=== PATIENT | male | born 1940 | race Caucasian/White ===

== ENCOUNTER 2020-12-13 08:02 | Outpatient (CLI) | payer MEDICARE, SELFPAY ==
--- NOTE | 2020-12-13 18:24 | P.HP_ITS ---
H&P: HPI History of Present Illness Date/Time: 12/13/20 18:24 80-year-old male presents postoperatively with right- sided epistaxis. Status post endoscopic sinus surgery. Chief Complaint: Postoperative epistaxis Review of Systems Constitutional: Constitutional: Denies fatigue, Denies fever(s) and Denies lethargy Eyes: Eyes: Denies blurry vision and Denies change in vision ENT: Reports as per HPI Cardiovascular: Cardiovascular: Denies chest pain Respiratory: Respiratory: Denies cough Endocrine: Endocrine: Denies fatigue Hematologic/Lymphatic: Hematologic/Lymphatic: Denies easy bleeding, Denies easy bruising and Denies lymphadenopathy Allergic/Immunologic: Allergic/Immunologic: Denies seasonal rhinorrhea PMFSH Social History Social History Gender identity (if verbalized by the patient): Male Spiritual care concerns: No Meds Home Medications and Allergies Home Medications Medication Instructions Recorded Confirmed Type sodium,potassium,mag sulfates 17.5 See Rx Instructions PO .COMPLEX 11/14/20 Rx gram-3.13 gram-1.6 gram oral soln #354 ml Adult One Daily Multivitamin 1 tablet PO DAILY 12/13/20 12/13/20 History allopurinol PO DAILY 12/13/20 History lisinopril-hydrochlorothiazide 20 - 25 mg PO DAILY 12/13/20 12/13/20 History nebivolol [Bystolic] 10 mg PO DAILY 12/13/20 12/13/20 History simvastatin 40 mg PO DAILY 12/13/20 12/13/20 History tamsulosin 0.4 mg PO DAILY 12/13/20 12/13/20 History Allergies Allergy/AdvReac Type Severity Reaction Status Date / Time No Known Allergies Allergy Unverified 12/13/20 12:30 Exam Const: General: cooperative, healthy appearing, comfortable, well developed and alert HENMT: Head: normal to inspection, normocephalic and atraumatic Ears: hearing grossly normal bilaterally, external ears normal, TM's normal bilaterally and EAC's normal General nose exam: Normal external nose present, Normal nares present and Other nasal findings present (Right-sided epistaxis mild left epistaxis as well) Face and sinus: normal facial exam Mouth: Yes Normal oral and palatal mucosa present, Yes lip normal, Yes tongue normal, Yes oropharynx normal and Yes moist mucous membranes Teeth and gingiva: dentition normal and gingiva normal Throat: posterior oropharynx normal, tonsils normal and uvula midline Eyes: General: appearance normal, both eyes and all related structures Periorbital: periorbital findings normal Eyelids: eyelids normal Conjunctivae: conjunctivae normal Sclera: sclerae normal Neck: Neck: normal visual inspection, full ROM and no lymphadenopathy Thyroid: thyroid normal Lymphatic: no lymphadenopathy noted Resp: Effort & Inspection: normal respiratory effort and able to speak in complete sentences Cardio: Jugular venous distension: no JVD Neuro: Cranial nerves: Yes CN's II-XII intact bilaterally Assessment and Plan Assessment and plan (1) Postoperative hemorrhage: Status: Acute Assessment and Plan: Plan is for the OR for control of epistaxis will perform endoscopically. Risks were discussed including bleeding infection damage to vision damaged brain CSF leak for further procedures. The patient voiced understanding and agreed. (2) Epistaxis: Code(s): R04.0 - Epistaxis Status: Acute
--- NOTE | 2020-12-13 18:26 | WPDHPUPDATE1 ---
History and Physical Update Update Date/Time: 12/13/20 18:26 History and Physical has been reviewed, including an updated exam of the patient. There are NO changes in the patient's condition. Risks, benefits, and alternatives have been discussed and questions answered. Patient agrees to proceed with procedure.
== END 2020-12-13 08:03 | disposition home or self-care (01) ==
LOC: ANHCOVIDVC 08:02
PROVIDERS: PCP Internal Medicine
DX: Z23 Encounter for immunization (principal)
CPT/HCPCS: 0001A; 91300

== ENCOUNTER → 2020-12-24 00:27 | Outpatient (CLI) | payer MEDICARE, SELFPAY ==
[2020-12-24 18:31] LABS: SARS-CoV-2 RNA PCR Negative
== END ==
PROVIDERS: PCP Internal Medicine; Visit Provider Internal Medicine Gastroenterology
DX: Z01.812 Encounter for preprocedural laboratory examination (principal); Z20.822 Contact with and (suspected) exposure to COVID-19
CPT/HCPCS: C9803; U0003; U0005

== ENCOUNTER 2020-12-27 04:27 | Day surgery (SDC) | payer MEDICARE, SELFPAY ==
[2020-12-13 12:31] VITALS: BMI 28.8
[2020-12-27 08:38] VITALS: BP 147/67; PULSE 79; RESP 18; TEMP 36.6; O2SAT 99
[2020-12-27] MEDS: LACTATED RINGERS 1,000 ML 150 ML IV CONT (08:45)
--- NOTE | 2020-12-27 09:23 | WPDANESEPPF ---
Anes - Initial Pre Proc Eval Procedure: Operation Date: 12/27/20 10:00 Proposed Procedures p Colonoscopy - Alessandro Castaneda MD Date/Time: 12/27/20 09:23 Surgeon: Alessandro Castaneda MD Pre Op Diagnosis: Positive ColoGuard Patient Data Age: 80 Gender: M Height: 5 ft 10 in Weight: 92.7 kg Last Vital Signs Temp 98 F 12/27/20 08:38 Pulse 79 12/27/20 08:38 Resp 18 12/27/20 08:38 BP 147/67 H 12/27/20 08:38 Pulse Ox 99 12/27/20 08:38 Allergies Allergy/AdvReac Type Severity Reaction Status Date / Time No Known Allergies Allergy Unverified 12/27/20 08:36 Home Medications Medication Instructions Recorded Confirmed Type Adult One Daily Multivitamin 1 tablet PO DAILY 12/13/20 12/27/20 History allopurinol PO DAILY 12/13/20 History lisinopril-hydrochlorothiazide 20 - 25 mg PO DAILY 12/13/20 12/27/20 History nebivolol [Bystolic] 10 mg PO DAILY 12/13/20 12/27/20 History simvastatin 40 mg PO DAILY 12/13/20 12/27/20 History tamsulosin 0.4 mg PO DAILY 12/13/20 12/27/20 History Patient hx anesthesia problems: none Family hx anesthesia problems: none PMFSH Social History Social History Living arrangements: with family Gender identity (if verbalized by the patient): Male Spiritual care concerns: No Anes - Eval Final PreProcedure Day of Procedure 12/27/20 09:23 Patient weight: obese Heart: regular rate and rhythm Lungs: clear to auscultation Airway: Mallampati scale Last oral intake: >/= 8 hours ASA classification: III Emergent: no Anesthetic plan: proceed Anesthesia type and monitoring: general GIVS and standard monitoring Informed Consent: The patient's anesthetic plan and its attendant risks and benefits were discussed with the patient/family/POA. Questions were solicited and answers provided to the satisfaction of the patient/family/POA.
--- NOTE | 2020-12-27 09:57 | PM.HPGS ---
History of Present Illness History of Present Illness Consent: Risks, benefits, and alternatives have been discussed and questions answered. Patient agrees to proceed with procedure. Chief complaint: Positive ColoGuard Narrative: Gera Cruz is a 80 year old male with last colonoscopy about 10 years ago, had cologuard + Review of Systems Constitutional: Constitutional: Denies headache(s) and Denies weakness Eyes: Eyes: Denies blurry vision ENT: Reports Normal hearing present, Denies headache(s) and Denies neck pain Cardiovascular: Cardiovascular: Denies chest pain and Denies dyspnea Respiratory: Respiratory: Denies dyspnea Gastrointestinal: Gastrointestinal: Reports no additional gastrointestinal complaints Genitourinary: Genitourinary: Denies dysuria Musculoskeletal: Musculoskeletal: Denies neck pain Integumentary/Breasts: Skin/Breast: Denies dry skin Neurologic: Reports Normal hearing present, Denies headache(s) and Denies weakness Psychiatric: Psychiatric: Denies anxiety Endocrine: Endocrine: Denies change in body appearance Hematologic/Lymphatic: Hematologic/Lymphatic: Denies easy bleeding Allergic/Immunologic: Allergic/Immunologic: Denies urticaria PMFSH Past Medical History Medical History (Updated 12/27/20 @ 09:58 by Alessandro aCstaneda MD) Positive colorectal cancer screening using Cologuard test Social History Social History Living arrangements: with family Gender identity (if verbalized by the patient): Male Spiritual care concerns: No Meds Home Medications and Allergies Home Medications Medication Instructions Recorded Confirmed Type Adult One Daily Multivitamin 1 tablet PO DAILY 12/13/20 12/27/20 History allopurinol PO DAILY 12/13/20 History lisinopril-hydrochlorothiazide 20 - 25 mg PO DAILY 12/13/20 12/27/20 History nebivolol [Bystolic] 10 mg PO DAILY 12/13/20 12/27/20 History simvastatin 40 mg PO DAILY 12/13/20 12/27/20 History tamsulosin 0.4 mg PO DAILY 12/13/20 12/27/20 History Allergies Allergy/AdvReac Type Severity Reaction Status Date / Time No Known Allergies Allergy Unverified 12/27/20 08:36 Vital Signs Vital Signs - 24 hr 12/27/20 08:38 Temperature 98 F Pulse Rate 79 Respiratory Rate 18 Blood Pressure 147/67 H Pulse Oximetry 99 Exam Const: General: comfortable and no acute distress HENMT: General nose exam: Normal nares present Eyes: General: appearance normal, both eyes and all related structures Neck: Neck: no JVD Resp: Auscultation: clear to auscultation bilaterally Cardio: Rate: regular rate Rhythm: regular rhythm GI: Inspection: non-distended GI Palp: Yes Soft to palpation Skin: General skin exam: normal color Neuro: General: gait normal Speech: normal speech Extrem: General: normal to inspection Psych: Mental Status: mental status grossly normal Assessment and Plan Assessment and plan (1) Positive colorectal cancer screening using Cologuard test: Code(s): R19.5 - Other fecal abnormalities Status: Acute Assessment and Plan: colonoscopy
--- NOTE | 2020-12-27 10:27 | ECG_ITS ---
Measurements Intervals [place] Rate: 67 P: RI: 0 QRS: 62 QRSD: 109 T: 31 QT: 422 QTc: 446 Interpretive Statements ATRIAL FIBRILLATION INTRAVENTRICULAR CONDUCTION DELAY BASELINE ARTIFACT- I, II, III, AVR, AVL, AVF, V1-V6 ABNORMAL ECG Electronically Signed On 12-27-2020 12:08:43 CDT by Albin Reich D.O.
[2020-12-27 10:31] VITALS: BP 145/81; PULSE 64; RESP 15; O2SAT 100
--- NOTE | 2020-12-27 10:40 | SUR.PHASEII ---
Pt new onset Atrial fibrillation. EKG completed and given to Dr. Narayan. Call placed to cardiology.
[2020-12-27 10:41] VITALS: BP 131/75; PULSE 60; RESP 15; O2SAT 100
[2020-12-27 10:51] VITALS: BP 150/65; PULSE 60; RESP 18; O2SAT 100
[2020-12-27 11:01] VITALS: BP 150/105; PULSE 88; RESP 27; O2SAT 100
--- NOTE | 2020-12-27 11:03 | SUR.PHASEII ---
Pt's spouse at bedside.
[2020-12-27 11:11] VITALS: BP 140/82; PULSE 61; RESP 27; O2SAT 100
--- NOTE | 2020-12-27 11:21 | SUR.PHASEII ---
Dr. Nails called back. Will look at EKG.
--- NOTE | 2020-12-27 11:49 | SUR.PHASEII ---
Dr. Nails cardiology at bedside states he will schedule an appointment for the pt and start him on xarelto pt ok to discharge. Dr. Robles updated and agrees with the plan.
--- NOTE | 2020-12-27 12:02 | SUR.PHASEII ---
Pt awaiting prescription for Xarelto to be brought down from tomato paste maker office. Bleeding precautions reviewed with pt for xarelto.
--- NOTE | 2020-12-27 12:10 | PM.CNCAR ---
Assessment and Plan Assessment and plan (1) Essential hypertension: Code(s): I10 - Essential (primary) hypertension Status: Acute Assessment and Plan: seems to be pretty well controlled at home. Continue lisinopril / hydrochlorothiazide and Bystolic (2) Atrial fibrillation: Code(s): I48.91 - Unspecified atrial fibrillation Status: Acute Assessment and Plan: newly recognized. He has a chads Vasc score of 3 given his age and high blood pressure history. Anticoagulation is warranted. I did talk about the risks, benefits and alternatives of anticoagulation versus anti-platelet therapy. I also talked about the risk of stroke. Risk benefit ratio would support anticoagulation. He verbalized understanding and is agreeable to start. Will start him on Xarelto at 20 mg p.o. daily. Will check a basic metabolic panel, magnesium level, TSH and free T4 level to ensure electrolyte stability as well as proper dosing of Xarelto. 2D echocardiogram with Doppler will be ordered and reviewed. This is going to be performed as an outpatient. He will have follow-up in our office within 2-4 weeks. If he has any significant bleeding issues that he should stop Xarelto can contact our office or go to the emergency department. He is instructed start his Xarelto in 2 days since he recently had a polyp removed today. He will eventually need an outpatient stress test. Will likely pursue rate control strategy Given his asymptomatic status. He is also instructed to stop his aspirin once he starts Xarelto. (3) Positive colorectal cancer screening using Cologuard test: Code(s): R19.5 - Other fecal abnormalities Status: Acute Assessment and Plan: polyps noted (4) Hyperlipidemia: Code(s): E78.5 - Hyperlipidemia, unspecified Status: Acute Assessment and Plan: continue statin History of Present Illness History of Present Illness Consult date/time: 12/27/20 12:10 Requesting physician: Eder Narayan MD Consult reason: atrial fibrillation Reason For Visit: Positive ColoGuard Narrative: date of service: 12/27/2020 Reason consultation: Atrial fibrillation History: Patient is an 80-year-old male who a consult to see in the GI lab because of and newly recognized atrial fibrillation. Patient was having a colonoscopy today but while on monitor his rhythm was found to be irregular. He does not have a known history of atrial fibrillation. EKG was performed and confirmed atrial fibrillation. Cardiology consultation was therefore requested. Patient was noted to have a couple polyps and diverticulosis but no active bleeding. Polyps were clipped. He does have a history of hypertension but no known cardiac disease otherwise. He sees Dr. Richard as an outpatient. From a cardiac perspective he feels fine and denies any chest pain, shortness of breath, syncope, presyncope, paroxysmal nocturnal dyspnea, orthopnea, edema or palpitations. Review of Systems Review of Systems: All systems reviewed & are unremarkable except as noted in HPI and below Constitutional: Constitutional: Denies weakness Eyes: Eyes: Denies blurry vision ENT: Reports Normal hearing present Cardiovascular: Cardiovascular: Denies chest pain Respiratory: Respiratory: Denies dyspnea Gastrointestinal: Gastrointestinal: Denies abdominal pain Genitourinary: Genitourinary: Denies dysuria Musculoskeletal: Musculoskeletal: Denies neck pain Integumentary/Breasts: Skin/Breast: Denies dry skin Neurologic: Denies headache(s) Psychiatric: Psychiatric: Denies anxiety Endocrine: Endocrine: Denies fatigue Hematologic/Lymphatic: Hematologic/Lymphatic: Denies easy bleeding Allergic/Immunologic: Allergic/Immunologic: Denies GI upset with certain foods PMFSH Past Medical History Medical History (Updated 12/27/20 @ 12:15 by Mauro Nails MD) Essential hypertension Positive colorectal cancer screening using
--- NOTE | 2020-12-27 12:18 | SUR.PHASEII ---
Addendum entered by Francine Heath RN 12/27/20 12:56: Pt to start Xarelto on Wednesday per record retrieval specialist instructions. Original Note: Pt recieved prescription for xarelto and appointment time from the record retrieval specialist office.
--- NOTE | 2020-12-27 13:46 | SUR.PHASEII ---
Information on Xarelto printed from [employer] on Xarelto mailed to pt address. Pt called and notified.
== END 2020-12-27 12:19 | disposition home or self-care (01) ==
PROVIDERS: PCP Internal Medicine; Visit Provider Internal Medicine Gastroenterology
PROC: 0DJD8ZZ Inspection of Lower Intestinal Tract, Via Natural or Artificial Opening Endoscopic (ICD-10-PCS; CPT 45378; principal; 2020-12-27 10:00)
DX: R19.5 Other fecal abnormalities (principal); D12.2 Benign neoplasm of ascending colon; D12.0 Benign neoplasm of cecum; K57.30 Diverticulosis of large intestine without perforation or abscess without bleeding; K64.8 Other hemorrhoids; I10 Essential (primary) hypertension; I48.91 Unspecified atrial fibrillation; E78.5 Hyperlipidemia, unspecified
CPT/HCPCS: 45385; 88305; 93005; C9803; J2704; J7120; U0003; U0005

== ENCOUNTER 2021-01-03 07:59 | Outpatient (CLI) | payer MEDICARE, SELFPAY | END 2021-01-03 08:00 | disposition home or self-care (01) | LOC: ANHCOVIDVC 07:59 | PROVIDERS: PCP Internal Medicine | DX: Z23 Encounter for immunization (principal) | CPT/HCPCS: 0002A; 91300 ==

== ENCOUNTER 2021-12-08 12:47 | Outpatient (CLI) | payer MEDICARE, SELFPAY ==
--- NOTE | ~2021-12-08 | US_ITS ---
EXAMINATION: US carotid duplex BI DATE: 12/08/2021 14:51 INDICATION: Dizziness. Pain in the back of the head. TECHNIQUE: Grayscale, color Doppler, and pulsed Doppler images of the cervical carotid arteries were obtained. The degree of vessel stenosis is placed in one of the following categories: normal, <50%, 5 0-69%, >=70% but less than near-occlusion, near-occlusion, or total occlusion. Note that percent sten osis relative to normal distal artery lumen diameter is indirectly measured from velocity measurement s as described by Nigel, et al. Radiology 2003; 229:340-346. COMPARISON: None. FINDINGS: RIGHT: The right common carotid artery (CCA) peak systolic velocity (PSV) is 175 cm/s. The right internal ca rotid artery (ICA) PSV is 90 cm/s. The right ICA end-diastolic velocity (EDV) is 18 cm/s. The right I CA/CCA PSV ratio is 0.5. Grayscale and color Doppler images yield an estimate of <50% diameter reduct ion from plaque in the ICA. There is antegrade flow in the right vertebral artery. LEFT: The left CCA PSV is 121 cm/s. The left ICA PSV is 88 cm/s. The left ICA EDV is 16 cm/s. The left ICA/ CCA PSV ratio is 0.7. Grayscale and color Doppler images yield an estimate of <50% diameter reduction from plaque in the ICA. There is antegrade flow in the left vertebral artery. IMPRESSION: 1. <50% stenosis in the right internal carotid artery. 2. <50% stenosis in the left internal carotid artery. Reviewed, dictated and finalized at location A.
== END 2021-12-08 12:48 | disposition home or self-care (01) ==
LOC: ANHIMG 12:51
PROVIDERS: PCP Internal Medicine; Visit Provider Internal Medicine Cardiovascular Disease
DX: R42 Dizziness and giddiness (principal); I65.23 Occlusion and stenosis of bilateral carotid arteries
CPT/HCPCS: 93880

== ENCOUNTER 2024-06-29 16:06 | Outpatient (CLI) | payer MEDICARE, SELFPAY ==
--- NOTE | ~2024-06-29 | US_ITS ---
RIGHT LOWER EXTREMITY VENOUS ULTRASOUND Ordering provider: Mauro Nails MD History: . leg edema . Comparison: None. FINDINGS: --COMMON FEMORAL: Patent and free of thrombus. Normal compressibility, phasic flow and augmentation. --PROXIMAL SUPERFICIAL FEMORAL: Patent and free of thrombus. Normal compressibility, phasic flow and augmentation. --DISTAL SUPERFICIAL FEMORAL: Patent and free of thrombus. Normal compressibility, phasic flow and au gmentation. --POPLITEAL: Patent and free of thrombus. Normal compressibility, phasic flow and augmentation. --POSTERIOR TIBIAL: Patent and free of thrombus. Normal compressibility, phasic flow and augmentation . IMPRESSION: Negative right lower extremity venous US. No deep vein thrombosis. Reviewed, dictated and finalized at location A.
== END 2024-06-29 16:07 | disposition home or self-care (01) ==
LOC: ANHIMG 16:11
PROVIDERS: PCP Internal Medicine; Visit Provider Internal Medicine Cardiovascular Disease
DX: R60.0 Localized edema (principal)
CPT/HCPCS: 93971

== ENCOUNTER 2024-07-10 14:03 | Inpatient (IN) | payer MEDICARE, SELFPAY ==
[2024-07-10] VITALS (8 sets, daily range): BP systolic 113–138; BP diastolic 43–67; PULSE 59–82; RESP 16; TEMP 36.4–36.9; O2SAT 97–100
--- NOTE | ~2024-07-10 | XR_ITS ---
XR chest 2V Ordering provider: German Young MD History: 84 years Male with . syncope . Comparison: None. FINDINGS: MEDIASTINUM: The cardiac silhouette is slightly enlarged. LUNGS: No infiltrates, effusions or pneumothorax. OTHER: No free air under the diaphragm. Degenerative spine. IMPRESSION: No acute cardiopulmonary pathology. Reviewed, dictated and finalized at location A.
--- NOTE | ~2024-07-10 | MR_ITS ---
EXAMINATION: MR brain/brain stem wo con DATE: 07/12/2024 08:14 INDICATION: Suspicion for stroke and syncope. TECHNIQUE: Magnetic resonance imaging (MRI) of the brain and brainstem was performed without intraven ous contrast. Sequences included sagittal and axial T1-weighted SE, axial diffusion-weighted FS SE, , axial T2-weighted FLAIR, and axial T2-weighted FSE. Apparent diffusion coefficient (ADC) maps were c reated. COMPARISON: None. FINDINGS: Posterior right scalp hematoma. Moderate-sized region of encephalomalacia at the right frontal lobe e xtending into the anterior insula consistent with sequela of chronic infarct. There are no areas of r estricted diffusion to suggest acute infarction. No intracranial hemorrhage or abnormal intracranial mass lesion. There are scattered areas of nonspecific increased T2-weighted signal intensity in the c erebral white matter, predominantly involving the deep and periventricular white matter. There are no intraparenchymal signal abnormalities seen on the other pulse sequences. The ventricles are symmetri c and normal in size. There are no abnormal extra-axial fluid collections. Flow voids are seen in the cerebral arteries on the T2-weighted sequences consistent with their expected patency. Changes of bi lateral intraocular lens replacement. Visualized orbits and soft tissues are unremarkable. Mild mucos al thickening the bilateral ethmoid sinuses. 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 IMPRESSION: 1. Aging brain with chronic infarct involving the right frontal lobe and insula. No acute intracrania l process. 2. Right posterior scalp hematoma. Reviewed, dictated and finalized at location A. IMPRESSION: 1. Aging brain with chronic infarct involving the right frontal lobe and insula . No acute intracranial process. 2. Right posterior scalp hematoma.
--- NOTE | ~2024-07-10 | CT_ITS ---
EXAMINATION: CT lumbar spine wo con DATE: 07/10/2024 22:39 INDICATION: Back pain. Fall. TECHNIQUE: Computed tomography (CT) of the lumbar spine was performed without intravenous contrast. A utomated exposure control and iterative reconstruction technique were employed. The dose-length produ ct was 1271.13 mGy-cm. COMPARISON: Lumbar spine radiographs 07/10/2024 FINDINGS: There is a 4 mm stone in left kidney. There is a 4 mm stone in right kidney. The prostate i s severely enlarged. Alignment is normal. Vertebral body heights are normal. There is mildly decrease d disc height at L1-L2 and L2-L3. There are bridging endplate osteophytes at T11-T12 and from L1 to L 4 and L5-S1, consistent with diffuse idiopathic skeletal hyperostosis. There is fracture of the endpl ate osteophytes at T12-L1. The following disc levels are specifically discussed: T12-L1: The disc does not extend beyond the endplate margin. There is severe bilateral facet joint os teoarthritis. There is no neural foraminal stenosis. There is no central canal stenosis. L1-L2: The disc is bulging. There is severe bilateral facet joint osteoarthritis. There is mild right neural foraminal stenosis. There is mild central canal stenosis. L2-L3: The disc is bulging. There is severe bilateral facet joint osteoarthritis. There is mild bilat eral neural foraminal stenosis. There is mild central canal stenosis. L3-L4: The disc is bulging. There is severe bilateral facet joint osteoarthritis. There is mild bilat eral neural foraminal stenosis. There is mild central canal stenosis. L4-L5: The disc is bulging. There is severe bilateral facet joint osteoarthritis. There is moderate r ight and severe left neural foraminal stenosis. There is mild central canal stenosis. L5-S1: The disc does not extend beyond the endplate margin. There is severe bilateral facet joint ost eoarthritis. There is mild bilateral neural foraminal stenosis. There is no central canal stenosis. IMPRESSION: 1. DISH with nondisplaced fracture through the endplate osteophytes at T12-L1. 2. Moderate lumbar spondylosis. Reviewed, dictated and finalized at location A.
--- NOTE | ~2024-07-10 | MR_ITS ---
MRI of the lumbar spine Clinical History: Osteophyte fracture T12-L1, DISH Technique: Axial T2-weighted images, and sagittal T1-weighted, T2-weighted, and and T2 fat-sat images were acquired. Findings: No acute fracture or dislocation seen in the lumbar spine. Vertebral bodies maintain normal height and alignment. No suspicious bone marrow signal abnormality seen. At L1-L2, there is no significant disc bulge or herniation. There is moderate facet hypertrophy. No c entral canal stenosis or neural foraminal narrowing. At L2-L3, there is no significant disc bulge or herniation. There is moderate facet hypertrophy. No s refugio canal stenosis or neural foraminal narrowing. L3-L4, there is no significant disc bulge or herniation. There is moderate to advanced facet hypertro phy. No spinal canal stenosis. There is minimal left neural foraminal narrowing. Right neural foramen preserved. At L4-L5, there is diffuse disc bulge and severe facet arthropathy, resulting in severe spinal canal stenosis/thecal sac compression. There is severe left neural foraminal narrowing, and moderate right neural foraminal narrowing. L5-S1, there is minimal disc bulge with advanced facet arthropathy. No central canal stenosis or defi nite neural foraminal narrowing. Paravertebral soft tissues are unremarkable. Impression: Severe degenerative spondylosis at L4-L5, as detailed above. Mild degenerative changes in the remainder of the lumbar spine. No fracture or subluxation seen. Reviewed, dictated and finalized at [facility]. Impression: Severe degenerative spondylosis at L4-L5, as detailed above. Mild degenerative changes in the remainder of the lumbar spine. No fracture or subluxation seen.
--- NOTE | ~2024-07-10 | XR_ITS ---
EXAMINATION: XR lumbar spine 2-3V DATE: 07/10/2024 17:29 INDICATION: Low back pain. Fall. TECHNIQUE: 3 views of lumbar spine were obtained. COMPARISON: None. FINDINGS: Alignment is normal. Vertebral body heights are normal. There is mildly decreased disc heig ht at L2-L3. There are bridging endplate osteophytes at multiple levels in the spine, consistent with diffuse idiopathic skeletal hyperostosis (DISH). There is multilevel facet joint hypertrophy, severe in lower lumbar spine. IMPRESSION: 1. Mild lumbar spondylosis. 2. DISH. Reviewed, dictated and finalized at location A.
--- NOTE | ~2024-07-10 | CT_ITS ---
EXAMINATION: CTA brain carotid DATE: 07/11/2024 21:02 INDICATION: Syncope. TECHNIQUE: Computed tomographic angiography (CTA) of the head was performed without and with 100 mL O [id number] intravenous contrast. CTA of the neck was performed with intravenous contrast. Automated exposure control and iterative reconstruction technique were employed. The dose-length product was 1 648.56 mGy-cm. Maximum intensity projection and volume rendered 3D-reconstructions were created by nany cleary technologist on a separate workstation. COMPARISON: Head CT 07/10/2024 FINDINGS: HEAD CTA: There is an old infarct involving the right frontal lobe and right insula. There are scatte red areas of low attenuation in the cerebral white matter, which is within normal limits for the benedict ent's age. There is no intracranial hemorrhage, acute infarction, or abnormal intracranial mass lesio n. The ventricles are normal in size. There are likely changes of ocular lens replacement surgeries. There is mild mucosal thickening in the ethmoid sinuses. The mastoid air cells are normal. There is r ight posterior scalp soft tissue swelling. Right vertebral artery is dominant. There is no significan t stenosis of basilar artery or the posterior cerebral arteries. There is no significant stenosis of the intracranial internal carotid arteries or anterior or middle cerebral arteries. Anterior communic ating artery is normal. The posterior communicating arteries are normal. There is no aneurysm. NECK CTA: There are no pathologically enlarged lymph nodes. There is no significant stenosis of the v ertebral arteries. There is plaque in the proximal internal carotid. There is 0% stenosis of the prox imal right internal carotid artery relative to normal distal artery lumen diameter (NASCET criteria). There is 0% stenosis of the proximal left internal carotid artery relative to normal distal artery l umen diameter. There is severe cervical spondylosis. IMPRESSION: 1. 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 2. No aneurysm or significant intracranial arterial stenosis. 3. 0% stenosis of the proximal internal carotid arteries relative to normal distal artery lumen diame ters (NASCET criteria). Reviewed, dictated and finalized at location A. IMPRESSION: 1. 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 2. No aneurysm or significant intracranial arterial stenosis. 3. 0% stenosis of the proximal internal carotid arteries relative to normal dis jasmine artery lumen diameters (NASCET criteria).
--- NOTE | ~2024-07-10 | CT_ITS ---
EXAMINATION: CT brain wo con DATE: 07/10/2024 14:53 INDICATION: Head injury. TECHNIQUE: Computed tomography (CT) of the head was performed without intravenous contrast. The mA wa s adjusted according to patient size. Iterative reconstruction technique was employed. The dose-lengt h product was 832.33 mGy-cm. COMPARISON: None FINDINGS: There is an old infarct involving right frontal lobe and right insula. There are scattered areas of low attenuation in the cerebral white matter, which is within normal limits for the patient' s age. There is no intracranial hemorrhage, acute infarction, or abnormal intracranial mass lesion. T he ventricles are normal in size. There is a right posterior scalp hematoma. There are likely changes of ocular lens replacement surgeries. There is mild mucosal thickening in the ethmoid sinuses. The m astoid air cells are normal. IMPRESSION: 1. 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 Reviewed, dictated and finalized at location A.
--- NOTE | 2024-07-10 14:24 | ECG_ITS ---
Test Date: 2024-07-10 14:31:05 Measurements Intervals [place] Rate: 52 P: 0 VT: 0 QRS: 61 QRSD: 112 T: 38 QT: 435 QTc: 407 Interpretive Statements SINUS BRADYCARDIA FIRST DEGREE AV BLOCK MODERATE INTRAVENTRICULAR CONDUCTION DELAY [110+ ms QRS DURATION] VENTRICULAR PREMATURE COMPLEX ABNORMAL RHYTHM ECG No previous ECG available for comparison Electronically Signed On 07-10-2024 14:39:36 CDT by Cas Kidd M.D.
[2024-07-10 14:51] LABS: Basophils Absolute Auto 0.1 K/mm3 (0.0-0.1); Basophils Percent Auto 0.7 % (0.2-1.2); Eosinophils Absolute Auto 0.1 K/mm3 (0-0.3); Hematocrit 37.3 % (42.0-52.0); Immature Granulocyte Absolute 0.03 K/mm3 (0.00-0.031); Immature Granulocyte Percent A 0.4 % (0-0.5); Lymphocytes Absolute Auto 2.08 K/mm3 (0.9-3.2); Lymphocytes Percent Auto 25.8 % (18.3-44.2); Mean Corpuscular HGB Conc 32.2 g/dl (32-36); Mean Corpuscular Hemoglobin 31.3 pg (26-34); Mean Corpuscular Volume 97.1 fl (80-100); Mean Platelet Volume 11.2 fl (7.4-10.4); Monocytes Absolute Auto 0.4 K/mm3 (0.1-0.6); Monocytes Percent Auto 5.3 % (2.6-8.5); Neutrophils Absolute Auto 5.4 K/mm3 (1.3-6.7); Neutrophils Percent Auto 66.8 % (45.5-73.1); Platelet Count Result 148 k/mm3 (150-375); Red Blood Count 3.84 M/mm3 (4.6-6.20); White Blood Count 8.1 K/mm3 (4.5-10.0)
[2024-07-10 15:02] LABS: Alanine Aminotransferase 15 U/L (6-50); Albumin Level 3.9 g/dL (3.5-5.1); Alkaline Phosphatase 64 U/L (38-126); Anion Gap 7 mmol/L (4-12); Aspartate Amino Transferase 27 U/L (17-59); Bilirubin,Total 0.8 mg/dL (0.2-1.3); Blood Urea Nitrogen 38 mg/dL (9-20); Calcium 9.6 mg/dL (8.4-10.2); Carbon Dioxide 29 mmol/L (22-30); Chloride 102 mmol/L (98-107); Estimated CRCL calculation 34 ml/min; Estimated Glomerular Filt Rate 44; Glucose 155 mg/dL (65-110); Potassium 3.6 mmol/L (3.4-5.0); Sodium 138 mmol/L (137-145)
--- NOTE | 2024-07-10 17:22 | PC.NURSE ---
Lab called to add on ordered Troponin.
[2024-07-10 17:47] LABS: Troponin I < 0.012 ng/mL (0.000-0.034)
--- NOTE | 2024-07-10 18:03 | ED.SYNCOPE ---
HPI - Syncope General Chief Complaint: Syncope Stated Complaint: syncopy Time Seen by Provider: 07/10/24 14:26 History of Present Illness HPI narrative: patient is an 84-year-old male who presents ER with syncope. 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 Does have a hematoma. He takes Xarelto for atrial fibrillation. Patient found to be bradycardic by EMS and on arrival to ER. He does take Bystolic. Patient is oriented to self and place but not year or month. He does report some mild low back pain but no numbness or weakness the extremities. Patient did have loss of urine and emesis as result of this episode. Related Data Home Medications Medication Instructions Recorded Confirmed Adult One Daily Multivitamin 1 tablet PO DAILY 12/13/20 12/27/20 allopurinol PO DAILY 12/13/20 lisinopril-hydrochlorothiazide 20 - 25 mg PO DAILY 12/13/20 12/27/20 nebivolol 10 mg tablet (Bystolic) 10 mg PO DAILY 12/13/20 12/27/20 simvastatin 40 mg tablet 40 mg PO DAILY 12/13/20 12/27/20 tamsulosin 0.4 mg capsule 0.4 mg PO DAILY 12/13/20 12/27/20 Allergies Allergy/AdvReac Type Severity Reaction Status Date / Time No Known Allergies Allergy Unverified 12/27/20 08:36 Review of Systems Review of Systems: All systems reviewed & are unremarkable except as noted in HPI and below Constitutional: Constitutional: Reports no additional constitutional complaints Cardiovascular: Cardiovascular: Reports no additional cardiovascular complaints Respiratory: Respiratory: Reports no additional respiratory complaints Gastrointestinal: Gastrointestinal: Reports no additional gastrointestinal complaints Neurologic: Reports syncope, Reports headache(s), Denies focal weakness and Denies numbness [facility] Past Medical History Medical History (Updated 07/10/24 @ 18:34 by Jack Newton MD) Essential hypertension Positive colorectal cancer screening using Cologuard test Family History Family History (Updated 12/27/20 @ 12:13 by Mauro Nails MD) Mother Cerebrovascular accident Social History Social History (Updated 12/27/20 @ 12:13 by Mauro Nails MD) Smoking status: Never smoker Alcohol intake: never Substance use: never Living arrangements: with family Gender identity (if verbalized by the patient): Male Spiritual care concerns: No Exam Narrative: GENERAL: Well-appearing , emesis particulate in robin, well-nourished, and in no acute distress. HEAD: Normocephalic, atraumatic. EYES: PERRL and EOMI. ENT: Mucous membranes moist. CHEST: Clear to auscultation. No respiratory distress. HEART: bradycardic with occasional drop be correlating with PVC. Normal peripheral pulses. ABDOMEN: Soft, nontender, nondistended. Back: No midline tenderness of the T-spine. Mild tenderness near L4 along the midline but no paraspinal tenderness. No step-off/abrasion/bruising. EXTREMITIES: Normal range of motion. No edema. SKIN: Warm, dry, no rash. NEURO: Alert and oriented x3 after little time in the ER. Course Course Emergency Course: Patient return to mental baseline. Mild concussion. 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 Bradycardia has improved. Will admit for observation given the unprovoked nature syncopal event. Will have Cardiology consulted. Vital Signs Vital signs: Vital Signs Temperature 97.5 F L 07/10/24 14:23 Pulse Rate 60 07/10/24 14:23 Respiratory Rate 16 07/10/24 14:23 Blood Pressure 130/54 L 07/10/24 14:23 Pulse Oximetry 100 07/10/24 14:23 Oxygen Delivery Room Air 07/10/24 14:23 Temperature 97.5 F L 07/10/24 14:23 Pulse Rate 59 L 07/10/24 17:32 Respiratory Rate 16 07/10/24 17:32 Blood Pressure 127/56 L 07/10/24 17:32 Pulse Oximetry 100 07/10/24 17:32 Oxygen Delivery Room Air 07/10/24 14:23 MDM - Syncope Lab Data
[2024-07-10 19:06] LABS: Troponin I < 0.012 ng/mL (0.000-0.034)
[2024-07-10] MEDS: HYDROcodone/acetaminophen (*CRX) 5-325 MG TABLET 1 TAB PO (19:12)
[2024-07-10] MEDS: ACETAMINOPHEN 325 MG TABLET 650 MG PO (19:13)
--- NOTE | 2024-07-10 20:20 | ECG_ITS ---
Test Date: 2024-07-10 20:37:15 Measurements Intervals [place] Rate: 72 P: 74 DE: 340 QRS: 62 QRSD: 105 T: 41 QT: 387 QTc: 424 Interpretive Statements SINUS RHYTHM WITH FIRST DEGREE AV BLOCK WITH OCCASIONAL SUPRAVENTRICULAR PREMATURE COMPLEXES Compared to ECG 07/10/2024 14:31:05 Sinus bradycardia no longer present Electronically Signed On 07-11-2024 12:01:31 CDT by Jesica Burch M.D.
--- NOTE | 2024-07-10 20:28 | PM.IMHP ---
H&P: HPI History of Present Illness Date/Time: 07/10/24 20:28 [facility] Past Medical History Medical History (Updated 07/10/24 @ 18:34 by Jack Newton MD) Essential hypertension Positive colorectal cancer screening using Cologuard test Family History Family History Mother Cerebrovascular accident Social History Social History (Updated 12/27/20 @ 12:13 by Mauro Nails MD) Smoking status: Never smoker Alcohol intake: never Substance use: never Do You Feel Safe in your Home?: Yes Lack of Transportation: No Lack of Food: Never True Current Housing: I Have Housing Concerned About Future Housing: No Difficulty Paying Gas/Electric Bills: No Difficulty Paying for Meds: No Currently Unemployed: No Education: Bachelor's Degree Difficulty w/ Childcare or Family Care: No Living arrangements: with family Gender identity (if verbalized by the patient): Male Spiritual care concerns: No Meds Home Medications and Allergies Home Medications Medication Instructions Recorded Confirmed Type Adult One Daily Multivitamin 1 tablet PO DAILY 12/13/20 07/10/24 History nebivolol 10 mg tablet (Bystolic) 10 mg PO DAILY 12/13/20 07/10/24 History simvastatin 40 mg tablet 40 mg PO DAILY 12/13/20 07/10/24 History tamsulosin 0.4 mg capsule 0.4 mg PO DAILY 12/13/20 07/10/24 History allopurinol 300 mg tablet 300 mg PO DAILY 07/10/24 07/10/24 History lisinopril 20 1 tablet PO DAILY 07/10/24 07/10/24 History mg-hydrochlorothiazide 25 mg tablet rivaroxaban 20 mg tablet (Xarelto) 20 mg PO DAILY 07/10/24 07/10/24 History Allergies Allergy/AdvReac Type Severity Reaction Status Date / Time No Known Allergies Allergy Unverified 12/27/20 08:36 Vital Signs Vital Signs - 24 hr 07/10/24 14:23 07/10/24 15:45 07/10/24 17:13 Temperature 97.5 F L Pulse Rate 60 61 60 Respiratory Rate 16 16 Blood Pressure 130/54 L 121/61 113/52 L Pulse Oximetry 100 97 Oxygen Delivery Room Air 07/10/24 17:13 07/10/24 17:32 10/14/24 19:52 Temperature 98.4 F Pulse Rate 77 59 L 82 Respiratory Rate 16 16 Blood Pressure 122/60 127/56 L 114/49 L Pulse Oximetry 100 100 Oxygen Delivery H&P: Results Labs Labs: Short CBC 07/10/24 Range/Units 14:43 WBC 8.1 (4.5-10.0) K/mm3 Hgb 12.0 L (14.0-18.0) g/dL Hct 37.3 L (42.0-52.0) % Plt Count 148 L (150-375) k/mm3 BMP 07/10/24 14:43 Sodium 138 Potassium 3.6 Chloride 102 Carbon Dioxide 29 BUN 38 H Creatinine 1.50 H Glucose 155 H Calcium 9.6 Cardiac Enzymes 07/10/24 07/10/24 Range/Units 14:43 18:39 Troponin I < 0.012 < 0.012 (0.000-0.034) ng/mL Liver Function 07/10/24 Range/Units 14:43 Total Bilirubin 0.8 (0.2-1.3) mg/dL AST 27 (17-59) U/L ALT 15 (6-50) U/L Alkaline Phosphatase 64 (38-126) U/L Albumin 3.9 (3.5-5.1) g/dL
[2024-07-10 21:48] LABS: Troponin I 0.014 ng/mL (0.000-0.034)
[2024-07-10] MEDS: POTASSIUM CHLORIDE 20 MEQ ER TABLET 40 MEQ PO (21:58)
--- NOTE | 2024-07-10 22:00 | PM.IMHP ---
H&P: HPI History of Present Illness Date/Time: 07/10/24 21:00 Chief Complaint: ?I fell? Narrative: 84-year-old male with past medical history paroxysmal atrial fibrillation, essential hypertension, hyperlipidemia, gout and BPH who presented to the ER via EMS from [facility] [employer] on the patient was noted to suddenly fall backwards and strike his head. It is suspected the patient actually had a syncopal episode resulting in his fall. Patient was noted have a parietal hematoma and is on Xarelto. He denies any headache or vision changes. In the field the patient was noted to be bradycardic when patient arrived to the ER he had some mild bradycardia by EKG with a rate of 52 demonstrated what looks like first-degree block with frequent supraventricular premature ventricular complexes. The patient is on Bystolic. His QTC was normal. After arriving to the medical floor the patient heart rate has been normal sinus with rates between the 70s and 80s. The patient denies any prodrome all symptoms. He does have chronic dyspnea on exertion that is unchanged from baseline. He has chronic (for the last 8-10 months) lymphedema of the right lower extremity in an area of prior fracture that has improved since he started wearing support socks. He denies any chest pain, cough, congestion, vertigo, or vision changes. 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 Patient is alert oriented to person, time and situation. He knows that he is in a hospital but despite multiple attempts cannot tell me which hospital he is at despite naming his physician (Dr. Nails) that actually practice in the hospital. Source of information is from patient who is a relatively good historian and from ER physician report and review of past medical records/external medication records. He denied any recent changes in medications but it appears that the patient was started on Lasix 20 mg daily in late May. His Bystolic dose has not changed. He has chronic BPH. He reports that his urinary frequency although chronic has worsened in recent months and he is getting up 4-5 times a night to pee. Over the last several months he has also developed dribbling postvoid. He feels like at times he does not completely empty his bladder. He has not followed up with his urologist in the last year so. He denies any changes in his chronic urinary symptoms. Patient also reports that he has some relatively mild back pain on a day-to-day basis over the last couple of months. But since his fall he is having severe back pain with lifting his legs or even slight movements in the bed. The pain is also more localized in the mid lumbar spine and is 10/10 in intensity despite [place] and morphine. He reports his sensation is intact. He has not had any bowel or bladder incontinence. He reports he does not take any prescription medications for his back pain in his pain usually improves with activity at home. Review of Systems Review of Systems: 12 systems were reviewed with pertinent positives and negatives per HPI. Except as documented in the HPI, all other systems were reviewed and are negative. 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 Patient denies any known history of CVA or symptoms. Essential hypertension Paroxysmal atrial fibrillation Presbycusis of both ears With bilateral hearing aids Surgical History Surgical History (Updated 07/10/24 @ 22:27 by Fany Diaz DO) History of colonoscopy with polypectomy (2020) Hx of cholecystectomy Status post cataract extraction of both eyes with insertion of intraocular lens Status post open reduction with internal fixation of fracture Right tibia Family History Family History (R
[2024-07-11] VITALS (13 sets, daily range): BP systolic 103–130; BP diastolic 50–78; PULSE 54–74; RESP 16; TEMP 36.4–37.1; O2SAT 91–98; BMI 26.2
[2024-07-11 06:15] LABS: Basophils Percent Auto 0.4 % (0.2-1.2); Eosinophils Percent Auto 0.2 % (0-4.4); Hematocrit 35.2 % (42.0-52.0); Hemoglobin 11.4 g/dL (14.0-18.0); Immature Granulocyte Absolute 0.03 K/mm3 (0.00-0.031); Immature Granulocyte Percent A 0.3 % (0-0.5); Lymphocytes Absolute Auto 1.98 K/mm3 (0.9-3.2); Lymphocytes Percent Auto 19.7 % (18.3-44.2); Mean Corpuscular HGB Conc 32.4 g/dl (32-36); Mean Corpuscular Hemoglobin 31.9 pg (26-34); Mean Corpuscular Volume 98.6 fl (80-100); Mean Platelet Volume 11.3 fl (7.4-10.4); Monocytes Absolute Auto 0.6 K/mm3 (0.1-0.6); Monocytes Percent Auto 6.2 % (2.6-8.5); Neutrophils Absolute Auto 7.4 K/mm3 (1.3-6.7); Neutrophils Percent Auto 73.2 % (45.5-73.1); Platelet Count Result 150 k/mm3 (150-375); Red Blood Count 3.57 M/mm3 (4.6-6.20); White Blood Count 10.1 K/mm3 (4.5-10.0)
[2024-07-11 06:18] LABS: Alanine Aminotransferase 15 U/L (6-50); Albumin Level 3.7 g/dL (3.5-5.1); Alkaline Phosphatase 51 U/L (38-126); Anion Gap 7 mmol/L (4-12); Aspartate Amino Transferase 26 U/L (17-59); Blood Urea Nitrogen 44 mg/dL (9-20); Calcium 9.6 mg/dL (8.4-10.2); Carbon Dioxide 31 mmol/L (22-30); Chloride 102 mmol/L (98-107); Estimated CRCL calculation 24 ml/min; Estimated Glomerular Filt Rate 30; Glucose 109 mg/dL (65-110); Potassium 4.8 mmol/L (3.4-5.0); Sodium 140 mmol/L (137-145)
[2024-07-11] MEDS: TAMSULOSIN HCL 0.4 MG CAPSULE PO (08:37)
[2024-07-11] MEDS: allopurinoL 300 MG TABLET PO (08:38)
[2024-07-11] MEDS: RIVAROXABAN 20 MG TABLET PO (08:38)
[2024-07-11] MEDS: SIMVASTATIN 20 MG TABLET 40 MG PO (08:38)
[2024-07-11] MEDS: HYDROcodone/acetaminophen (*CRX) 5-325 MG TABLET 1 TAB PO (08:42)
--- NOTE | 2024-07-11 10:14 | PM.CNCAR ---
Assessment and Plan Assessment and plan (1) Bradycardia: Code(s): R00.1 - Bradycardia, unspecified Status: Acute Assessment and Plan: He has sinus bradycardia with first degree AV block as well as intermittent second degree AV block Type 1. No significant bradycardia or pauses. Hold Bystolic. (2) Syncope: Qualifiers: Syncope type: unspecified Qualified Code(s): R55 - Syncope and collapse Code(s): R55 - Syncope and collapse Status: Acute Assessment and Plan: Etiology is unclear at this point. Possibly related to arrhythmia/bradycardia, but no significant bradycardia, pauses, or high degree AVB that would explain syncope. As above, hold bystolic and continue to monitor on telemtry. Outpatient bus driver/monitor for ongoing assessment upon discharge. 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) use of anticoagulants Status: Acute Assessment and Plan: Continue Xarelto for pAF (4) Hyperlipidemia: Code(s): E78.5 - Hyperlipidemia, unspecified Status: Acute Assessment and Plan: On statin (5) Lumbar back pain: Code(s): M54.50 - Low back pain, unspecified Status: Acute Assessment and Plan: Pain management per primary team History of Present Illness History of Present Illness Consult date/time: 07/11/24 10:14 Requesting physician: Jack Newton MD Consult reason: Other (syncope, bradycardia) Reason For Visit: Syncope Narrative: Gera Cruz is an 84 year old male with atrial fibrillation, hypertension, and hyperlipidemia who enters the hospital following a syncopal episode. The patient was walking around [employer] yesterday when his reported she looked back and saw him fall backwards and lose consciousness. The patient does not recall this event but reports he felt well prior to this event and denies feeling any chest pain, palpitations, shortness of breath, dizziness. He denies any past syncopal events. He was noted to be bradycardic in the emergency department which prompted cardiology consultation. At the time of my evaluation he is lying comfortably in bed and has a complaint of back pain which is chronic but worsened by his fall yesterday. No other active complaints at this time. 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 Patient denies any known history of CVA or symptoms. Essential hypertension Paroxysmal atrial fibrillation Presbycusis of both ears With bilateral hearing aids Surgical History Surgical History History of colonoscopy with polypectomy (2020) Hx of cholecystectomy Status post cataract extraction of both eyes with insertion of intraocular lens Status post open reduction with internal fixation of fracture Right tibia Family History Family History Mother Cerebrovascular accident Social History Social History Social History: The patient lives at home with his of 62 years. They raised 3 daughters. The patient still drives. 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 He is a lifelong nonsmoker and does not drink alcohol. Code status: DNR/DNI (the patient states that if he were in a pre arrest situation with a cardiac arrhythmia he would be okay with external pacing or medications to keep his heart rate up however if his heart actually stopped he would not want extraordinary measures with CPR or ventilator support.) Surrogate decision m
--- NOTE | 2024-07-11 10:28 | P.PNIM_ITS ---
Progress Note: A&P Assessment and Plan (1) Syncope: Qualifiers: Syncope type: unspecified Qualified Code(s): R55 - Syncope and collapse Code(s): R55 - Syncope and collapse Status: Acute Assessment and Plan: 07/11/24: * sustained a ground level fall while at [employer], thought to be a syncopal episode * orthostatic blood pressures ordered Q shift * cardiology consulted * Bystolic held per cardiology recommendation * echo ordered with bubble study * neurology consulted * EEG ordered * MRI of brain and brainstem ordered without contrast * CTA of brain and carotids ordered (2) Bradycardia: Code(s): R00.1 - Bradycardia, unspecified Status: Acute Assessment and Plan: 07/11/24: * EKG showing sinus bradycardia with first-degree AV block a rate of 52, QTC 407 * Bystolic held per cardiology recommendation * cardiology consulted for additional syncope workup (3) Hematoma of right parietal scalp: Qualifiers: Encounter type: initial encounter Qualified Code(s): S00.03XA - Contusion of scalp, initial encounter Code(s): S00.03XA - Contusion of scalp, initial encounter Status: Acute Assessment and Plan: 07/11/24: * likely due to fall * head CT was negative for any acute intracranial process, 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 (4) Lumbar back pain: Code(s): M54.50 - Low back pain, unspecified Status: Acute Assessment and Plan: 07/11/24: * lumbar spine x-ray showed mild lumbar spondylosis and DISH * lumbar spine CT shown dish with nondisplaced fracture through the endplate osteophytes at T12-L1, moderate lumbar spondylosis * neurosurgery consulted * continue pain control (5) Essential hypertension: Code(s): I10 - Essential (primary) hypertension Status: Acute Assessment and Plan: 07/11/24: * blood pressure ranging * continue lisinopril and hydrochlorothiazide (6) Brain concussion: Qualifiers: Encounter type: subsequent encounter Loss of consciousness presence/duration: unknown LOC status Qualified Code(s): S06.0XAD - Concussion with loss of consciousness status unknown, subsequent encounter Code(s): S06.0XAA - Concussion with loss of consciousness status unknown, initial encounter Status: Acute Assessment and Plan: 07/11/24: * likely due to fall with head injury * head CT did not show any acute abnormality (7) BPH associated with nocturia: Code(s): N40.1 - Benign prostatic hyperplasia with lower urinary tract symptoms; R35.1 - Nocturia Status: Acute Assessment and Plan: 07/11/24: * continue tamsulosin (8) Atrial fibrillation: Code(s): I48.91 - Unspecified atrial fibrillation Status: Acute Assessment and Plan: 07/11/24: * continue Xarelto Subjective Date/time seen: 07/11/24 10:28 Interval history: Interval history: This is an 84 year old male who presented to the hospital for evaluation after syncopal episode. Work up in the hospital included a Head CT which showed old in farct involving the right frontal lobe and right insula. Chest x-ray that was negative. Lumbar spine x-ray which showed mild lumbar spondylosis diffuse idiopathic skeletal hyperostosis. lumbar spine CT shown dish with nondisplaced fracture through the endplate of T12 through L1, moderate lumbar spondylosis. Initial labs showed a normal white blood cell count of 8.1, hemoglobin 12.0, platelet count 148, creati
--- NOTE | 2024-07-11 10:28 | PM.IMPN ---
Progress Note: A&P Assessment and Plan (1) Syncope: Qualifiers: Syncope type: unspecified Qualified Code(s): R55 - Syncope and collapse Code(s): R55 - Syncope and collapse Status: Acute Assessment and Plan: 07/11/24: sustained a ground level fall while at [employer], thought to be a syncopal episode orthostatic blood pressures ordered Q shift cardiology consulted Bystolic held per cardiology recommendation echo ordered with bubble study neurology consulted EEG ordered MRI of brain and brainstem ordered without contrast CTA of brain and carotids ordered (2) Bradycardia: Code(s): R00.1 - Bradycardia, unspecified Status: Acute Assessment and Plan: 07/11/24: EKG showing sinus bradycardia with first-degree AV block a rate of 52, QTC 407 Bystolic held per cardiology recommendation cardiology consulted for additional syncope workup (3) Hematoma of right parietal scalp: Qualifiers: Encounter type: initial encounter Qualified Code(s): S00.03XA - Contusion of scalp, initial encounter Code(s): S00.03XA - Contusion of scalp, initial encounter Status: Acute Assessment and Plan: 07/11/24: likely due to fall head CT was negative for any acute intracranial process, 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 (4) Lumbar back pain: Code(s): M54.50 - Low back pain, unspecified Status: Acute Assessment and Plan: 07/11/24: lumbar spine x-ray showed mild lumbar spondylosis and DISH lumbar spine CT shown dish with nondisplaced fracture through the endplate osteophytes at T12-L1, moderate lumbar spondylosis neurosurgery consulted continue pain control (5) Essential hypertension: Code(s): I10 - Essential (primary) hypertension Status: Acute Assessment and Plan: 07/11/24: blood pressure ranging continue lisinopril and hydrochlorothiazide (6) Brain concussion: Qualifiers: Encounter type: subsequent encounter Loss of consciousness presence/duration: unknown LOC status Qualified Code(s): S06.0XAD - Concussion with loss of consciousness status unknown, subsequent encounter Code(s): S06.0XAA - Concussion with loss of consciousness status unknown, initial encounter Status: Acute Assessment and Plan: 07/11/24: likely due to fall with head injury head CT did not show any acute abnormality (7) BPH associated with nocturia: Code(s): N40.1 - Benign prostatic hyperplasia with lower urinary tract symptoms; R35.1 - Nocturia Status: Acute Assessment and Plan: 07/11/24: continue tamsulosin (8) Atrial fibrillation: Code(s): I48.91 - Unspecified atrial fibrillation Status: Acute Assessment and Plan: 07/11/24: continue Xarelto Subjective Date/time seen: 07/11/24 10:28 Interval history: Interval history: This is an 84 year old male who presented to the hospital for evaluation after syncopal episode. 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 Chest x-ray that was negative. Lumbar spine x-ray which showed mild lumbar spondylosis diffuse idiopathic skeletal hyperostosis. lumbar spine CT shown dish with nondisplaced fracture through the endplate of T12 through L1, moderate lumbar spondylosis. Initial labs showed a normal white blood cell count of 8.1, hemoglobin 12.0, platelet count 148, creatinine 1.5, EGFR 44, troponin negative x3, TSH 1.910. Initial EKG shown sinus bradycardia with first-degree AV block with a rate of 52, QTC 407. Patient was given pain medication while in the ED. cardiology was also consulted for the syncope. Orthostatic blood pressures did not show a drop in blood pressure or heart rate going from a supine to sitting and sitting to standing position. His Bystolic was held as the possible culprit
--- NOTE | 2024-07-11 11:55 | PC.NURSE ---
Dr. Reyes from Neurosurgery called after consult, and reports his is not working in [place] today, he spoke with Dr. Tim who will see patient
[2024-07-11] MEDS: HYDROcodone/acetaminophen (*CRX) 10-325 MG TABLET 1 TAB PO ×2 (18:07→22:19)
[2024-07-11] MEDS: SODIUM CHLORIDE 0.9% IV 1,000 ML 100 ML IV CONT (22:19)
[2024-07-12] VITALS (11 sets, daily range): BP systolic 95–124; BP diastolic 51–62; PULSE 51–90; RESP 16–20; TEMP 36.6–36.8; O2SAT 96–100
--- NOTE | 2024-07-12 | ECHO_ITS ---
Patient Info Name: Gera Cruz Age: 84 years : 1940 Gender: Male Ht: 70 in Wt: 182 lbs BSA: 2.03 m2 HR: 51 bpm BP: 121 / 59 mmHg Technical Quality: Fair Exam Date: 07/12/2024 1:50 PM Exam Location: Echo Lab Patient Status: Inpatient Admit Date: 07/11/2024 Staff Ordering Physician: Nya King APRN Special Education Teaching Assistant: Saad Sanders RDCS Attending Provider: Gabriel Rosas MD Referring Physician: Fernando POPE; Exam Type: CA echo doppler w bubble study Study Info Indications R55 - Syncope and collapse Complete two-dimensional, color flow and Doppler transthoracic echocardiogram is performed with agitated saline. Contrast/Agitated Saline Contrast/Ag. Saline: Agitated Saline Amount: 14.00 ml Existing IV Access: Yes IV Access Condition: patent with no signs of infiltration Summary 1. Left ventricular chamber dimension is normal. 2. Left ventricular systolic function is normal, estimated at 60-65%. 3. There is mildly increased left ventricular wall thickness. 4. Right ventricular systolic function is normal. 5. Left atrial chamber dimension is severely enlarged. 6. Right atrial chamber dimension is severely enlarged. 7. Intact interatrial septum visualized by color flow and agitated saline imaging. Negative bubble study. 8. There is mild aortic valve regurgitation. 9. There is mild to moderate mitral valve regurgitation. 10. There is mild tricuspid valve regurgitation. Left Ventricle Left ventricular chamber dimension is normal. Left ventricular systolic function is normal, estimated at 60-65%. There is mildly increased left ventricular wall thickness. The left ventricular diastolic function is abnormal. Right Ventricle Right ventricular chamber dimension is normal. Right ventricular systolic function is normal. Left Atria Left atrial chamber dimension is severely enlarged. Right Atria Right atrial chamber dimension is severely enlarged. Atrial Septum Intact interatrial septum visualized by color flow and agitated saline imaging. Negative bubble study. Aortic Valve The aortic valve is probable trileaflet. There is no aortic valve stenosis. There is mild aortic valve regurgitation. There is moderate aortic valve calcification. Pulmonic Valve The pulmonic valve is not well visualized. There is no pulmonic regurgitation. Mitral Valve There is mild to moderate mitral valve regurgitation. The mitral valve annulus is mildly calcified. Tricuspid Valve There is mild tricuspid valve regurgitation. Pericardium/Pleural There is no pericardial effusion. Inferior Vena Cava Inferior vena cava is not well visualized. Aorta The aortic root size at the sinus of Valsalva is normal. Left Ventricular Outflow Tract Name Value Normal LVOT 2D LVOT Diameter 2.0 cm LVOT Doppler LVOT Peak Gradient 4 mmHg LVOT Mean Gradient 2 mmHg LVOT VTI 20 cm LVOT VTI/AV VTI Ratio 0.7 LVOT Stroke Volume 60 ml LVOT CO 4.5 l/min LVOT CI
[2024-07-12] MEDS: HYDROcodone/acetaminophen (*CRX) 10-325 MG TABLET 1 TAB PO ×2 (05:03→17:24)
[2024-07-12 05:13] LABS: Basophils Absolute Auto 0.1 K/mm3 (0.0-0.1); Basophils Percent Auto 0.5 % (0.2-1.2); Eosinophils Absolute Auto 0.1 K/mm3 (0-0.3); Eosinophils Percent Auto 0.7 % (0-4.4); Hematocrit 38.4 % (42.0-52.0); Hemoglobin 11.9 g/dL (14.0-18.0); Immature Granulocyte Absolute 0.04 K/mm3 (0.00-0.031); Immature Granulocyte Percent A 0.4 % (0-0.5); Lymphocytes Absolute Auto 1.93 K/mm3 (0.9-3.2); Lymphocytes Percent Auto 17.6 % (18.3-44.2); Mean Corpuscular Hemoglobin 30.7 pg (26-34); Mean Platelet Volume 10.8 fl (7.4-10.4); Monocytes Absolute Auto 0.6 K/mm3 (0.1-0.6); Monocytes Percent Auto 5.6 % (2.6-8.5); Neutrophils Absolute Auto 8.3 K/mm3 (1.3-6.7); Neutrophils Percent Auto 75.2 % (45.5-73.1); Platelet Count Result 163 k/mm3 (150-375); Red Blood Count 3.88 M/mm3 (4.6-6.20); Red Cell Distribution Width 13.2 % (11.5-14.5)
[2024-07-12 05:31] LABS: Alanine Aminotransferase 15 U/L (6-50); Albumin Level 4.1 g/dL (3.5-5.1); Alkaline Phosphatase 60 U/L (38-126); Anion Gap 8 mmol/L (4-12); Aspartate Amino Transferase 30 U/L (17-59); Bilirubin,Total 0.7 mg/dL (0.2-1.3); Blood Urea Nitrogen 46 mg/dL (9-20); Calcium 9.9 mg/dL (8.4-10.2); Carbon Dioxide 30 mmol/L (22-30); Chloride 100 mmol/L (98-107); Estimated CRCL calculation 27 ml/min; Estimated Glomerular Filt Rate 34; Glucose 134 mg/dL (65-110); Potassium 3.9 mmol/L (3.4-5.0); Sodium 138 mmol/L (137-145)
--- NOTE | 2024-07-12 07:18 | P.PNIM_ITS ---
Progress Note: A&P Assessment and Plan (1) Syncope: Qualifiers: Syncope type: unspecified Qualified Code(s): R55 - Syncope and collapse Code(s): R55 - Syncope and collapse Status: Acute Assessment and Plan: 07/11/24: * sustained a ground level fall while at [employer], thought to be a syncopal episode * orthostatic blood pressures ordered Q shift * cardiology consulted * Bystolic held per cardiology recommendation * echo ordered with bubble study * neurology consulted * EEG ordered * MRI of brain and brainstem ordered without contrast * CTA of brain and carotids ordered 07/12/24: * CTA of the brain and carotids only shown 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 * MRI was negative for any acute findings * EEG today * Echo ordered (2) Bradycardia: Code(s): R00.1 - Bradycardia, unspecified Status: Acute Assessment and Plan: 07/11/24: * EKG showing sinus bradycardia with first-degree AV block a rate of 52, QTC 407 * Bystolic held per cardiology recommendation * cardiology consulted for additional syncope workup 07/12/24: * No change to current treatment (3) Hematoma of right parietal scalp: Qualifiers: Encounter type: initial encounter Qualified Code(s): S00.03XA - Contusion of scalp, initial encounter Code(s): S00.03XA - Contusion of scalp, initial encounter Status: Acute Assessment and Plan: 07/11/24: * likely due to fall * head CT was negative for any acute intracranial process, 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 07/12/24: * continue neuro checks (4) Lumbar back pain: Code(s): M54.50 - Low back pain, unspecified Status: Acute Assessment and Plan: 07/11/24: * lumbar spine x-ray showed mild lumbar spondylosis and DISH * lumbar spine CT shown dish with nondisplaced fracture through the endplate osteophytes at T12-L1, moderate lumbar spondylosis * neurosurgery consulted * continue pain control 07/12/24: * No change to current treatment plan (5) Essential hypertension: Code(s): I10 - Essential (primary) hypertension Status: Acute Assessment and Plan: 07/11/24: * continue lisinopril and hydrochlorothiazide 07/12/24: * Blood pressure ranging 121/59-123/59 * No change to current treatment (6) Brain concussion: Qualifiers: Encounter type: subsequent encounter Loss of consciousness presence/duration: unknown LOC status Qualified Code(s): S06.0XAD - Concussion with loss of consciousness status unknown, subsequent encounter Code(s): S06.0XAA - Concussion with loss of consciousness status unknown, initial encounter Status: Acute Assessment and Plan: 07/11/24: * likely due to fall with head injury * head CT did not show any acute abnormality 07/12/24: * Continue neuro checks (7) BPH associated with nocturia: Code(s): N40.1 - Benign prostatic hyperplasia with lower urinary tract symptoms; R35.1 - Nocturia Status: Acute Assessment and Plan: 07/11/24: * continue tamsulosin 07/12/24: * No change to current treatment plan (8) Atrial fibrillation: Code(s): I48.91 - Unspecified atrial fibrillation Status: Acute Assessment and Plan: 07/11/24: * continue Xarelto 07/12/24:
--- NOTE | 2024-07-12 07:18 | PM.IMPN ---
Progress Note: A&P Assessment and Plan (1) Syncope: Qualifiers: Syncope type: unspecified Qualified Code(s): R55 - Syncope and collapse Code(s): R55 - Syncope and collapse Status: Acute Assessment and Plan: 07/11/24: sustained a ground level fall while at [employer], thought to be a syncopal episode orthostatic blood pressures ordered Q shift cardiology consulted Bystolic held per cardiology recommendation echo ordered with bubble study neurology consulted EEG ordered MRI of brain and brainstem ordered without contrast CTA of brain and carotids ordered 07/12/24: CTA of the brain and carotids only shown 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 MRI was negative for any acute findings EEG today Echo ordered (2) Bradycardia: Code(s): R00.1 - Bradycardia, unspecified Status: Acute Assessment and Plan: 07/11/24: EKG showing sinus bradycardia with first-degree AV block a rate of 52, QTC 407 Bystolic held per cardiology recommendation cardiology consulted for additional syncope workup 07/12/24: No change to current treatment (3) Hematoma of right parietal scalp: Qualifiers: Encounter type: initial encounter Qualified Code(s): S00.03XA - Contusion of scalp, initial encounter Code(s): S00.03XA - Contusion of scalp, initial encounter Status: Acute Assessment and Plan: 07/11/24: likely due to fall head CT was negative for any acute intracranial process, 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 07/12/24: continue neuro checks (4) Lumbar back pain: Code(s): M54.50 - Low back pain, unspecified Status: Acute Assessment and Plan: 07/11/24: lumbar spine x-ray showed mild lumbar spondylosis and DISH lumbar spine CT shown dish with nondisplaced fracture through the endplate osteophytes at T12-L1, moderate lumbar spondylosis neurosurgery consulted continue pain control 07/12/24: No change to current treatment plan (5) Essential hypertension: Code(s): I10 - Essential (primary) hypertension Status: Acute Assessment and Plan: 07/11/24: continue lisinopril and hydrochlorothiazide 07/12/24: Blood pressure ranging 121/59-123/59 No change to current treatment (6) Brain concussion: Qualifiers: Encounter type: subsequent encounter Loss of consciousness presence/duration: unknown LOC status Qualified Code(s): S06.0XAD - Concussion with loss of consciousness status unknown, subsequent encounter Code(s): S06.0XAA - Concussion with loss of consciousness status unknown, initial encounter Status: Acute Assessment and Plan: 07/11/24: likely due to fall with head injury head CT did not show any acute abnormality 07/12/24: Continue neuro checks (7) BPH associated with nocturia: Code(s): N40.1 - Benign prostatic hyperplasia with lower urinary tract symptoms; R35.1 - Nocturia Status: Acute Assessment and Plan: 07/11/24: continue tamsulosin 07/12/24: No change to current treatment plan (8) Atrial fibrillation: Code(s): I48.91 - Unspecified atrial fibrillation Status: Acute Assessment and Plan: 07/11/24: continue Xarelto 07/12/24: No change to current treatment plan Time Spent With Patient Time with patient: Greater than 35 minutes Subjective Date/time seen: 07/12/24 07:18 Interval history: Interval history: This is an 84 year old male who presented to the hospital for evaluation after syncopal episode. 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 Chest x-ray that was negative. Lumbar spine x-ray which showed mild lumbar spondylosis diffus
[2024-07-12] MEDS: SIMVASTATIN 20 MG TABLET 40 MG PO (08:26)
[2024-07-12] MEDS: RIVAROXABAN 20 MG TABLET PO (08:26)
[2024-07-12] MEDS: allopurinoL 300 MG TABLET PO (08:26)
[2024-07-12] MEDS: TAMSULOSIN HCL 0.4 MG CAPSULE PO (08:26)
--- NOTE | 2024-07-12 11:25 | PM.PNCARD ---
Progress Note: A&P Assessment and Plan (1) Syncope: Qualifiers: Syncope type: unspecified Qualified Code(s): R55 - Syncope and collapse Code(s): R55 - Syncope and collapse Status: Acute Assessment and Plan: Etiology is unclear at this point. Possibly related to arrhythmia/bradycardia, but no significant bradycardia, pauses, or high degree AVB that would explain syncope. Hold Bystolic and continue to monitor on telemtry. Outpatient classroom monitor for ongoing assessment upon discharge. Echocardiogram ordered and pending. Neurology consultation pending as well. (2) Bradycardia: Code(s): R00.1 - Bradycardia, unspecified Status: Acute Assessment and Plan: He has sinus bradycardia with first degree AV block as well as intermittent second degree AV block Type 1. No significant bradycardia or pauses. Hold Bystolic. (3) Atrial fibrillation: Code(s): I48.91 - Unspecified atrial fibrillation Status: Acute Assessment and Plan: Continue Xarelto. Holding Bystolic due to above. 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 (5) Hyperlipidemia: Code(s): E78.5 - Hyperlipidemia, unspecified Status: Acute Assessment and Plan: Continue Simvastatin. Plan Recommendations and plan discussed with Hospitalist. Subjective Date/time seen: 07/12/24 11:25 Interval history: Reason for visit: Syncope HPI: Gera Cruz is an 84 year old male with atrial fibrillation, hypertension, and hyperlipidemia who enters the hospital following a syncopal episode. The patient was walking around [employer] yesterday when his reported she looked back and saw him fall backwards and lose consciousness. The patient does not recall this event but reports he felt well prior to this event and denies feeling any chest pain, palpitations, shortness of breath, dizziness. He denies any past syncopal events. He was noted to be bradycardic in the emergency department which prompted cardiology consultation. At the time of my evaluation he is lying comfortably in bed and has a complaint of back pain which is chronic but worsened by his fall yesterday. No other active complaints at this time. Date of service 07/12: Feeling well, he denies any complaints at the time of my evaluation. Review of Systems Review of Systems: All systems reviewed & are unremarkable except as noted in HPI and below (HPI) Exam Const: General: comfortable and no acute distress Eyes: General: appearance normal, both eyes and all related structures Sclera: sclerae normal Resp: Effort & Inspection: normal respiratory effort Cardio: Rate: regular rate Rhythm: regular rhythm Skin: General skin exam: normal color Neuro: Speech: normal speech Psych: Mental Status: mental status grossly normal Affect: normal affect Objective Data Vital Signs Vital Signs: Vital Signs - 24 hr 07/11/24 12:00 07/11/24 14:00 07/11/24 16:00 Temperature 37.1 C Pulse Rate 69 68 55 L Respiratory Rate 16 Blood Pressure 107/52 L Pulse Oximetry 98 Oxygen Delivery 07/11/24 19:59 07/11/24 20:14 07/11/24 20:00 Temperature 36.8 C Pulse Rate 67 Respiratory Rate 16 Blood Pressure 122/78 122/78 Pulse Oximetry 98 Oxygen Delivery Room Air 07/11/24 20:15 07/11/24 20:15 07/11/24 20:00 Temperature Pulse Rate 70 Respiratory Rate Blood Pressure 123/59 L 121/59 L Pulse Oximetry Oxygen Delivery 07/12/24 00:00 07/12/24 04:00 07/12/24 09:36 Temperature Pulse Rate 64 51 L Respiratory Rate Blood Pressure Pulse Oximetry 96 Oxygen Delivery Room Air 07/12/24 08:25 Temperature Pulse Rate Respiratory Rate Blood Pressure Pulse Oximetry Oxygen Delivery Room Air Intake/Output Intake/Output: Intake & Output 07/09/24
[2024-07-12] MEDS: SODIUM CHLORIDE 0.9% IV 1,000 ML 100 ML IV CONT ×2 (11:53→22:30)
--- NOTE | 2024-07-12 18:14 | WPDNEUROSGCN ---
Assessment and Plan Assessment and plan (1) Diffuse idiopathic skeletal hyperostosis: Code(s): M48.10 - Ankylosing hyperostosis [[place]], site unspecified Status: Acute Plan Mr. Cruz is an 84-year-old male with history of AFib on Xarelto who had a syncopal episode 2 days ago who was found to have a bridging osteophyte fracture at T12-L1 in the setting of dish. He does have some diffuse pain from the back of his head into his lower back but does not have any concerning symptoms in his lower extremities. While my overall suspicion is low that this fracture is problematic, I do think it would be a good idea to get an MRI lumbar spine without contrast to ensure that the fracture does not extend into the disc space or ligamentous structures that would make this unstable. The patient is amenable to this. I will place the order for the MRI. Consult date: 07/12/24 HPI: Gera Cruz is a 84 year old male With history of atrial fibrillation on Xarelto presented to the emergency room 2 days ago after having a syncopal episode at [facility]. He states that he was going to find his and suddenly fell backwards and passed out. He does not recall feeling unwell prior to this incident. Since the fall, he has had pain in the back of the head leading down the back into the lower back. He denies any radicular pain or paresthesias into the legs. He denies any bowel or bladder changes. Neurosurgery was consulted because of a bridging osteophyte fracture at T12-L1. 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 Patient denies any known history of CVA or symptoms. Essential hypertension Paroxysmal atrial fibrillation Presbycusis of both ears With bilateral hearing aids Surgical History Surgical History History of colonoscopy with polypectomy (2020) Hx of cholecystectomy Status post cataract extraction of both eyes with insertion of intraocular lens Status post open reduction with internal fixation of fracture Right tibia Family History Family History Mother Cerebrovascular accident Social History Social History Social History: The patient lives at home with his of 62 years. They raised 3 daughters. The patient still drives. 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 He is a lifelong nonsmoker and does not drink alcohol. Code status: DNR/DNI (the patient states that if he were in a pre arrest situation with a cardiac arrhythmia he would be okay with external pacing or medications to keep his heart rate up however if his heart actually stopped he would not want extraordinary measures with CPR or ventilator support.) Surrogate decision maker: Mary Blank () Smoking status: Never smoker Alcohol intake: never Substance use: never Do You Feel Safe in your Home?: Yes Lack of Transportation: No Lack of Food: Never True Current Housing: I Have Housing Concerned About Future Housing: No Difficulty Paying Gas/Electric Bills: No Difficulty Paying for Meds: No Currently Unemployed: No Education: Bachelor's Degree Difficulty w/ Childcare or Family Care: No Living arrangements: with family Gender identity (if verbalized by the patient): Male Spiritual care concerns: No Meds Home Medications and Allergies Home Medications Medication Instructions Recorded Confirmed Type Adult One Daily Multivitamin 1 tablet PO DAILY 12/13/20 07/10/24 History nebivolol 10 mg
[2024-07-13] VITALS (11 sets, daily range): BP systolic 104–136; BP diastolic 41–70; PULSE 61–84; RESP 16–18; TEMP 36.1–36.8; O2SAT 98–100
[2024-07-13 05:35] LABS: Basophils Absolute Auto 0.1 K/mm3 (0.0-0.1); Basophils Percent Auto 0.6 % (0.2-1.2); Eosinophils Absolute Auto 0.1 K/mm3 (0-0.3); Eosinophils Percent Auto 1.4 % (0-4.4); Hematocrit 33.7 % (42.0-52.0); Hemoglobin 10.7 g/dL (14.0-18.0); Immature Granulocyte Absolute 0.04 K/mm3 (0.00-0.031); Immature Granulocyte Percent A 0.5 % (0-0.5); Immature Platelet Fraction Pct 5.8 % (0.9-11.2); Lymphocytes Absolute Auto 1.93 K/mm3 (0.9-3.2); Lymphocytes Percent Auto 23.1 % (18.3-44.2); Mean Corpuscular HGB Conc 31.8 g/dl (32-36); Mean Corpuscular Hemoglobin 31.5 pg (26-34); Mean Corpuscular Volume 99.1 fl (80-100); Mean Platelet Volume 11.2 fl (7.4-10.4); Monocytes Absolute Auto 0.6 K/mm3 (0.1-0.6); Monocytes Percent Auto 7.4 % (2.6-8.5); Neutrophils Absolute Auto 5.6 K/mm3 (1.3-6.7); Platelet Count Result 128 k/mm3 (150-375); White Blood Count 8.4 K/mm3 (4.5-10.0)
[2024-07-13 05:41] LABS: Alanine Aminotransferase 13 U/L (6-50); Albumin Level 3.2 g/dL (3.5-5.1); Alkaline Phosphatase 58 U/L (38-126); Anion Gap 4 mmol/L (4-12); Aspartate Amino Transferase 26 U/L (17-59); Bilirubin,Total 0.7 mg/dL (0.2-1.3); Blood Urea Nitrogen 41 mg/dL (9-20); Carbon Dioxide 29 mmol/L (22-30); Chloride 105 mmol/L (98-107); Estimated CRCL calculation 27 ml/min; Estimated Glomerular Filt Rate 34; Glucose 102 mg/dL (65-110); Potassium 3.8 mmol/L (3.4-5.0); Sodium 138 mmol/L (137-145)
--- NOTE | 2024-07-13 07:43 | P.PNIM_ITS ---
Progress Note: A&P Assessment and Plan (1) Syncope: Qualifiers: Syncope type: unspecified Qualified Code(s): R55 - Syncope and collapse Code(s): R55 - Syncope and collapse Status: Acute Assessment and Plan: 07/11/24: * sustained a ground level fall while at [employer], thought to be a syncopal episode * orthostatic blood pressures ordered Q shift * cardiology consulted * Bystolic held per cardiology recommendation * echo ordered with bubble study * neurology consulted * EEG ordered * MRI of brain and brainstem ordered without contrast * CTA of brain and carotids ordered 07/12/24: * CTA of the brain and carotids only shown 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 * MRI was negative for any acute findings * EEG today * Echo ordered 07/13/24: * Echo revealed normal LV systolic function with an estimated EF of 60-65%, normal RV systolic function, negative bubble study, left and right atrial enlargement * EEG completed and showing abnormal EEG due to mild diffuse background slowing suggestive of generalized encephalopathy, no focal or paroxysmal abnormality was seen. * Neurology consulted and will await recommendations (2) Bradycardia: Code(s): R00.1 - Bradycardia, unspecified Status: Acute Assessment and Plan: 07/11/24: * EKG showing sinus bradycardia with first-degree AV block a rate of 52, QTC 407 * Bystolic held per cardiology recommendation * cardiology consulted for additional syncope workup 07/12/24: * No change to current treatment (3) Hematoma of right parietal scalp: Qualifiers: Encounter type: initial encounter Qualified Code(s): S00.03XA - Contusion of scalp, initial encounter Code(s): S00.03XA - Contusion of scalp, initial encounter Status: Acute Assessment and Plan: 07/11/24: * likely due to fall * head CT was negative for any acute intracranial process, 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 07/12/24: * continue neuro checks 07/13/24: * No change to current treatment plan (4) Lumbar back pain: Code(s): M54.50 - Low back pain, unspecified Status: Acute Assessment and Plan: 07/11/24: * lumbar spine x-ray showed mild lumbar spondylosis and DISH * lumbar spine CT shown dish with nondisplaced fracture through the endplate osteophytes at T12-L1, moderate lumbar spondylosis * neurosurgery consulted * continue pain control 07/12/24: * No change to current treatment plan 07/13/24: * Neurosurgery following * MRI of Lumbar spine showed diffuse disc bulge and severe facet arthropathy, resulting in severe spinal canal stenosis/thecal sac compression, there is severe left neural foraminal narrowing and moderate right neural foraminal narrowing at L4-L5 * Will await Neurosurgery recommendation post MRI * Continue pain control * PT and OT suggesting SNF for further progression of his mobility (5) Essential hypertension: Code(s): I10 - Essential (primary) hypertension Status: Acute Assessment and Plan: 07/11/24: * continue lisinopril and hydrochlorothiazide 07/12/24: * Blood pressure ranging 121/59-123/59 * No change to current treatment (6) Brain concussion: Qualifiers: Encounter type: subsequent encounter Loss of consciousness presence/duration: unknown LOC sta
--- NOTE | 2024-07-13 07:43 | PM.IMPN ---
Progress Note: A&P Assessment and Plan (1) Syncope: Qualifiers: Syncope type: unspecified Qualified Code(s): R55 - Syncope and collapse Code(s): R55 - Syncope and collapse Status: Acute Assessment and Plan: 07/11/24: sustained a ground level fall while at [employer], thought to be a syncopal episode orthostatic blood pressures ordered Q shift cardiology consulted Bystolic held per cardiology recommendation echo ordered with bubble study neurology consulted EEG ordered MRI of brain and brainstem ordered without contrast CTA of brain and carotids ordered 07/12/24: CTA of the brain and carotids only shown 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 MRI was negative for any acute findings EEG today Echo ordered 07/13/24: Echo revealed normal LV systolic function with an estimated EF of 60-65%, normal RV systolic function, negative bubble study, left and right atrial enlargement EEG completed and showing abnormal EEG due to mild diffuse background slowing suggestive of generalized encephalopathy, no focal or paroxysmal abnormality was seen. Neurology consulted and will await recommendations (2) Bradycardia: Code(s): R00.1 - Bradycardia, unspecified Status: Acute Assessment and Plan: 07/11/24: EKG showing sinus bradycardia with first-degree AV block a rate of 52, QTC 407 Bystolic held per cardiology recommendation cardiology consulted for additional syncope workup 07/12/24: No change to current treatment (3) Hematoma of right parietal scalp: Qualifiers: Encounter type: initial encounter Qualified Code(s): S00.03XA - Contusion of scalp, initial encounter Code(s): S00.03XA - Contusion of scalp, initial encounter Status: Acute Assessment and Plan: 07/11/24: likely due to fall head CT was negative for any acute intracranial process, 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 07/12/24: continue neuro checks 07/13/24: No change to current treatment plan (4) Lumbar back pain: Code(s): M54.50 - Low back pain, unspecified Status: Acute Assessment and Plan: 07/11/24: lumbar spine x-ray showed mild lumbar spondylosis and DISH lumbar spine CT shown dish with nondisplaced fracture through the endplate osteophytes at T12-L1, moderate lumbar spondylosis neurosurgery consulted continue pain control 07/12/24: No change to current treatment plan 07/13/24: Neurosurgery following MRI of Lumbar spine showed diffuse disc bulge and severe facet arthropathy, resulting in severe spinal canal stenosis/thecal sac compression, there is severe left neural foraminal narrowing and moderate right neural foraminal narrowing at L4-L5 Will await Neurosurgery recommendation post MRI Continue pain control PT and OT suggesting SNF for further progression of his mobility (5) Essential hypertension: Code(s): I10 - Essential (primary) hypertension Status: Acute Assessment and Plan: 07/11/24: continue lisinopril and hydrochlorothiazide 07/12/24: Blood pressure ranging 121/59-123/59 No change to current treatment (6) Brain concussion: Qualifiers: Encounter type: subsequent encounter Loss of consciousness presence/duration: unknown LOC status Qualified Code(s): S06.0XAD - Concussion with loss of consciousness status unknown, subsequent encounter Code(s): S06.0XAA - Concussion with loss of consciousness status unknown, initial encounter Status: Acute Assessment and Plan: 07/11/24: likely due to fall with head injury head CT did not show any acute abnormality 07/12/24: Continue neuro checks 07/13/24: No change to current treatment plan (7) BPH associated with nocturia:
[2024-07-13] MEDS: allopurinoL 300 MG TABLET PO (09:13)
[2024-07-13] MEDS: SIMVASTATIN 20 MG TABLET 40 MG PO (09:13)
[2024-07-13] MEDS: TAMSULOSIN HCL 0.4 MG CAPSULE PO (09:13)
[2024-07-13] MEDS: RIVAROXABAN 20 MG TABLET PO (09:13)
[2024-07-13] MEDS: HYDROcodone/acetaminophen (*CRX) 10-325 MG TABLET 1 TAB PO (09:17)
--- NOTE | 2024-07-13 12:33 | WPDNEUROLOGY ---
Neurology EEG Report General Information Date of Study: 07/12/24 TEST Electroencephalogram DIAGNOSIS dizziness and loss of consciousness CONDITION OF RECORDING bedside according EEG NUMBER [id number] CLINICAL HISTORY patient was at a store when he suddenly became dizzy and passed out EEG DESCRIPTION During wakefulness the background activity consists of predominant theta activity at 7 hertz with an amplitude of 15-30 microvolts. This appears poorly organized. There is no significant anteroposterior gradient. Hyperventilation or photic stimulation were not performed. Patient did not progress to stage 2 sleep. IMPRESSION This is an abnormal EEG due to mild diffuse background slowing suggestive of generalized encephalopathy. No focal or paroxysmal abnormality was seen.
--- NOTE | 2024-07-13 13:37 | PM.PNCARD ---
Progress Note: A&P Assessment and Plan (1) Syncope: Qualifiers: Syncope type: unspecified Qualified Code(s): R55 - Syncope and collapse Code(s): R55 - Syncope and collapse Status: Acute Assessment and Plan: Etiology is unclear at this point. Possibly related to arrhythmia/bradycardia, but no significant bradycardia, pauses, or high degree AVB that would explain syncope. Hold Bystolic and continue to monitor on telemtry. 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 Echocardiogram reviewed - Normal LVEF, mild AI, mild ME, mild TR, negative bubble study. OK for discharge from a cardiac standpoint. Cardiology will sign off. Please call with questions. (2) Bradycardia: Code(s): R00.1 - Bradycardia, unspecified Status: Acute Assessment and Plan: He has sinus bradycardia with first degree AV block as well as intermittent second degree AV block Type 1. No significant bradycardia or pauses. Hold Bystolic. (3) Atrial fibrillation: Code(s): I48.91 - Unspecified atrial fibrillation Status: Acute Assessment and Plan: Continue Xarelto. Holding Bystolic due to above. (4) Chronic anticoagulation: Code(s): Z79.01 - long-term (current) use of anticoagulants Status: Acute Assessment and Plan: Continue Xarelto. (5) Hyperlipidemia: Code(s): E78.5 - Hyperlipidemia, unspecified Status: Acute Assessment and Plan: Continue Simvastatin. Plan Recommendations and plan discussed with Hospitalist. Subjective Date/time seen: 07/13/24 13:37 Interval history: Reason for visit: Syncope HPI: Gera Cruz is an 84 year old male with atrial fibrillation, hypertension, and hyperlipidemia who enters the hospital following a syncopal episode. The patient was walking around [place] yesterday when his reported she looked back and saw him fall backwards and lose consciousness. The patient does not recall this event but reports he felt well prior to this event and denies feeling any chest pain, palpitations, shortness of breath, dizziness. He denies any past syncopal events. He was noted to be bradycardic in the emergency department which prompted cardiology consultation. At the time of my evaluation he is lying comfortably in bed and has a complaint of back pain which is chronic but worsened by his fall yesterday. No other active complaints at this time. Date of service 07/12: Feeling well, he denies any complaints at the time of my evaluation. Date of service 07/13/2024: Continues to feel well. Wants to go home. Review of Systems Review of Systems: All systems reviewed & are unremarkable except as noted in HPI and below (HPI) Exam Const: General: comfortable, no acute distress, alert and awake Orientation/consciousness: patient oriented x3 HENMT: Head: normal to inspection Eyes: General: appearance normal, both eyes and all related structures Sclera: sclerae normal Pupils: Equal, round and reactive pupils present Neck: Neck: normal visual inspection, supple and no JVD Carotids: normal carotid upstroke Resp: Effort & Inspection: normal respiratory effort Auscultation: clear to auscultation bilaterally Cardio: Rate: regular rate Rhythm: regular rhythm and abnormal rhythm with ectopic beats Heart sounds: S1 normal heart sound present, S2 normal heart sound present and no murmurs GI: Auscultation: normal bowel sounds Skin: General skin exam: normal color Neuro: General: patient oriented x3 Cranial nerves: Yes Equal, round and reactive pupils present Speech: normal speech Extrem: General: normal to inspection Other: no edema Psych: Appearance: grossly normal Mental Status: mental status grossly normal Affect: normal affect Objective Data Vital Signs Vital Signs: Vital Signs - 24 hr 07/12/24 14:00 07/12/24 16:00 07/12/24 19:53 Temperature 36.8 C 36.8 C Pulse Rate 64
[2024-07-13] MEDS: SODIUM CHLORIDE 0.9% IV 1,000 ML 100 ML IV CONT (14:15)
[2024-07-13] MEDS: levETIRAcetam 1000MG/NACL100ML 1,000 MG/100 ML BAG 400 MG IVPB (16:23)
--- NOTE | 2024-07-13 16:51 | WPDNEUROSGPN ---
Progress Note: A&P Assessment and Plan (1) Diffuse idiopathic skeletal hyperostosis: Code(s): M48.10 - Ankylosing hyperostosis [[place]], site unspecified Status: Acute Plan I reviewed his MRI lumbar spine. I do not see any disruption of the disc space or other finding suggestive of instability at the T12-L1 level. I do not recommend any further workup or treatment. He does not need any follow up with me for this issue. Subjective Date/time seen: 07/13/24 16:51 Objective Data Vital Signs Vital Signs: Vital Signs - 24 hr 07/12/24 19:53 07/12/24 19:53 07/12/24 19:45 Temperature 98.2 F Pulse Rate 72 72 75 Respiratory Rate 16 16 Blood Pressure 124/62 95/51 L Pulse Oximetry 99 99 Oxygen Delivery Room Air 07/12/24 19:47 07/12/24 19:47 07/12/24 19:50 Temperature 97.8 F Pulse Rate 82 82 60 Respiratory Rate 20 Blood Pressure 113/54 L 113/54 L 109/54 L Pulse Oximetry 100 Oxygen Delivery 07/12/24 20:00 07/13/24 00:00 07/13/24 04:00 Temperature Pulse Rate 90 66 61 Respiratory Rate Blood Pressure Pulse Oximetry Oxygen Delivery 07/13/24 05:40 07/13/24 08:00 07/13/24 08:00 Temperature 97.7 F 98.3 F Pulse Rate 75 72 70 Respiratory Rate 18 16 Blood Pressure 104/41 L 111/56 L Pulse Oximetry 99 98 Oxygen Delivery 07/13/24 12:00 07/13/24 11:45 07/13/24 13:45 Temperature 97.0 F L Pulse Rate 74 67 Respiratory Rate 16 Blood Pressure 108/54 L Pulse Oximetry 100 Oxygen Delivery Room Air Intake/Output Intake/Output: Intake & Output 07/10/24 07/11/24 07/12/24 07/13/24 23:59 23:59 23:59 23:59 Intake Total 680 2750 1450 Output Total 600 200 5 Balance 80 2550 1445 Meds/Results Medications: Active Medications Generic Name Dose Route Start Last Admin Trade Name Freq PRN Reason Stop Dose Admin Acetaminophen 650 mg 07/10/24 18:14 07/10/24 19:13 Acetaminophen 325 Mg Tablet PO 650 mg Q4H PRN Administration Mild Pain (1-3) or Fever Hydrocodone Bitart/Acetaminophen 1 tab 07/10/24 18:14 07/11/24 08:42 Hydrocodone/Acetaminophen (*Crx) 5-325 Mg Tablet PO 1 tab Q4H PRN Administration Pain Rated 4-6 Hydrocodone Bitart/Acetaminophen 1 tab 07/11/24 17:39 07/13/24 09:17 Hydrocodone/Acetaminophen (*Crx) 10-325 Mg Tablet PO 1 tab Q4H PRN Administration Pain Rated 7-10 Allopurinol 300 mg 07/11/24 09:00 07/13/24 09:13 Allopurinol 300 Mg Tablet PO 300 mg DAILY CARLEEN Administration Sodium Chloride 1,000 mls @ 100 mls/hr 07/11/24 21:15 07/13/24 14:15 Normal Saline Iv IV CONT 100 mls/hr .Q10H CARLEEN Administration Levetiracetam 250 mg/ 750 mg 07/13/24 21:00 Levetiracetam 500 mg PO Q12HR CARLEEN Morphine Sulfate 2 mg 07/10/24 19:55 Morphine Sulfate (*Crx) 2 Mg/Ml Inj IV PUSH Q4H PRN Pain Rated 7-10 Ondansetron HCl 4 mg 07/10/24 19:53 Ondansetron Inj 4 Mg/2 Ml Vial IV PUSH Q6H PRN Nausea And Vomiting Perflutren Lipid Microsphere 0 ml 07/10/24 19:56 Perflutren Lipid Microspheres 1.5 Ml Vial Diluted To 10 Ml Total Volume IV PUSH 07/13/24 19:56 ONCE PRN adequate visualization Protocol Perflutren Lipid Microsphere 0 ml 07/11/24 15:48 Perflutren Lipid Microspheres 1.5 Ml Vial Diluted To 10 Ml Total Volume IV PUSH 07/14/24 15:48 ONCE PRN adequate visualization Protocol Rivaroxaban 20 mg 07/11/24 09:00 07/13/24 09:13 Rivaroxaban 20 Mg Tablet PO 20 mg DAILY CARLEEN Administration Simvastatin 40 mg 07/11/24 09:00 07/13/24 09:13 Simvastatin 20 Mg Tablet PO 40 mg DAILY CARLEEN Administration Tamsulosin HCl 0.4 mg 07/11/24 09:00 07/13/24 09:13 Tamsulosin Hcl 0.4 Mg Capsule PO 0.4 mg DAILY CARLEEN Administration Radiology Results: ITS Impressions Head CT 07/10/24 14:57 IMPRESSION: 1. 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 Chest X-Ray 07/10/24 15:05
--- NOTE | 2024-07-13 17:52 | WPDNEURCNPN ---
Assessment and Plan Assessment and plan (1) Syncope: Qualifiers: Syncope type: unspecified Qualified Code(s): R55 - Syncope and collapse Code(s): R55 - Syncope and collapse Status: Acute (2) Atrial fibrillation: Code(s): I48.91 - Unspecified atrial fibrillation Status: Acute Plan There is a scarring in the right frontal area noted on MRI of the brain however there is no prior history of having any stroke or head trauma or seizures. The single spell such as above could be so many things such as cardiogenic or neurologic event. I noted that due to the lack of any other evidence he has also been started on Keppra 750 mg twice a day and given his age and state of the life I am not against it but is very much up to the patient and his family. Sometimes we wait for the patient to have 2 or more spells before we put them on long-term anticonvulsants. The finding on MRI of the brain could be coincidental. EEG did not show any focal abnormalities although mild diffuse background slowing was seen and since the EEG was done on the same day the patient does not appear to have any clear evidence for dementia that may represent postictal slowing however this remains speculative. I will be glad to discuss this further with the family members if they would like. In the meanwhile he can continue with the treatment plan as before. Consult date: 07/13/24 HPI: Gera Cruz is a 84 year old male with history of atrial fibrillation who presented with a single episode of loss of consciousness while he was shopping in a hardware store [place] with his . He does not think he had any warning and he suddenly fell out and hurt his back since he fell backward. He does not think that he had any tongue biting or incontinence of urine. He developed a scalp hematoma in the parietal area and has still has some soreness. It was noted the patient has been on Xarelto. Since admission he has not had any further spells of unresponsiveness. He has had cardiac evaluation and cardiac monitoring has not shown any cardiac arrhythmia so far per his heart rate has been between 70-80 on the floor. He had undergone a CT scan of brain thereafter CT angio of the head and neck and a MRI of the brain her old infarct was noted in the right frontal area no significant vascular disease via defied on the CT angiogram of the head and neck. He denies any problem with the memory but thinks that he may have some loss of memory appropriate for his age. History of chronic prostate hypertrophy. Since the fall he has pain in the lower back. 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 Patient denies any known history of CVA or symptoms. Essential hypertension Paroxysmal atrial fibrillation Presbycusis of both ears With bilateral hearing aids Surgical History Surgical History History of colonoscopy with polypectomy (2020) Hx of cholecystectomy Status post cataract extraction of both eyes with insertion of intraocular lens Status post open reduction with internal fixation of fracture Right tibia Family History Family History Mother Cerebrovascular accident Social History Social History Social History: The patient lives at home with his of 62 years. They raised 3 daughters. The patient still drives. 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 He is a lifelong nonsmoker and does not drink alcohol. Bc
[2024-07-13] MEDS: levETIRAcetam Tablet 250 MG, levETIRAcetam Tablet 500 MG 750 MG PO (20:30)
[2024-07-14] VITALS (7 sets, daily range): BP systolic 91–129; BP diastolic 61–70; PULSE 67–85; RESP 16; TEMP 36.2–36.6; O2SAT 98–100
[2024-07-14] MEDS: SODIUM CHLORIDE 0.9% IV 1,000 ML 100 ML IV CONT ×2 (00:36→10:38)
[2024-07-14 05:12] LABS: Basophils Absolute Auto 0.1 K/mm3 (0.0-0.1); Basophils Percent Auto 0.7 % (0.2-1.2); Eosinophils Absolute Auto 0.2 K/mm3 (0-0.3); Eosinophils Percent Auto 2.2 % (0-4.4); Hematocrit 34.1 % (42.0-52.0); Hemoglobin 10.7 g/dL (14.0-18.0); Immature Granulocyte Absolute 0.04 K/mm3 (0.00-0.031); Immature Granulocyte Percent A 0.5 % (0-0.5); Immature Platelet Fraction Pct 6.5 % (0.9-11.2); Lymphocytes Absolute Auto 2.03 K/mm3 (0.9-3.2); Lymphocytes Percent Auto 27.8 % (18.3-44.2); Mean Corpuscular HGB Conc 31.4 g/dl (32-36); Mean Corpuscular Hemoglobin 30.7 pg (26-34); Mean Platelet Volume 11.3 fl (7.4-10.4); Monocytes Absolute Auto 0.5 K/mm3 (0.1-0.6); Monocytes Percent Auto 6.7 % (2.6-8.5); Neutrophils Absolute Auto 4.5 K/mm3 (1.3-6.7); Neutrophils Percent Auto 62.1 % (45.5-73.1); Platelet Count Result 131 k/mm3 (150-375); Red Blood Count 3.48 M/mm3 (4.6-6.20); Red Cell Distribution Width 12.8 % (11.5-14.5); White Blood Count 7.3 K/mm3 (4.5-10.0)
[2024-07-14 05:30] LABS: Alanine Aminotransferase 13 U/L (6-50); Albumin Level 3.4 g/dL (3.5-5.1); Alkaline Phosphatase 61 U/L (38-126); Anion Gap 5 mmol/L (4-12); Aspartate Amino Transferase 26 U/L (17-59); Bilirubin,Total 0.9 mg/dL (0.2-1.3); Blood Urea Nitrogen 29 mg/dL (9-20); Calcium 8.9 mg/dL (8.4-10.2); Carbon Dioxide 25 mmol/L (22-30); Chloride 108 mmol/L (98-107); Estimated CRCL calculation 38 ml/min; Estimated Glomerular Filt Rate 52; Glucose 97 mg/dL (65-110); Potassium 3.7 mmol/L (3.4-5.0); Sodium 138 mmol/L (137-145)
[2024-07-14] MEDS: TAMSULOSIN HCL 0.4 MG CAPSULE PO (08:24)
[2024-07-14] MEDS: SIMVASTATIN 20 MG TABLET 40 MG PO (08:24)
[2024-07-14] MEDS: allopurinoL 300 MG TABLET PO (08:24)
[2024-07-14] MEDS: levETIRAcetam Tablet 250 MG, levETIRAcetam Tablet 500 MG 750 MG PO (08:25)
[2024-07-14] MEDS: RIVAROXABAN 20 MG TABLET PO (08:25)
[2024-07-14 10:36] LABS: Add Urine Microscopic? NO; Appearance Urine Clear (Clear); Bilirubin Urine Negative (Negative); Blood Urine Negative (Negative); Color Urine Yellow (Yellow); Glucose Urine UA Negative (Negative); Ketones Urine Negative (Negative); Leukocyte Esterase Ur Negative LEU/UL (Negative); Nitrate Urine Negative (Negative); Protein Urine Negative (Negative); Specific Grav Ur 1.017 (1.001-1.035)
--- NOTE | 2024-07-14 15:51 | PM.DS ---
DS: Admitting Diagnosis Discharge Date 07/14/24 Admitting Diagnosis Syncope Bradycardia Hematoma right parietal scalp Chronic anticoagulation Essential hypertension Lumbar back pain Brain contusion DS: Discharge Diagnosis Discharge Diagnosis (1) Syncope: Qualifiers: Syncope type: unspecified Qualified Code(s): R55 - Syncope and collapse Code(s): R55 - Syncope and collapse Status: Acute (2) Bradycardia: Code(s): R00.1 - Bradycardia, unspecified Status: Acute (3) Hematoma of right parietal scalp: Qualifiers: Encounter type: initial encounter Qualified Code(s): S00.03XA - Contusion of scalp, initial encounter Code(s): S00.03XA - Contusion of scalp, initial encounter Status: Acute (4) Lumbar back pain: Code(s): M54.50 - Low back pain, unspecified Status: Acute (5) Essential hypertension: Code(s): I10 - Essential (primary) hypertension Status: Acute (6) Brain concussion: Qualifiers: Encounter type: subsequent encounter Loss of consciousness presence/duration: unknown LOC status Qualified Code(s): S06.0XAD - Concussion with loss of consciousness status unknown, subsequent encounter Code(s): S06.0XAA - Concussion with loss of consciousness status unknown, initial encounter Status: Acute (7) BPH associated with nocturia: Code(s): N40.1 - Benign prostatic hyperplasia with lower urinary tract symptoms; R35.1 - Nocturia Status: Acute (8) Atrial fibrillation: Code(s): I48.91 - Unspecified atrial fibrillation Status: Acute DS: Summary Hospital Course Reason for hospitalization: Syncope Bradycardia Hematoma right parietal scalp Chronic anticoagulation Essential hypertension Lumbar back pain Brain contusion Hospital Course: This is an 84 year old male who presented to the hospital for evaluation after syncopal episode. 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 Chest x-ray that was negative. Lumbar spine x-ray which showed mild lumbar spondylosis diffuse idiopathic skeletal hyperostosis. lumbar spine CT shown dish with nondisplaced fracture through the endplate of T12 through L1, moderate lumbar spondylosis. Initial labs showed a normal white blood cell count of 8.1, hemoglobin 12.0, platelet count 148, creatinine 1.5, EGFR 44, troponin negative x3, TSH 1.910. Initial EKG shown sinus bradycardia with first-degree AV block with a rate of 52, QTC 407. Patient was given pain medication while in the ED. cardiology was also consulted for the syncope. Orthostatic blood pressures did not show a drop in blood pressure or heart rate going from a supine to sitting and sitting to standing position. His Bystolic was held as the possible culprit to his syncopal episode. CTA of the head and neck was essentially normal. Brain MRI was also negative for any acute findings. EEG read as abnormal. Echo was essentially normal. He was given loading dose of Keppra 1 g IV and started on 750 mg of Keppra b.i.d. however was taken off of the Keppra per Neurology recommendation considering this is his 1st episode of possible seizure anticonvulsants are not recommended. Heart rate improved to 70s to 80s on the monitor withholding the Bystolic. Cardiology recommends that he wear a Holter monitor for 5 days to assess for higher degree block verses bradycardia or arrhythmia. He will need to follow up with Cardiology in 4 weeks. He is stable for discharge at this time. Neuro surgery recommending activity as tolerated and does not need to be followed with on an outpatient basis. Neurology gave patient business card and to follow-up if he has another episode as they will evaluate at that time to put him on anticonvulsants since we could not rule out seizure. Syncope and bradycardia likely due to use of Bystolic. He will continue to hold this medicati
== END 2024-07-14 16:30 | disposition home or self-care (01) | DRG 312 ==
LOC: ANHED 18:34 → ANH2MED 18:45
PROVIDERS: Emergency Medicine; Admitting Provider Internal Medicine; Emergency Provider Emergency Medicine; PCP Internal Medicine; Visit Provider Nurse Practitioner Acute Care
DX: R55 Syncope and collapse (principal); S06.0XAA Concussion with loss of consciousness status unknown, initial encounter; S22.089A Unspecified fracture of T11-T12 vertebra, initial encounter for closed fracture; S32.019A Unspecified fracture of first lumbar vertebra, initial encounter for closed fracture; R00.1 Bradycardia, unspecified; S00.03XA Contusion of scalp, initial encounter; I48.0 Paroxysmal atrial fibrillation; I10 Essential (primary) hypertension; E78.5 Hyperlipidemia, unspecified; M47.816 Spondylosis without myelopathy or radiculopathy, lumbar region; M48.16 Ankylosing hyperostosis [Forestier], lumbar region; M10.9 Gout, unspecified; N40.1 Benign prostatic hyperplasia with lower urinary tract symptoms; R35.1 Nocturia; H91.13 Presbycusis, bilateral; Z86.73 Personal history of transient ischemic attack (TIA), and cerebral infarction without residual deficits; Z79.01 Long term (current) use of anticoagulants
CPT/HCPCS: 36415; 70450; 70496; 70498; 70551; 71046; 72100; 72131; 72148; 80053; 81003; 84443; 84484; 85025; 85055; 93005; 93306; 95816; 96375; 97110; 97161; 97165; 97530; 99285; A9270; G0378; J1953; J7030; Q9967

== ENCOUNTER 2024-10-31 07:50 | Outpatient (CLI) | payer MEDICARE, SELFPAY ==
--- OUTSIDE RECORDS SUMMARY | 2024-10-31 07:59 | XMS_ITS | Clinical Summary ---
Author Organization [facility] [address] [facility] [address] Address [address] [place] [address] Care Team Providers Care Barker Operator Name Role Phone Mahamed Richard MD Primary Care Provider [phone] Allergies No known active allergies Medications lisinopril-hydro CHLOROthiazide (ZESTORETIC) 20-25 mg per tablet 12/17/2020 Active simvastatin (ZOCOR) 40 mg tablet 12/17/2020 Active tamsulosin (FLOMAX) 0.4 mg extended release capsule 12/17/2020 Active allopurinoL (ZYLOPRIM) 300 mg tablet 12/17/2020 Active bhvcshgj-nmg-BT- lycopen-lutein (Centrum Silver) 0.4-300-250 mg-mcg-mcg tablet Centrum Silver 07/20/2017 Active Xarelto 20 mg tabletIndication s:Atrial fibrillation, unspecified type (HCC) Take 1 tablet (20 mg total) by mouth daily 90 tablet 3 06/21/2024 Active furosemide (LASIX) 20 mg tabletIndication s:Leg edema, right TAKE 1 TABLET (20 MG TOTAL) BY MOUTH DAILY NEEDED (SWELLING). 90 tablet 3 07/14/2024 Active HYDROcodone-acet aminophen (NORCO) 5-325 mg per tablet TAKE 1 TABLET BY MOUTH EVERY 4 HOURS NEEDED FOR PAIN RATED 4-6 07/14/2024 Active acetaminophen ER (Tylenol Arthritis Pain) 650 mg 8 hr tablet Take 2 tablets every 8 hours by oral route. 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 Office Visit [facility] [address] [place] [id number] Cindy Ambrose NP Bradycardia (Primary Dx); History of syncope; At risk for sleep apnea; Hospital discharge follow-up from Last 3 Months Medical History Medical History Date Comments Hypertension Heart murmur Hyperlipidemia Family History Relation Name Status Comments Mother (Age 85) Social History Tobacco Use Types Packs/Day Years Used Date Smoking Tobacco: Never Smokeless Tobacco: Never Tobacco Cessation:Counseling Given: Not Answered AUDIT-C Answer Date Recorded Q1: How often do you have a drink containing alc ohol? 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 SUPERVISOR Gender Identity Not on file Sexual Orientation Not on file Obstetrics History Last Filed Vital Signs Vital Sign Reading Time Taken Comments Blood Pressure 110/60 08/31/2024 11:24 AM CONTINGENTS SUPERVISOR Pulse 76 08/31/2024 11:24 AM CONTINGENTS SUPERVISOR Temperature - - Respiratory Rate - - Oxygen Saturation 98% 08/31/2024 11:24 AM CONTINGENTS SUPERVISOR Inhaled Oxygen Concentration - - Weight 84.9 kg (187 lb 1.6 oz) 08/31/2024 11:24 AM CONTINGENTS SUPERVISOR Height 177.8 cm (5' 10 ) 08/31/2024 11:24 AM CONTINGENTS SUPERVISOR Body Mass Index 26.85 08/31/2024 11:24 AM CONTINGENTS SUPERVISOR Plan of Treatment Health Maintenance Due Date Last Done Comments Depression Screening 1940 Fall Risk Assessment 1940 DTaP/Tdap/Td Vaccine (1 - Tdap) 1950 Hepatitis B Screening 1957 Zoster Vaccine (1 of 2) 1989 Well Visit 65+ 2004 Pneumococcal vaccine 65+ (2 of 2 - PPSV23 or PCV20) 08/20/2021 08/20/2020 Influenza Vaccine (#1) 2024 0, 07/25/2019, 07/05/2018, Additional history exists Insurance [employer] MEDICARE Care Teams Barker Operator Relationship Specialty Start Date End Date Mahamed Richard MD PCP - General Internal Medicine 01/08/21
--- OUTSIDE RECORDS SUMMARY | 2024-10-31 07:59 | XMS_ITS | Data Portability ---
Author Organization [facility] [employer], Main Office Address [address] [place] [address] Assessment Encounter Date Assessment Date Assessment LastModified by Organization Details LastModified Time 02/04/2023 02/04/2023 Blood work diagnosis in assessment plan have been discussed we will continue current therapy and see me in 6 months [email or web address] Not available 02/04/2023 13:47:49 07/29/2023 07/29/2023 Will continue current therapy flu shot today diagnosis in the assessment and plan have been discussed all questions have been answered follow-up in 4 months Not available 08/07/2023 13:47:20 Plan of Treatment Reminders Order Date Submit Date Provider Last Modified By Organization Details Last Modified Time Details Appointments None recorded . Lab uric acid, serum or plasma 023 02/05/20 23 SENA Not available 3 13:22:53 PSA, serum or plasma 023 02/05/20 23 cyahl Not available 3 11:49:46 CMP, serum or plasma 023 02/05/20 23 [facility] Not available 3 13:22:31 lipid panel, serum 023 02/05/20 23 [facility] Not available 3 13:22:46 Referral None recorded . Procedures None recorded . Surgeries None recorded . Imaging None recorded . Medication Orders None recorded . Patient TargetsNo targets recorded. Patient InstructionsNo instructions recorded. Reason for Referral None Reported. Results Created Date Observation Date Name Description Value Unit Range Abnormal Flag Note LastModifiedBy Organization Detail LastModifiedTime 12/05/19 22 12/04/2021 PSA SCREE N PSA medicare screen 3.51 NG/mL 0.00-4 .00 Not Available [facility] (Lab) [address] [place], [address], 12/04/2021 13:37:11 12/05/19 22 12/04/2021 CBC/C OMPLE TE BLD COUNT W/DIF F white blood cells 8.0 x10'3 /uL 4.2-10 .8 Not Available [facility] (Lab) [address] [place], [address], 12/04/2021 13:14:29 12/05/19 22 12/04/2021 CBC/C OMPLE TE BLD COUNT W/DIF F red blood cells 4.64 x10'6 /uL 4.10-5 .80 Not Available [facility] (Lab) [address] [place], [address], 12/04/2021 13:14:29 12/05/19 22 12/04/2021 CBC/C OMPLE TE BLD COUNT W/DIF F hemoglobin 14.4 g/dL 13.2-1 7.0 Not Available [facility] (Lab) [address] [place], [address], 12/04/2021 13:14:29 12/05/19 22 12/04/2021 CBC/C OMPLE TE BLD COUNT W/DIF F hematocrit 45.1 % 39.3-5 0.0 Not Available [facility] (Lab) [address] [place], [address], 12/04/2021 13:14:29 12/05/19 22 12/04/2021 CBC/C OMPLE TE BLD COUNT W/DIF F mean red cell volume 97.2 fL 80.0-9 7.0 high Not Available [facility] (Lab) [address] [place], [address], 12/04/2021 13:14:29 12/05/19 22 12/04/2021 CBC/C OMPLE TE BLD COUNT W/DIF F mean red cell hemoglobin 31.0 pg 27.0-3 3.0 Not Available [facility] (Lab) [address] [place], [address], 12/04/2021 13:14:29 12/05/19 22 12/04/2021 CBC/C OMPLE TE BLD COUNT W/DIF F mean RBC HGB concentratio n 31.9 g/dL 31.0-[address] [facility] (Lab) [address] [place], [address], 12/04/2021 13:14:29 12/05/19 22 12/04/2021 CBC/C OMPLE TE BLD COUNT W/DIF F red cell distribution width 13.1 % 11.8-1 5.5 Not Available [facility] (Lab) [address] [place], [address], 12/04/2021 13:14:29 12/05/19 22 12/04/2021 CBC/C OMPLE TE BLD COUNT W/DIF F platelets 188 x10'3 /uL 150-40 0 Not Available [facility] (Lab) [address] [place], [address], 12/04/2021 13:14:29 12/05/19 22 12/04/2021 CBC/C OMPLE TE BLD COUNT W/DIF F mean platelet volume 11.2 fL 9.0-12 .4 Not Available [facility] (Lab) [address] [place], [address], 12/04/2021 13:14:29 12/05/19 22 12/04/2021 CBC/C OMPLE TE BLD COUNT W/DIF F neutrophils 67.6 % 39.0-7 2.0 Not Available [facility] (Lab) [address] [place], [address], 12/04/2021 13:14:29 12/05/19 22 12/04/2021 CBC/C OMPLE TE BLD COUNT W/DIF F lymphocytes 24.3 % 16.0-4 7.0 Not Available [facility] (Lab) [address] [place], [address], 12/04/2021 13:14:29 12/05/19 22 12/04/2021 CBC/C OMPLE TE BLD COUNT W/DIF F monocytes 6.1 % 5.0-12 .0 Not Available [facility] (Lab) [address] [place], [address], 12/04/2021 13:14:29 12/05/19 22 12/04/2021 CBC/C OMPLE TE BLD COUNT W/DIF F eosinophils 1.1 % 1.0-7. 0 Not Available [facility] (Lab) [address] [place], [address], 12/04/2021 13:14:29 12/05/19 22 12/04/2021 CBC/C OMPLE TE BLD COUNT W/DIF F basophils 0.7 % 0.0-2. 0 Not Available [facility] (Lab) [address] [place], [address], 12/04/2021 13:14:29 12/05/19 22 12/04/2021 CBC/C OMPLE TE BLD COUNT W/DIF F immature granulocytes 0.2 % 0.00-0 .50 Not Available [facility] (Lab) [address] [place], [address], 12/04/2021 13:14:29 12/05/19 22 12/04/2021 CBC/C OMPLE TE BLD COUNT W/DIF F neutrophils, absolute count 5.43 x10'3 /uL 1.5-8. 0 Not Available [facility] (Lab) [address] [place], [address], 12/04/2021 13:14:29 12/05/19 22 12/04/2021 CBC/C OMPLE TE BLD COUNT W/DIF F lymphocytes, absolute count 1.95 x10'3 /uL 1.07-3 .43 Not Available [facility] (Lab) [address] [place], [address], 12/04/2021 13:14:29 12/05/19 22 12/04/2021 CBC/C OMPLE TE BLD COUNT W/DIF F monocytes, absolute count 0.49 x10'3 /uL 0.29-0 .99 Not Available [facility] (Lab) [address] [place], [address], 12/04/2021 13:14:29 12/05/19 22 12/04/2021 CBC/C OMPLE TE BLD COUNT W/DIF F eosinophils, absolute count 0.09 x10'3 /uL 0.02-0 .53 Not Available [facility] (Lab) [address] [place], [address], 12/04/2021 13:14:29 12/05/19 22 12/04/2021 CBC/C OMPLE TE BLD COUNT W/DIF F basophils, absolute count 0.06 x10'3 /uL 0.01-0 .08 Not Available [facility] (Lab) [address] [place], [address], 12/04/2021 13:14:29 12/05/19 22 12/04/2021 CBC/C OMPLE TE BLD COUNT W/DIF F immature granulocytes ,absolute 0.02 x10'3 /uL 0.00-0 .05 Not Available [facility] (Lab) [address] [place], [address], 12/04/2021 13:14:29 12/05/19 22 12/04/2021 CBC/C OMPLE TE BLD COUNT W/DIF F nucleated red blood cells 0.0 % -0 Not Available [facility] (Lab) [address] [place], [address], 12/04/2021 13:14:29 12/05/19 22 12/04/2021 CBC/C OMPLE TE BLD COUNT W/DIF F NRBC# 0.00 x10'3 /uL Not Available [facility] (Lab) [address] [place], [address], 12/04/2021 13:14:29 12/05/19 22 12/04/2021 URIC ACID SERUM uric acid 4.5 mg/dL 3.5-8. 5 Not Available [facility] (Lab) [address] [place], [address], 12/04/2021 13:07:04 12/05/19 22 12/04/2021 COMPR EHENS LIZZETTE METAB OLIC PANEL sodium 139 mmol/ L 137-14 5 Not Available [facility] (Lab) [address] [place], [address], 12/04/2021 13:07:01 12/05/19 22 12/04/2021 COMPR EHENS LIZZETTE METAB OLIC PANEL potassium 4.6 mmol/ L 3.5-5. 1 Not Available [facility] (Lab) [address] [place], [address], 12/04/2021 13:07:01 12/05/19 22 12/04/2021 COMPR EHENS LIZZETTE METAB OLIC PANEL chloride 103 mmol/ L 98-107 Not Available [facility] (Lab) [address] [place], [address], 12/04/2021 13:07:01 12/05/19 22 12/04/2021 COMPR EHENS LIZZETTE METAB OLIC PANEL carbon dioxide 30 mmol/ L 22-30 Not Available [facility] (Lab) [address] [place], [address], 12/04/2021 13:07:01 12/05/19 22 12/04/2021 COMPR EHENS LIZZETTE METAB OLIC PANEL agap 10.6 mmol/ L 14-22 low Not Available [facility] (Lab) [address] [place], [address], 12/04/2021 13:07:01 12/05/19 22 12/04/2021 COMPR EHENS LIZZETTE METAB OLIC PANEL glucose 110 mg/dL 70-99 high Not Available [facility] (Lab) [address] [place], [address], 12/04/2021 13:07:01 12/05/19 22 12/04/2021 COMPR EHENS LIZZETTE METAB OLIC PANEL BUN 20 mg/dL 8-19 high Not Available [facility] (Lab) [address] [place], [address], 12/04/2021 13:07:01 12/05/19 22 12/04/2021 COMPR EHENS LIZZETTE METAB OLIC PANEL creatinine 1.14 mg/dL 0.66-1 .25 Not Available [facility] (Lab) [address] [place], [address], 12/04/2021 13:07:01 12/05/19 22 12/04/2021 COMPR EHENS LIZZETTE METAB OLIC PANEL GFR >60 Refer ence Range : Corinna ge GFR Healt hy Adult : >60 mL/mi n/1.7 3 m2 Chron ic Kidne y Disea se: 15-60 mL/mi n/1.7 3 m2 Kidne y Failu re: <15/m L/min /1.73 m2 www.n iddk. nih.g ov The MDRD study equat ion has not been valid ated in child toro <18 years of age; pregn ant women ; the elder ly >85 years of age; or in some racia l or ethni c subgr oups, such as Hispa nics. Outsi de the valid ated padilla eters , estim ated GFR is less accur ate, requi ring clini corrine judgm ent on a case- by-ca se basis . Clini corrine inter preta tion for other races and ages must be made by the clini brandan. The MDRD study equat ion has not been valid ated for the evalu ation of serum creat inine relat ed to nutri twila l statu s or medic ation usage . For perso ns <18 years of age, a pedia tric GFR calcu lator is avail able on the [facility] websi te: https ://ww w.kid nav.o rg/pr ofess ional s/kdo qi/gf r_cal culat or Not Available [facility] (Lab) [address] [place], [address], 12/04/2021 13:07:01 12/05/19 22 12/04/2021 COMPR EHENS LIZZETTE METAB OLIC PANEL alkaline phosphatase 77 U/L 38-126 Not Available [facility] (Lab) [address] [place], [address], 12/04/2021 13:07:01 12/05/19 22 12/04/2021 COMPR EHENS LIZZETTE METAB OLIC PANEL alanine aminotransfe rase 14 U/L 0-50 Not Available [facility] (Lab) [address] [place], [address], 12/04/2021 13:07:01 12/05/19 22 12/04/2021 COMPR EHENS LIZZETTE METAB OLIC PANEL aspartate aminotransfe rase 26 U/L 15-46 Not Available [facility] (Lab) [address] [place], [address], 12/04/2021 13:07:01 12/05/19 22 12/04/2021 COMPR EHENS LIZZETTE METAB OLIC PANEL bilirubin, total 0.60 mg/dL 0.20-1 .30 Not Available [facility] (Lab) [address] [place], [address], 12/04/2021 13:07:01 12/05/19 22 12/04/2021 COMPR EHENS LIZZETTE METAB OLIC PANEL calcium 10.3 mg/dL 8.4-10 .2 high Not Available [facility] (Lab) [address] [place], [address], 12/04/2021 13:07:01 12/05/19 22 12/04/2021 COMPR EHENS LIZZETTE METAB OLIC PANEL total protein 7.2 g/dL 6.3-8. 2 Not Available [facility] (Lab) [address] [place], [address], 12/04/2021 13:07:01 12/05/19 22 12/04/2021 COMPR EHENS LIZZETTE METAB OLIC PANEL albumin 4.2 g/dL 3.0-4. 4 Not Available [facility] (Lab) [address] [place], [address], 12/04/2021 13:07:01 12/05/19 22 12/04/2021 COMPR EHENS LIZZETTE METAB OLIC PANEL globulin 3.0 g/dL 2.6-4. 2 Not Available [facility] (Lab) [address] [place], [address], 12/04/2021 13:07:01 12/05/19 22 12/04/2021 COMPR EHENS LIZZETTE METAB OLIC PANEL A/G ratio 1.4 ratio 1.0-2. 0 Not Available [facility] (Lab) [address] [place], [address], 12/04/2021 13:07:01 12/05/19 22 12/04/2021 LIPID PANEL cholesterol 152 mg/dL 140-19 9 NIH HANK NSUS RECOM MENDA TION FOR ANIYA STERO L: ADULT CHILD LOW RISK: <200 <170 BORDE RLINE : <200- 239 ----- HIGH RISK: >240 >200 Not Available [facility] (Lab) [address] [place], [address], 12/04/2021 13:06:55 12/05/19 22 12/04/2021 LIPID PANEL triglyceride s 105 mg/dL 0-150 NIH HANK NSUS REPOR T RECOM MENDA TION FOR TRIGL YCERI WILLIAM: ADULT CHILD LOW RISK: <150 ----- BODER LINE: 150-1 99 ----- HIGH RISK: >200 ----- Not Available [facility] (Lab) [address] [place], [address], 12/04/2021 13:06:55 12/05/19 22 12/04/2021 LIPID PANEL HDL cholesterol 52 mg/dL 40- Not Available [facility] (Lab) [address] [place], [address], 12/04/2021 13:06:55 12/05/19 22 12/04/2021 LIPID PANEL LDL cholesterol, calculated 79 mg/dL 0-130 NIH HANK NSUS REPOR T RECOM MENDA TIONS FOR LDL: ADULT CHILD LOW RISK <130 <110 (OPTI MAL LDL) <100 ----- CHANTELLE RLINE : 130-1 59 ----- HIGH RISK: >160 >130 A TRIGL YCERI DE RESUL T >400 INVAL IDATE S THE CALCU LATIO N FOR LDL FRACT IONAT ION - THE LDL RESUL T WILL NOT BE REPOR JESSICA. Not Available [facility] (Lab) [address] [place], [address], 12/04/2021 13:06:55 02/05/20 23 02/04/2023 COMPR EHENS LIZZETTE METAB OLIC PANEL sodium 140 mmol/ L 137-[address] [facility] (Lab) [address] [place], [address], 02/04/2023 13:22:31 02/05/20 23 02/04/2023 COMPR EHENS LIZZETTE METAB OLIC PANEL potassium 4.3 mmol/ L 3.5-5. 1 Not Available [facility] (Lab) [address] [place], [address], 02/04/2023 13:22:31 02/05/20 23 02/04/2023 COMPR EHENS LIZZETTE METAB OLIC PANEL chloride 103 mmol/ L 98-107 Not Available [facility] (Lab) [address] [place], [address], 02/04/2023 13:22:31 02/05/20 23 02/04/2023 COMPR EHENS LIZZETTE METAB OLIC PANEL carbon dioxide 28 mmol/ L 22-30 Not Available [facility] (Lab) [address] [place], [address], 02/04/2023 13:22:31 02/05/20 23 02/04/2023 COMPR EHENS LIZZETTE METAB OLIC PANEL anion gap 13.3 mmol/ L 14-22 low Not Available [facility] (Lab) [address] [place], [address], 02/04/2023 13:22:31 02/05/20 23 02/04/2023 COMPR EHENS LIZZETTE METAB OLIC PANEL glucose 100 mg/dL 70-99 high Not Available [facility] (Lab) [address] [place], [address], 02/04/2023 13:22:31 02/05/20 23 02/04/2023 COMPR EHENS LIZZETTE METAB OLIC PANEL BUN 19 mg/dL 8-19 Not Available [facility] (Lab) [address] [place], [address], 02/04/2023 13:22:31 02/05/20 23 02/04/2023 COMPR EHENS LIZZETTE METAB OLIC PANEL creatinine 1.18 mg/dL 0.66-1 .25 Not Available [facility] (Lab) [address] [place], [address], 02/04/2023 13:22:31 02/05/20 23 02/04/2023 COMPR EHENS LIZZETTE METAB OLIC PANEL GFR 59 Refer ence Range : Corinna ge GFR Healt hy Adult : >60 mL/mi n/1.7 3 m2 Chron ic Kidne y Disea se: 15-60 mL/mi n/1.7 3 m2 Kidne y Failu re: <15/m L/min /1.73 m2 www.n iddk. nih.g ov The MDRD study equat ion has not been valid ated in child toro <18 years of age; pregn ant women ; the elder ly >85 years of age; or in some racia l or ethni c subgr oups, such as Hispa nics. Outsi de the valid ated padilla eters , estim ated GFR is less accur ate, requi ring clini corrine judgm ent on a case- by-ca se basis . Clini corrine inter preta tion for other races and ages must be made by the clini brandan. The MDRD study equat ion has not been valid ated for the evalu ation of serum creat inine relat ed to nutri twila l statu s or medic ation usage . For perso ns <18 years of age, a pedia tric GFR calcu lator is avail able on the [facility] websi te: https ://ww w.kid nav.o rg/pr ofess ional s/kdo qi/gf r_cal culat or Not Available [facility] (Lab) [address] [place], [address], 02/04/2023 13:22:31 02/05/20 23 02/04/2023 COMPR EHENS LIZZETTE METAB OLIC PANEL alkaline phosphatase 54 U/L 38-126 Not Available [facility] (Lab) [address] [place], [address], 02/04/2023 13:22:31 02/05/20 23 02/04/2023 COMPR EHENS LIZZETTE METAB OLIC PANEL alanine aminotransfe rase 15 U/L 0-50 Not Available [facility] (Lab) [address] [place], [address], 02/04/2023 13:22:31 02/05/20 23 02/04/2023 COMPR EHENS LIZZETTE METAB OLIC PANEL aspartate aminotransfe rase 26 U/L 15-46 Not Available [facility] (Lab) [address] [place], [address], 02/04/2023 13:22:31 02/05/20 23 02/04/2023 COMPR EHENS LIZZETTE METAB OLIC PANEL bilirubin, total 0.70 mg/dL 0.20-1 .30 Not Available [facility] (Lab) [address] [place], [address], 02/04/2023 13:22:31 02/05/20 23 02/04/2023 COMPR EHENS LIZZETTE METAB OLIC PANEL calcium 9.6 mg/dL 8.4-10 .2 Not Available [facility] (Lab) [address] [place], [address], 02/04/2023 13:22:31 02/05/20 23 02/04/2023 COMPR EHENS LIZZETTE METAB OLIC PANEL total protein 6.5 g/dL 6.3-8. 2 Not Available [facility] (Lab) [address] [place], [address], 02/04/2023 13:22:31 02/05/20 23 02/04/2023 COMPR EHENS LIZZETTE METAB OLIC PANEL albumin 4.0 g/dL 3.0-4. 4 Not Available [facility] (Lab) [address] [place], [address], 02/04/2023 13:22:31 02/05/20 23 02/04/2023 COMPR EHENS LIZZETTE METAB OLIC PANEL globulin 2.5 g/dL 2.6-4. 2 low Not Available [facility] (Lab) [address] [place], [address], 02/04/2023 13:22:31 02/05/20 23 02/04/2023 COMPR EHENS LIZZETTE METAB OLIC PANEL A/G ratio 1.6 ratio 1.0-2. 0 Not Available [facility] (Lab) [address] [place], [address], 02/04/2023 13:22:31 02/05/2002/04/2023 LIPID PANEL cholesterol 162 mg/dL 140-19 9 NIH HANK NSUS RECOM MENDA TION FOR ANIYA STERO L: ADULT CHILD LOW RISK: <200 <170 BORDE RLINE : <200- 239 ----- HIGH RISK: >240 >200 Not Available [facility] (Lab) [address] [place], [address], 02/04/2023 13:22:46 02/05/20 23 02/04/2023 LIPID PANEL triglyceride s 73 mg/dL 0-150 NIH HANK NSUS REPOR T RECOM MENDA TION FOR TRIGL YCERI WILLIAM: ADULT CHILD LOW RISK: <150 ----- BODER LINE: 150-1 99 ----- HIGH RISK: >200 ----- Not Available [facility] (Lab) [address] [place], [address], 02/04/2023 13:22:46 02/05/20 23 02/04/2023 LIPID PANEL HDL cholesterol 56 mg/dL 40- Not Available [facility] (Lab) [address] [place], [address], 02/04/2023 13:22:46 02/05/20 23 02/04/2023 LIPID PANEL LDL cholesterol, calculated 91 mg/dL 0-130 NIH HANK NSUS REPOR T RECOM MENDA TIONS FOR LDL: ADULT CHILD LOW RISK <130 <110 (OPTI MAL LDL) <100 ----- BORDE RLINE : 130-1 59 ----- HIGH RISK: >160 >130 A TRIGL YCERI DE RESUL T >400 INVAL IDATE S THE CALCU LATIO N FOR LDL FRACT IONAT ION - THE LDL RESUL T WILL NOT BE REPOR JESSICA. Not Available [facility] (Lab) [address] [place], [address], 02/04/2023 13:22:46 02/05/20 23 02/04/2023 URIC ACID SERUM uric acid 5.4 mg/dL 3.5-8. 5 Not Available [facility] (Lab) [address] [place], [address], 02/04/2023 13:22:53 02/05/20 23 02/04/2023 PSA SCREE N PSA medicare screen 3.33 NG/mL 0.00-4 .00 Not Available [facility] (Lab) [address] [place], [address], 02/04/2023 22:18:39 12/05/19 22 XR, cervi corrine spine , 2 or 3 view [facility] [address] [place] [address] Patien t Name: JULES BAY Access ion #: [id number] Sex: M : 1939 8 Locati on: MO2 Attend ing Physic clayton: MIN RICHARD Orderi ng Physic clayton: MIN RICHARD Exam Date: 022 10:23 AM Exam Name: XR C SPINE 2-3V Admitt ing Diagno sis(es ): RADIOL OGY REPORT - FINAL EXAM: XR C SPINE 2-3V HISTOR Y: neck pain 81-yea r-old male with neck pain for 1 year, no known injury . COMPAR CELINA: Radiog raphs dated 2020. TECHNI QUE: AP, latera l, and odonto id views of the cervic al spine were perfor med. FINDIN GS: No cervic al fractu re, listhe sis, or prever tebral soft tissue edema are identi fied. There is advanc ed degene rative disc diseas e and modera te to advanc ed facet arthro hannah. IMPRES NIRAJ: 1. Degene rative change s of the cervic al spine withou t eviden ce of fractu re. Page 1 of 2 [facility] Patien t Name: JULES BAY Access ion #: [id number] Sex: M : 1939 7 Exam Date: 10:23 AM Exam Name: XR C SPINE 2-3V Admitt ing Diagno sis(es ): Findin gs are simila r to that seen on radiog raphs dated 2020. 2. If the patien t compla ins of upper extrem ity radicu lar sympto ms, consid er follow -up noncon trast MRI of the cervic al spine for evalua tion of the exitin g nerve roots. . Create d and electr onical ly signed by: Jules cleary MD Signed Date: 1:17 PM (CT) Dictat ed by: Jules cleary MD DD: 1:17 PM (CT) DT: 1:17 PM (CT) Page 2 of 2 [id number] [facility] (Imaging) [address] [place], [address], 11/25/2022 04:59:49 12/09/19 22 12/08/2021 US, sven x, lyly id arter y No observ ation record ed. [id number] [facility] (Imaging) [address] [place] [address] [place] [address], [id number], 11/25/2022 04:59:49 12/12/19 22 MRI, brain , w/wo contr ast [facility] [address] [place] [address] Sarah Beth t Name: JULES BAY Access ion #: [id number] Sex: M : 1939 3 Locati on: RA2 Attend ing Physic clayton: MIN RICHARD Orderi Physic clayton: MIN RICHARD Exam Date: 9:45 AM Exam Name: MRI BRAIN W/WO Admitt ing Diagno sis(es ): RADIOL OGY REPORT - FINAL EXAM: MRI BRAIN W/WO HISTOR Y: dizzin ess 81-yea r-old male with headac he, dizzin ess, loss of balanc e, no known injury . COMPAR CELINA: None availa ble. TECHNI QUE: Multip lanar multis equenc e pre and post IV contra st MR images of the brain were perfor med. 16 ml MultiH ance gadoli nium contra st were used. FINDIN GS: There is global brain atroph y with promin ence of the ventri cular system and sulci. There is mild high T2-FLA IR signal abnorm ality in the perive ntricu lar white matter . There is an old lacuna r infarc t of the right stephen. No intrac ranial mass, midlin e shift, hydroc ephalu s, or abnorm al postco ntrast Page 1 of 2 [facility] Patien t Name: JULES BAY Access ion #: [id number] Sex: M : 1939 3 Exam Date: 022 9:45 AM Exam Name: MRI BRAIN W/WO Admitt ing Diagno sis(es ): enhanc ement. The diffus ion-we ighted images do not demons trate restri cted diffus ion. Flow voids are presen t in the major intrac ranial vessel s. The corpus callos um, sella, pituit vinicio, and cranio cervic al juncti on are unrema rkable . The optic globes are symmet sharita. There are postop erativ e change s of bilate ral catara ct extrac tion surger y. There is mild mucosa l thicke george in the right maxill vinicio and bilate ral ethmoi d sinuse s. The bilate ral mastoi d air cells are clear. There is a left occipi jasmine scalp ovoid 16 mm mass consis tent with sebace ous cyst (image 8, series 301). All of the maxill vinicio teeth are absent . IMPRES NIRAJ: 1. Global brain atroph y and chroni c ischem ic change s withou t eviden ce of acute infarc t or other acute intrac ranial proces s. 2. Mild parana tommy sinus diseas e. 3. Postop erativ e change s of catara ct extrac tion surger y. Create d and electr onical ly signed by: Jules cleary MD Signed Date: 1:40 PM (CT) Dictat ed by: Jules cleary MD DD: 1:40 PM (CT) DT: 1:40 PM (CT) Page 2 of 2 [id number] [facility] (Imaging) [address] [place], [address], 11/25/2022 04:59:49 Result Notes None recorded. Problems Name Problem SNOMED Code Status Onset Date Resolution Date Notes Provider Name and Address Organization Details Recorded Time Chronic back pain 134781090 Active Not Available [facility] 3 17:06:40 Urinary incontinence 423583830 Active 2021 Not Available [facility] 3 17:06:40 Blood glucose outside reference range 725358221 Active Not Available [facility] 3 17:06:40 Sciatica 49567783 Active Not Available [facility] 3 17:06:40 Pure hypercholeste rolemia 119007482 Active Not Available [facility] 3 17:06:40 Low back pain 378098143 Active Not Available [facility] 3 17:06:40 Dyslipidemia 995327266 Active 2018 Not Available [facility] 3 17:06:40 Diverticular disease 448206782 Active Not Available [facility] 3 17:06:40 Vertigo 394548034 Active Not Available [facility] 3 17:06:40 Dizziness 511758842 Active Not Available [facility] 3 17:06:40 Obesity 665925550 Active Not Available [facility] 3 17:06:40 Chronic atrial fibrillation 586158525 Active 2020 Not Available [facility] 3 17:06:40 Essential hypertension 46335159 Active Not Available [facility] 3 17:06:40 Neck pain 21304189 Active 2021 Not Available [facility] 3 17:06:40 Gout 00291139 Active Not Available [facility] 3 17:06:40 Skin lesion 54973383 Active Not Available [facility] 3 17:06:40 Problem Notes None recorded. Procedures Surgical History Date Name Laterality Status Provider Name and Address Organization Details Recorded Time 12/28/19 Colonoscopy completed Not Available [facility] 11/26/19 04:42:35 Cholecystectomy completed Not Available [facility] 11/25/2022 04:42:35 Imaging Results Imaging Date Name Status LastModified by Organiz ation Details LastModified Time 12/04/2021 XR, cervical spine, 2 or 3 view completed [id number] [facility] (Imaging) [address] [place], [address], 11/25/2022 04:59:49 12/11/2021 MRI, brain, w/wo contrast completed [id number] [facility] (Imaging) [address] [place], [address], 11/25/2022 04:59:49 12/08/2021 US, duplex, carotid artery completed [id number] [facility] (Imaging) [address] [place] [address], [phone], 11/25/2022 04:59:49 Procedure Notes None recorded. Medical Equipment None Reported. Allergies No known drug allergies Medications Name Sig Start Date Stop Date Status Note LastModified by Organization Details LastModified Time cyclobenzapr ine 10 mg tablet active Not Available Not Available Not Available hydrocodone 5 mg-acetamino phen 325 mg tablet TAKE ONE TABLET BY MOUTH THREE TIMES DAILY NEEDED 11/16 completed Not Available Not Available Not Available Tylenol Arthritis Pain 650 mg tablet,exten ded release Take 2 tablets every 8 hours by oral route. 2021 active Not Available Not Available Not Avai lable penicillin V potassium 500 mg tablet 07/20 completed Not Available Not Available Not Available sulfamethoxa zole 800 mg-trimethop rim 160 mg tablet 01/05 completed Not Available Not Available Not Available simvastatin 40 mg tablet TAKE 1 TABLET BY MOUTH EVERY DAY active Not Available Not Available No t Available amoxicillin 875 mg tablet TAKE 1 TABLET BY MOUTH TWICE DAILY UNTIL ALL TAKEN 02/04 completed Not Available Not Available Not Available tamsulosin 0.4 mg capsule TAKE 1 CAPSULE BY MOUTH EVERY DAY active Not Available Not Available No t Available Valium 5 mg tablet Take 1 tablet(s ) 30 mins before MRI 04/04 completed Not Available Not Available Not Available meclizine 25 mg tablet Take 1 tablet 3 times a day by oral route. 05/19 completed Not Available Not Available Not Available lisinopril 20 mg-hydrochlo rothiazide 25 mg tablet TAKE 1 TABLET BY MOUTH EVERY DAY active Not Available Not Available No t Available hydrocodone 5 mg-acetamino phen 500 mg tablet 06/01 completed Not Available Not Available Not Available allopurinol 300 mg tablet TAKE 1 TABLET BY MOUTH EVERY DAY active Not Available Not Available No t Available hydrochlorot hiazide 25 mg tablet active Not Available Not Available No t Available mupirocin 2 % topical ointment 03/15 completed Not Available Not Available Not Available Viagra 100 mg tablet Take 1 tablet as needed by oral route. 04/04 completed Not Available Not Available Not Available methylpredni solone 4 mg tablets in a dose pack 06/01 completed Not Available Not Available Not Available cefdinir 300 mg capsule 11/11 completed Not Available Not Available Not Available finasteride 5 mg tablet TK 1 T PO D active Not Available Not Available No t Available ramipril 10 mg capsule 1 DAILY active Not Available Not Available N ot Available amoxicillin 875 mg-potassium clavulanate 125 mg tablet TAKE 1 TABLET BY MOUTH TWICE DAILY active Not Available Not Available No t Available neomycin 3.5 mg/g-polymyx in B 10,000 unit/g-dexam eth 0.1 % eye oint active Not Available Not Available Not Available solifenacin 5 mg tablet TK 1 T PO D 11/16 completed Not Available Not Available Not Available solifenacin 10 mg tablet TK 1 T PO D active Not Available Not Available No t Available Centrum Silver 2016 active Not Available Not Available Not Avai lable nebivolol 10 mg tablet TAKE 1 TABLET BY MOUTH EVERY DAY active Not Available Not Available No t Available Suprep Bowel Prep Kit 17.5 gram-3.13 gram-1.6 gram oral solution 01/14 completed Not Available Not Available Not Available Xarelto 20 mg tablet Take 1 tablet every day by oral route. active Not Available Not Available No t Available Vitals Date Recorded Body mass index (BMI) Body mass index (BMI) Body mass index (BMI) Body height Body height Body height Pain severity - 0-10 verbal numeric rating [Score] - Reported Heart rate Heart rate Heart rate Body temperature Body temperature Body temperature Body weight Body weight Body weight Systolic blood pressure Diastolic blood pressure Systolic blood pressure Diastolic blood pressure Systolic blood pressure Diastolic blood pressure Provider Name and Address Organization Details Last Updated DateTime 3 27.8 kg/m2 27.3 kg/m2 27.9 kg/m2 175.26 cm 175.26 cm 175.26 cm 5 78 /min 64 /min 61 /min 97.6 [degF] 96.2 [degF] 98.3 [degF] 39308.3 7 g 13399.5 9 g 87355.9 6 g 110 mm[Hg] 66 mm[Hg] 120 mm[Hg] 60 mm[Hg] 122 mm[Hg] 76 mm[Hg] Not Available [facility] 3 04:47:14 Date Recorded Body height Body mass index (BMI) Body weight Body temperature Heart rate Systolic blood pressure Diastolic blood pressure Provider Name and Address Organization Details Last Updated DateTime 3 175.26 cm 26.7 kg/m2 99483.2 2 g 97.9 [degF] 72 /min 122 mm[Hg] 76 mm[Hg] ANTOINETTE Nowak [place] [employer] [facility] [employer] 3 10:59:32 Date Recorded Body height Body mass index (BMI) Body weight Body temperature Heart rate Systolic blood pressure Diastolic blood pressure Provider Name and Address Organization Details Last Updated DateTime 3 175.26 cm 27.3 kg/m2 89112.5 9 g 98.2 [degF] 62 /min 124 mm[Hg] 72 mm[Hg] ANTOINETTE Nowak [employer] 3 10:53:33 Social History Question Answer Notes LastModified by Organization Details LastModified Time Tobacco Smoking Status Never Smoker Not Available [facility] 11/25/2022 04:21:43 Do You Have An Advance Directive? Yes MIGRATION.0301 [id number] Information not available 11/25/2022 What Is Your Level Of Alcohol Consumption? None MIGRATION.0301 307053 Information not available 11/25/2022 Are You Blind Or Do You Have Difficulty Seeing? No MIGRATION.0301 376270 Information not available 11/25/2022 What Is Your Level Of Caffeine Consumption? Heavy MIGRATION.0301 864621 Information not available 11/25/2022 How Much Tobacco Do You Chew? None MIGRATION.030 861639 Information not available 11/25/2022 In The 14 Days Before Symptom Onset, Have You Had Close Contact With A Laboratory-confi rmed COVID-19 While That Case Was Ill? No MIGRATION.030 084752 Information not available 11/25/2022 In The 14 Days Before Symptom Onset, Have You Had Close Contact With A Person Who Is Under Investigation For COVID-19 While That Person Was Ill? No MIGRATION.030 770605 Information not available 11/25/2022 Are You Deaf Or Do You Have Serious Difficulty Hearing? Yes Has Hearing Aids MIGRATION.030 615590 Information not available 11/25/2022 What Type Of Diet Are You Following? REGULAR MIGRATION.030 501865 Information not available 11/25/2022 Which Illicit Or Recreational Drugs Have You Used? None MIGRATION.030 050387 Information not available 11/25/2022 Do You Or Have You Ever Used E-cigarettes Or Vape? Never Used Electronic Cigarettes MIGRATION.030 232604 Information not available 11/25/2022 What Is The Highest Grade Or Level Of School You Have Completed Or The Highest Degree You Have Received? [id number] MIGRATION.030 752192 Information not available 11/25/2022 What Is Your Occupation? Retired MIGRATION.030 080249 Information not available 11/25/2022 Have There Been Any Changes To Your Family Or Social Situation? No MIGRATION.0301 361710 Information not available 11/25/2022 What Is The Fluoride Status Of Your Home? Unknown MIGRATION.030 580649 Information not available 11/25/2022 Are There Any Guns Present In Your Home? Yes MIGRATION.0301 166173 Information not available 11/25/2022 Do You Use Insect Repellent Routinely? No MIGRATION.0301 000346 Information not available 11/25/2022 Where Do You Live? [facility] MIGRATION.0301 916172 Information not available 11/25/2022 Do You Have A Medical Power Of Coiled Tubing Supervisor? Yes MIGRATION.0301 084434 Information not available 11/25/2022 What Was The Date Of Your Most Recent Tobacco Screening? 07/29/2023 [email or web address] Information not available 07/29/2023 Do You Have Any Pets? No MIGRATION.0301 742906 Information not available 11/25/2022 What Is Your Relationship Status? MIGRATION.0301 312409 Information not available 11/25/2022 Do You Use Your Seat Belt Or Car Seat Routinely? Yes MIGRATION.0301 209337 Information not available 11/25/2022 Do You Have Smoke And Carbon Monoxide Detectors In Your Home? Yes MIGRATION.0301 017483 Information not available 11/25/2022 Are You Passively Exposed To Smoke? No MIGRATION.0301 780471 Information not available 11/25/2022 Do You Or Have You Ever Used Smokeless Tobacco? Never Used Smokeless Tobacco MIGRATION.0301 822995 Information not available 11/25/2022 Are There Any Smokers In Your House? No MIGRATION.0301 144108 Information not available 11/25/2022 How Much Tobacco Do You Smoke? No MIGRATION.0301 589765 Information not available 11/25/2022 What Types Of Sporting Activities Do You Participate In? None MIGRATION.0301 056481 Information not available 11/25/2022 Do You Feel Stressed (tense, Restless, Nervous, Or Anxious, Or Unable To Sleep At Night)? [id number] MIGRATION.0301 [id number] Information not available 11/25/2022 Do You Use Any Illicit Or Recreational Drugs? No MIGRATION.0301 587390 Information not available 11/25/2022 Do You Use Sunscreen Routinely? No MIGRATION.0301 748939 Information not available 11/25/2022 Has Tobacco Cessation Counseling Been Provided? No Not Needed-ne tammy Smoked MIGRATION.0301 330509 Information not available 11/25/2022 Have You Recently Traveled Abroad? No MIGRATION.0301 807078 Information not available 11/25/2022 Do You Have Any Dietary Restrictions? No MIGRATION.0301 578896 Information not available 11/25/2022 Do You Or Have You Ever Used Any Other Forms Of Tobacco Or Nicotine? No MIGRATION.0301 757398 Information not available 11/25/2022 Sex: Male Functional Status Question Answer Note LastModified by Organizat ion Details LastModified Time Do you have difficulty walking or climbing stairs? No MIGRATION.[id number] 026 Information not available 11/25/2022 Do you have transportation difficulties? No MIGRATION.1743241 026 Information not available 11/25/2022 Are you able to walk? YESWOREST MIGRATION.5208078 026 Information not available 11/25/2022 Do you have difficulty doing errands alone? No MIGRATION.6302596 026 Information not available 11/25/2022 Are you able to care for yourself? Yes MIGRATION.1041605 026 Information not available 11/25/2022 Do you have difficulty dressing or bathing? No MIGRATION.8871319 026 Information not available 11/25/2022 What is your exercise level? None MIGRATION.0078369 026 Information not available 11/25/2022 Mental Status Question Answer Note LastModified by Organizat ion Details LastModified Time Do you have difficulty concentrating, remembering or making decisions? No MIGRATION.[id number] 6 Information not available 11/25/2022 Family History Relationship Description Onset Age of this Age Resolved Age Notes LastModified by Organization Details LastModified Time Father Malignant neoplastic disease MIGRATION.725 [id number] Not available 11/25/2022 04:42:41 Mother Hypertensive disorder MIGRATION.633 [id number] Not available 11/25/2022 04:42:41 Medical History Condition Response NERVE DISEASE N BLINDNESS N RHEUMATIC FEVER N KIDNEY STONES N BLADDER PROBLEMS N MRSA N OTHER # 1 N POLIO N LUNG DISEASE/DISORDER N RADIATION / CHEMOTHERAPY N COPD N Other # 2 N BLOOD DISEASES N SURGERY N EAR OR HEARING PROBLEMS N MUMPS N BOWEL PROBLEMS Y DEPRESSION (INCLUDING POST ) N STROKE/TIA N ULCERS N BENIGN PROSTATIC HYPERPLASIA N MEASLES N MYOCARDIAL INFARCTION N OBESITY N GERD/NAUSEA N ANEURYSM N URINARY/BLADDER/KIDNEY PROBLEMS N CORONARY ARTERY DISEASE (CAD) N ADDICTION CONCERNS N ENDOMETRIOSIS N Impotence N USE OF BLOOD THINNERS N SKIN PROBLEMS N GASTROINTESTINAL DISORDER N PERIPHERAL VASCULAR DISEASE N MUSCLE,JOINT OR BONE PROBLEMS N GASTROINTESTINAL BLEEDING N BLOOD CLOTS N ASTHMA N CATARACTS N ERECTILE DYSFUNCTION N VARICOSITIES N GI PROBLEMS N Low Testosterone N INFERTILITY N AIDS/HIV N CHEMOTHERAPY / RADIATION N LIVER DISEASE N MALE HYPOGONADISM N HYPERTENSION Y Deficiency N ANXIETY DISORDER N BLOOD TRANSFUSION N ANEMIA/BLOOD DISORDER N CHRONIC EAR INFECTIONS N BRONCHITIS N TUBERCULOSIS N GLAUCOMA N FOOT PROBLEM N DIVERTICULITIS N SLEEP APNEA N CHICKENPOX N INFECTIOUS DISEASE N HEART ARRHYTHMIA N PROSTATE N INSOMNIA N HIGH CHOLESTEROL / HYPERLIPIDEMIA Y HYPERTHYROIDISM N EYE PROBLEMS Y NEUROLOGICAL PROBLEMS N EDEMA N CHRONIC PAIN SYNDROME N HYPOTHYROIDISM N CAROTID BLOCKAGE N CONSTIPATION N BACK / NECK PROBLEMS Y HAVE YOU BEEN HOSPITALIZED OR SEEN IN [facility] IN THE PAST YEAR ? N ATHEROSCLEROSIS N BREAST PROBLEMS N DIALYSIS N ECZEMA N OSTEOPOROSIS N ARTHRITIS N APPENDICITIS N DIABETES, TYPE N BAD TEETH N ENT N HEARTBURN / REFLUX N AFIB N AUTISM SPECTRUM DISORDER (ASD) N HEPATITIS / LIVER DISEASE N GOUT Y SLEEP DISORDER N ALZHEIMER'S DISEASE N Brain Problems N HERPES N DEMENTIA N HEADACHES/MIGRAINES N SEIZURES/EPILEPSY N VASCULAR DISEASE N PACEMAKER N Blood Disorder N DIZZINESS N HEART DISEASE/HEART PROBLEMS N KIDNEY DISEASE N MULTIPLE SCLEROSIS N CARDIAC ARRHYTHMIA N CANCER: SPECIFY N ATRIAL FIBRILLATION Y Gall Stones N PULMONARY EMBOLISM N AUTOIMMUNE DISEASE N Immunizations Vaccine Type Date Status Note Provider Nam e and Address Organization Details Recorded Time COVID-19, mRNA, LNP-S, PF, 30 mcg/0.3 mL dose 1 completed Not Available [facility] 03/03/2023 17:06:40 COVID-19, mRNA, LNP-S, PF, 30 mcg/0.3 mL dose 1 completed Not Available [facility] 03/03/2023 17:06:40 COVID-19, mRNA, LNP-S, PF, 30 mcg/0.3 mL dose 1 completed Not Available [facility] 03/03/2023 17:06:40 Influenza, high-dose, quadrivalent, PF 2 completed Not Available [facility] 03/03/2023 17:06:40 Influenza, high-dose, quadrivalent, PF 1 completed Not Available [facility] 03/03/2023 17:06:40 Pneumococcal conjugate PCV 13 0 completed Not Available [facility] 03/03/2023 17:06:40 Influenza, high-dose, quadrivalent, PF 0 completed Not Available [facility] 03/03/2023 17:06:40 Influenza, high-dose, trivalent, PF 9 completed Not Available [facility] 03/03/2023 17:06:40 Influenza, high-dose, trivalent, PF 8 completed Not Available [facility] 03/03/2023 17:06:40 Influenza, high-dose, trivalent, PF 7 completed Not Available [facility] 03/03/2023 17:06:40 Influenza, high-dose, trivalent, PF 6 completed Not Available [facility] 03/03/2023 17:06:40 Influenza, split virus, quadrivalent, PF 5 completed Not Available [facility] 03/03/2023 17:06:41 Influenza, split virus, trivalent, PF 4 completed Not Available [facility] 03/03/2023 17:06:41 Influenza, split virus, trivalent, preservative 3 completed Not Available [facility] 03/03/2023 17:06:41 Influenza, high-dose, quadrivalent, PF 3 completed Mahamed Richard MD [address] [place] [address], [phone], [facility] 08/07/2023 13:47:35 Past Encounters Encounter ID Performer Location Encounter Start Date Encounter Closed Date Diagnosis/Indication Diagnosis SNOMED-CT Code Diagnosis ICD10 Code Diagnosis Note [id number] [facility] [place] [place] Internal Med Carli quintero [address] [place] [address] [place] [address] [address] 01/14/2021 00:00:00 01/14/2021 22:01:41 [id number] [facility] Internal Med Carli quintero [address] [place] [address] [place] [address] [address] 05/20/2021 00:00:00 05/20/2021 20:47:09 [id number] [facility] Internal Med Carli quintero [address] [place] [address] [place] [address] 12/04/2021 00:00:00 12/27/2021 22:33:06 [id number] [facility] Internal [facility] Carli quintero [address] [place] [address] [id number] 04/09/2022 00:00:00 2022 20:22:51 [id number] [facility] Internal Med Carli quintero [address] [place] [address] [id number] 08/06/2022 00:00:00 08/07/2022 14:57:35 [id number] Mahamed Richard MD [facility] Internal [facility] Carli quintero [address] [place] [address] [place] [id number] 02/04/2023 10:48:44 02/04/2023 11:47:15 Dyslipidemia 565335292 E78.5 Essential hypertension 24753403 I10 Gout 85989300 M10.9 Screening for malignant neoplasm of prostate 109071347 Z12.5 Chronic at rial fibrillation 904988791 I48.20 Chronic back pain 090508 002 G89.29 [id number] Mahamed Richard MD [facility] Internal [facility] Carli quintero [address] [place] [address] [id number] 07/29/2023 10:45:53 07/29/2023 11:45:33 Administration of influenza vaccine 08329650 Z23 Chronic at rial fibrillation 640247119 I48.20 Dyslipidemia 447187648 E 78.5 Chronic back pain 466209 002 G89.29 Diverticular disease 397 256799 K57.90 Essential hypertension 04047369 I10 Gout 03787285 M10.9 Health Concerns Section Related Observation LastModified by Organization Detai ls LastModified Time None Recorded Concern Status LastModified by Organization Details LastModified Time None Recorded Advance Directives Directive Y: Payers Encounter Date Sequence Insurance Name Policy Number Policy Cavanaugh Covered Member ID Cavanaugh Member ID Guarantor Name 02/04/2023 1 [facility] (MEDICARE REPLACEMENT/A DVANTAGE - PPO) [id number] [place] [place] [id number] Jules [place] 07/29/2023 1 [facility] (MEDICARE REPLACEMENT/A DVANTAGE - PPO) [id number] Jules Gerberon [id number] Jules [place] Notes Date Note Type Note Provider Name and Address Organization Details Recorded Time 02/04/2023 text/html dyslipidemia [place] try to watch his dietgout no red hot swollen jointshypertension no chest pain or dizzinesschronic back pain stableAFib no headache dizziness or palpitations Mahamed Richard MD [address] [address], [place], [address], [employer] 02/04/2023 13:48:09 07/29/2023 text/html Dyslipidemia try ing to follow diet. AFib no palpitations chronic back pain stable diverticular disease could take more fiber hypertension no headache or dizziness. Gout no flare-ups. Mahamed Richard MD [address], [place], [address], [employer] 08/07/2023 13:47:39
--- OUTSIDE RECORDS SUMMARY | 2024-10-31 07:59 | XMS_ITS | Referral Summary ---
Author Organization [facility] [address] [place] [address] [address] [place] [address] Care Team Providers Care Advertising Account Manager Name Role Phone Mahamed Richard MD Primary Care Provider [phone] Encounters Date Type Department Care Team Description 08/31/2024 11:00 AM OVEN DUMPER Office Visit [facility] [address] [facility] [address] [place] [address] Cindy Ambrose NP Bradycardia (Primary Dx); History of syncope; At risk for sleep apnea; Hospital discharge follow-up from Last 3 Months Allergies No known active allergies Medications lisinopril-hydro CHLOROthiazide (ZESTORETIC) 20-25 mg per tablet 12/17/2020 Active simvastatin (ZOCOR) 40 mg tablet 12/17/2020 Active tamsulosin (FLOMAX) 0.4 mg extended release capsule 12/17/2020 Active allopurinoL (ZYLOPRIM) 300 mg tablet 12/17/2020 Active yrtelkvr-etc-BY- lycopen-lutein (Centrum Silver) 0.4-300-250 mg-mcg-mcg tablet Centrum [...] Diagnosed Date Nonrheumatic mitral valve regurgitation 11/21/19 Dizziness 11/21/2021 Chronic anticoagulation 01/20/2021 Atrial fibrillation (CMS/HCC) 01/20/2021 Dyslipidemia 01/20/2021 Essential hypertension 01/20/2021 Pain of upper extremity 11/08/2012 Social History Tobacco Use Types Packs/Day Years [...] on file Legal Sex Male 4:30 AM OVEN DUMPER Gender Identity Not on file Sexual Orientation Not on file Last Filed Vital Signs Vital Sign Reading Time Taken Comments Blood Pressure 110/60 08/31/2024 11:24 AM OVEN DUMPER Pulse 76 08/31/2024 11:24 AM OVEN DUMPER Temperature - - Respiratory Rate - - Oxygen Saturation 98% 08/31/2024 11:24 AM OVEN DUMPER Inhaled Oxygen Concentration - - Weight 84.9 kg (187 lb 1.6 oz) 08/31/2024 11:24 AM OVEN DUMPER Height 177.8 cm (5' 10 ) 08/31/2024 11:24 AM OVEN DUMPER Body Mass Index 26.85 08/31/2024 11:24 AM OVEN DUMPER Plan of Treatment Not on file Insurance [employer] MEDICARE Care Teams Advertising Account Manager Relationship Specialty Start Date End Date Mahamed Richard MD PCP - General Internal Medicine 01/08/21
--- OUTSIDE RECORDS SUMMARY | 2024-10-31 08:00 | XMS_ITS | Data Portability ---
Author Organization [facility] Address [address] [place] [place] [address] Care Team Providers Care Filling Technician Name Role Phone GANESH RICHARD Primary Care Provider IRMA Mendez Quality Reviewer Assessment Encounter Date Assessment Date Assessment LastModified by Organization Details LastModified Time 01/07/2024 01/07/2024 Continue current therapy blood work to evaluate his problems and efficacy of medication. He was told to stay up-to-date on tetanus RSV see COVID and flu shots he will follow-up with me in 4 months continue current therapy blood pressure good control [email or web address] Not available 01/08/2024 18:19:48 01/13/2024 01/13/2024 Prevnar 20 all else discussed [email or web address] Not available 01/13/2024 13:57:33 05/11/2024 05/11/2024 We will continue with current therapy diagnosis and assessment and plan have been discussed he will follow up with me in 4 months blood work at that time. [email or web address] Not available 05/11/2024 22:54:22 09/07/2024 09/07/2024 he needs a sleep study describes some apneic spells he has had pauses during sleep also AFib. Etiologies could be from the sleep apnea the beta-blockade has been taking care of with the discontinuation of nebivolol he has had thyroid studies I believe that were nondiagnostic. Could have some chronotropic incompetence. follow up 3 months [email or web address] Not available 10/02/2024 20:53:18 Plan of Treatment Reminders Order Date Submit Date Provider Last Modified By Organization Details Last Modified Time Details Appointments ANY 15 2024 10:00A M Ganesh Richard MD Not available Not available Not available Lab CMP, serum or plasma 2023 024 [facility], [address] [facility], [place], [address], 01/08/2024 10:11:43 CBC w/ auto diff 2023 024 [facility], [address] [facility], [place], [address], 01/08/2024 10:11:44 lipid panel, serum 2023 024 [facility], [address] [facility], [place], [address], 01/08/2024 10:11:44 Referral None recorded. Procedures polysomno graphyhyacinth (PROC) 2023 024 [email or web address] [facility], [address] [place], [address], 10/10/2024 15:53:29 Surgeries None recorded. Imaging None recorded. Medication Orders None recorded. Patient TargetsNo targets recorded. Patient Instructions Encounter Date Encounter Id Patient Instructions Last Modified By Organization Details Last Modified Time 01/13/2024 [id number] preventing falls : care instructions [email or web address] Not available 01/13/2024 13:57:45 Medicare Wellnes s Preventive Checklist [email or web address] Not available 01/13/2024 13:57:45 eating healthy foods: care instructions Not available 01/13/2024 13:57:45 09/07/2024 [id number] A healthy lifestyle: care instructions [email or web address] Not available 09/07/2024 12:58:07 Reason for Referral None Reported. Results Created Date Observation Date Name Description Value Unit Range Abnormal Flag Note LastModifiedBy Organization Detail LastModifiedTime 01/07/2001/08/2024 CMP14 glucose 97 mg/dL 70-99 Not Availabl e [facility] ([facility]) [address] [facility], [place], [address], 01/08/2024 10:11:43 01/07/2001/08/2024 CMP14 BUN 22 mg/dL 8-27 Not Available [facility] ([facility]) [address] [facility] [place], [address], 01/08/2024 10:11:43 01/07/20 24 01/08/2024 CMP14 creatinine 1.22 mg/dL 0.76-1 .27 Not Available [facility] ([facility]) [address] [facility], [place], [address], 01/08/2024 10:11:43 01/07/20 24 01/08/2024 CMP14 eGFR 58 mL/mi n/1.7 3 >59 below low normal Not Available [facility] ([facility]) [address] [facility], [place], [address], 01/08/2024 10:11:43 01/07/20 24 01/08/2024 CMP14 BUN/creatini ne ratio 18 10-24 Not Available [facility]) [address] [facility], [place], [address], 01/08/2024 10:11:43 01/07/20 24 01/08/2024 CMP14 sodium 142 mmol/ L 134-14 4 Not Available [facility] ([facility]) [address] [facility], [place], [address], 01/08/2024 10:11:43 01/07/20 24 01/08/2024 CMP14 potassium 4.7 mmol/ L 3.5-5. 2 Not Available [facility] ([facility]) [address] [facility] [place], [address], 01/08/2024 10:11:43 01/07/20 24 01/08/2024 CMP14 chloride 104 mmol/ L 96-106 Not Available [facility] ([facility]) [address] [facility] [place], [address], 01/08/2024 10:11:43 01/07/20 24 01/08/2024 CMP14 carbon dioxide, total 24 mmol/ L - Not Available [facility] ([facility]) [address] [facility] [place], [address], 01/08/2024 10:11:43 01/07/20 24 01/08/2024 CMP14 calcium 9.3 mg/dL 8.6-10 .2 Not Available [facility] ([facility]) [address] [facility] [place], [address], 01/08/2024 10:11:43 01/07/20 24 01/08/2024 CMP14 protein, total 6.4 g/dL 6.0-8. 5 Not Available [facility] ([facility]) [address] [place], [address], 01/08/2024 10:11:43 01/07/20 24 01/08/2024 CMP14 albumin 3.8 g/dL 3.7-4. 7 Not Available [facility] ([facility]) [address] [facility] [place], [address], 01/08/2024 10:11:43 01/07/20 24 01/08/2024 CMP14 globulin, total 2.6 g/dL 1.5-4. 5 Not Available [facility] ([facility]) [address] [facility] [place], [address], 01/08/2024 10:11:43 01/07/20 24 01/08/2024 CMP14 A/G ratio 1.5 1.2-2. 2 Not Available [facility] ([facility]) [address] [facility] [place], [address], 01/08/2024 10:11:43 01/07/20 24 01/08/2024 CMP14 bilirubin, total 0.5 mg/dL 0.0-1. 2 Not Available [facility] ([facility]) [address] [facility] [place], [address], 01/08/2024 10:11:43 01/07/20 24 01/08/2024 CMP14 alkaline phosphatase 92 IU/L 44-121 Not Available [facility] [address] [facility] [place], [address], 01/08/2024 10:11:43 01/07/20 24 01/08/2024 CMP14 AST (SGOT) 22 IU/L 0-40 Not Avail able [facility] ([facility]) [address] [facility] [place], [address], 01/08/2024 10:11:43 01/07/20 24 01/08/2024 CMP14 ALT (SGPT) 19 IU/L 0-44 Not Avail able [facility] ([facility]) [address] [facility] [place], [address], 01/08/2024 10:11:43 01/07/20 24 01/08/2024 LIPID PANEL cholesterol, total 144 mg/dL 100-19 9 Not Available [facility] ([facility]) [address] [facility] [place], [address], 01/08/2024 10:11:44 01/07/20 24 01/08/2024 LIPID PANEL triglyceride s 69 mg/dL 0-149 Not Available [facility]) [address] [facility] [place], [address], 01/08/2024 10:11:44 01/07/20 24 01/08/2024 LIPID PANEL HDL cholesterol 40 mg/dL >39 Not Available [facility]) [address] [facility] [place], [address], 01/08/2024 10:11:44 01/07/20 24 01/08/2024 LIPID PANEL VLDL cholesterol corrine 14 mg/dL 5-40 Not Available [facility]) [address] [facility] [place], [address], 01/08/2024 10:11:44 01/07/20 24 01/08/2024 LIPID PANEL LDL chol calc ([facility]) 90 mg/dL 0-99 Not Available [facility]) [address] [facility], [place], [address], 01/08/2024 10:11:44 01/07/20 24 01/08/2024 CBC WITH DIFFE RENTI AL/PL ATELE T WBC 10.4 x10e3 /uL 3.4-10 .8 Not Available [facility] ([facility]) [address] [facility], [place], [address], 01/08/2024 10:11:44 01/07/20 24 01/08/2024 CBC WITH DIFFE RENTI AL/PL ATELE T RBC 4.21 x10e6 /uL 4.14-5 .80 Not Available [facility] ([facility]) [address] [facility], [place], [address], 01/08/2024 10:11:44 01/07/20 24 01/08/2024 CBC WITH DIFFE RENTI AL/PL ATELE T hemoglobin 12.6 g/dL 13.0-1 7.7 below low normal Not Available [facility] ([facility]) [address] [facility], [place], [address], 01/08/2024 10:11:44 01/07/20 24 01/08/2024 CBC WITH DIFFE RENTI AL/PL ATELE T hematocrit 39.1 % 37.5-5 1.0 Not Available [facility] ([facility]) [address] [place], [address], 01/08/2024 10:11:44 01/07/20 24 01/08/2024 CBC WITH DIFFE RENTI AL/PL ATELE T MCV 93 fL 79-97 Not Available [facility] ([facility]) [address] [place], [address], 01/08/2024 10:11:44 01/07/20 24 01/08/2024 CBC WITH DIFFE RENTI AL/PL ATELE T MCH 29.9 pg 26.6-3 3.0 Not Available [facility] ([facility]) [address] [facility], [place], [address], 01/08/2024 10:11:44 01/07/20 24 01/08/2024 CBC WITH DIFFE RENTI AL/PL ATELE T MCHC 32.2 g/dL 31.5-3 5.7 Not Available [facility] ([facility]) [address] [facility], [place], [address], 01/08/2024 10:11:44 01/07/20 24 01/08/2024 CBC WITH DIFFE RENTI AL/PL ATELE T RDW 12.4 % 11.6-1 5.4 Not Available [facility] ([facility]) [address] [facility], [place], [address], 01/08/2024 10:11:44 01/07/20 24 01/08/2024 CBC WITH DIFFE RENTI AL/PL ATELE T platelets 389 x10e3 /uL 150-45 0 Not Available [facility] ([facility]) [address] [facility], [place], [address], 01/08/2024 10:11:44 01/07/20 24 01/08/2024 CBC WITH DIFFE RENTI AL/PL ATELE T neutrophils 73 % notest ab. Not Available [facility] ([facility]) [address] [place], [address], 01/08/2024 10:11:44 01/07/20 24 01/08/2024 CBC WITH DIFFE RENTI AL/PL ATELE T lymphs 19 % notest ab. Not Available [facility] ([facility]) [address] [place], [address], 01/08/2024 10:11:44 01/07/20 24 01/08/2024 CBC WITH DIFFE RENTI AL/PL ATELE T monocytes 5 % notest ab. Not Available [facility] ([facility]) [address] [facility], [place], [address], 01/08/2024 10:11:44 01/07/20 24 01/08/2024 CBC WITH DIFFE RENTI AL/PL ATELE T eos 1 % notest ab. Not Available [facility] ([facility]) [address] [facility], [place], [address], 01/08/2024 10:11:44 01/07/20 24 01/08/2024 CBC WITH DIFFE RENTI AL/PL ATELE T basos 1 % notest ab. Not Available [facility] ([facility]) [address] [facility], [place], [address], 01/08/2024 10:11:44 01/07/20 24 01/08/2024 CBC WITH DIFFE RENTI AL/PL ATELE T neutrophils (absolute) 7.6 x10e3 /uL 1.4-7. 0 above high normal Not Available [facility] ([facility]) [address] [facility], [place], [address], 01/08/2024 10:11:44 01/07/20 24 01/08/2024 CBC WITH DIFFE RENTI AL/PL ATELE T lymphs (absolute) 2.0 x10e3 /uL 0.7-3. 1 Not Available [facility] ([facility]) [address] [facility], [place], [address], 01/08/2024 10:11:44 01/07/20 24 01/08/2024 CBC WITH DIFFE RENTI AL/PL ATELE T monocytes(ab solute) 0.5 x10e3 /uL 0.1-0. 9 Not Available [facility] ([facility]) [address] [facility], [place], [address], 01/08/2024 10:11:44 01/07/20 24 01/08/2024 CBC WITH DIFFE RENTI AL/PL ATELE T eos (absolute) 0.1 x10e3 /uL 0.0-0. 4 Not Available [facility] ([facility]) [address] [facility], [place], [address], 01/08/2024 10:11:44 01/07/20 24 01/08/2024 CBC WITH DIFFE RENTI AL/PL ATELE T baso (absolute) 0.1 x10e3 /uL 0.0-0. 2 Not Available [facility] ([facility]) [address] [facility], [place], [address], 01/08/2024 10:11:44 01/07/20 24 01/08/2024 CBC WITH DIFFE RENTI AL/PL ATELE T immature granulocytes 1 % notest ab. Not Available [facility] ([facility]) [address] [facility], [place], [address], 01/08/2024 10:11:44 01/07/20 24 01/08/2024 CBC WITH DIFFE RENTI AL/PL ATELE T immature grans (abs) 0.1 x10e3 /uL 0.0-0. 1 Not Available [facility] ([facility]) [address] [facility], [place], [address], 01/08/2024 10:11:44 01/06/20 24 12/27/2022 colon oscop y scree george (PROC ) No observ ation record ed. [facility] Not Available 2023 16:45:38 06/29/20 24 06/29/2024 US, doppl er, venou s No observ ation record ed. [email or web address] [place] [id number] [facility] [address], [place], [address], 07/09/2024 21:58:41 07/10/20 24 07/10/2024 CT, brain , w/o contr ast No observ ation record ed. [email or web address] [facility] [address] [facility] [address], [place], [address], 07/11/2024 12:29:15 07/10/2007/10/2024 XR, chest , 2 view No observ ation record ed. [address], [place], [address], 07/11/2024 12:29:27 07/10/2007/10/2024 XR, lumba r spine , 2 view No observ ation record ed. [address], [place], [address], 07/11/2024 12:29:40 07/10/2007/10/2024 CT, lumba r spine , w/o contr ast No observ ation record ed. [address], [place], [address], 07/13/2024 11:42:23 07/11/2007/11/2024 CT, angio gram, head, w/ contr ast No observ ation record ed. [address], [place], [address], 07/14/2024 15:31:40 07/12/2007/12/2024 MRI, brain , w/o contr ast No observ ation record ed. [address], [place], [address], 07/14/2024 15:28:55 07/12/2007/12/2024 , echo ardio gram No observ ation record ed. [address], [place], [address], 07/14/2024 15:29:15 07/13/2007/13/2024 MRI, lumba r spine , w/o contr ast No observ ation record ed. [address], [place], [address], 07/14/2024 15:29:39 07/13/20 24 07/11/2024 elect beverly ephal ogram No observ ation record ed. [facility] [address], [place], [address], 07/14/2024 15:30:28 07/27/20 24 07/27/2024 marilu r monit or No observ ation record ed. [facility] [address], [place], [address], 08/02/2024 16:18:51 Result Notes None recorded. 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 Active 2023 Ganesh Richard MD Attn: Maribel workman,[address] [facility], [place], [address], [place] [facility] 4 18:18:42 Gout 79022529 Active 2023 Ganesh Richard MD Attn: Maribel workman,[address] [place], [address], [place] [facility] 4 18:18:46 Chronic low back pain 475976841 Active 2023 Ganesh Richard MD Attn: Maribel workman,[address] [facility], [place], [address], [place] [facility] 4 18:18:47 Benign prostatic hyperplasia without outflow obstruction 343800661 Active 2023 Ganesh Richard MD Attn: Maribel workman,[address] [place], [address], [place] [facility] 4 18:18:49 Hyperlipidemia 73505467 Active 2023 Ganesh Richard MD Attn: Maribel workman,[address] [facility], [place], [address], [place] - [facility] 4 18:18:52 Chronic diastolic heart failure 764932027 Active 2024 Ganesh Richard MD Attn: Maribel workman,[address], [place], [address], [place] [facility] 5 20:49:50 Sleep disorder 22565927 Active 2024 Ganesh Richard MD Attn: Maribel workman,[address] [facility], [place], [address], [place] [facility] 5 20:53:31 Problem Notes None recorded. Procedures Surgical History Date Name Laterality Status Provider Name and Address Organization Details Recorded Time Eye Surgery completed She De Leon MA [place] - [facility] 01/07/2024 11:30:13 Imaging Results Imaging Date Name Status LastModified by Organization Details LastModified Time 12/27/2022 colonoscopy screenin ji (PROC) completed [facility] Information not available 01/06/2024 16:45:38 06/29/2024 US, doppler, venous completed [address], [address], 07/09/2024 21:58:41 07/10/2024 CT, brain, w/o contrast completed [address], [address], 07/11/2024 12:29:15 07/10/2024 XR, chest, 2 view completed [address], [address], 07/11/2024 12:29:27 07/10/2024 XR, lumbar spine, 2 view completed [address], [address], 07/11/2024 12:29:40 07/10/2024 CT, lumbar spine, w/ o contrast completed [address], [address], 07/13/2024 11:42:23 07/11/2024 CT, angiogram, head, w/ contrast completed [address], [place], [address], 07/14/2024 15:31:40 07/12/2024 MRI, brain, w/o contrast completed [address], [place], [address], 07/14/2024 15:28:55 07/12/2024 US, echocardiogram completed [address], [place], [address], 07/14/2024 15:29:15 07/13/2024 MRI, lumbar spine, w /o contrast completed [address], [place], [address], 07/14/2024 15:29:39 07/11/2024 electroencephalogram completed [address], [place], [address], 07/14/2024 15:30:28 07/27/2024 holter monitor completed [facility] [address] [facility] [address], [place], [address], 08/02/2024 16:18:51 Procedure Notes None recorded. Medical Equipment None Reported. Allergies No known drug allergies Medications Name Sig Start Date Stop Date Status Note LastModified by Organization Details LastModified Time hydrocodone 5 mg-acetamino phen 325 mg tablet TAKE 1 TABLET BY MOUTH EVERY 4 HOURS NEEDED FOR PAIN RATED 4-6 active Not Available Not Available No t Available sulfamethoxa zole 800 mg-trimethop rim 160 mg tablet TAKE 1 TABLET BY MOUTH TWICE A DAY 09/07 completed Not Available Not Available Not Available simvastatin 40 mg tablet TAKE 1 TABLET BY MOUTH EVERY DAY 2023 active Not Available Not Available Not Avai lable tamsulosin 0.4 mg capsule TAKE 1 CAPSULE BY MOUTH EVERY DAY 2023 active Not Available Not Available Not Avai lable lisinopril 20 mg-hydrochlo rothiazide 25 mg tablet TAKE 1 TABLET BY MOUTH EVERY DAY 2023 active Not Available Not Available Not Avai lable allopurinol 300 mg tablet TAKE 1 TABLET BY MOUTH EVERY DAY 2023 active Not Available Not Available Not Avai lable furosemide 20 mg tablet TAKE 1 TABLET (20 MG TOTAL) BY MOUTH DAILY NEEDED (SWELLIN G). active Not Available Not Available No t Available amoxicillin 875 mg-potassium clavulanate 125 mg tablet TAKE 1 TABLET BY MOUTH TWICE DAILY 01/06 completed Not Available Not Available Not Available nebivolol 10 mg tablet TAKE 1 TABLET BY MOUTH EVERY DAY 2023 active Not Available Not Available Not Avai lable Xarelto 20 mg tablet TAKE 1 TABLET BY MOUTH EVERY DAY active Not Available Not Available No t Available Vitals Date Recorded Respiratory rate Oxygen saturation Oxygen saturation in Arterial blood by Pulse oximetry Heart rate Body height Body mass index (BMI) Body weight Systolic blood pressure Diastolic blood pressure Provider Name and Address Organization Details Last Updated DateTime 4 20 /min 97 % 97 % 57 /min 177.8 cm 26.2 kg/m2 19025.3 3 g 116 mm[Hg] 62 mm[Hg] Iva Rebollar MA [facility] 4 11:38:56 Date Recorded Body height Body mass index (BMI) Body weight Oxygen saturation Oxygen saturation in Arterial blood by Pulse oximetry Heart rate Systolic blood pressure Diastolic blood pressure Provider Name and Address Organization Details Last Updated DateTime 4 177.8 cm 26.1 kg/m2 49299.8 1 g 98 % 98 % 71 /min 118 mm[Hg] 62 mm[Hg] She De Leon MA [facility] 4 11:47:45 Date Recorded Pain severity - 0-10 verbal numeric rating [Score] - Reported Provider Name and Address Organization Details Last Updated DateTime 01/13/2024 Julien Overton [facility] 01/13/2024 11:50:00 Date Recorded Body height Body mass index (BMI) Body weight Heart rate Oxygen saturation Oxygen saturation in Arterial blood by Pulse oximetry Systolic blood pressure Diastolic blood pressure Provider Name and Address Organization Details Last Updated DateTime 4 177.8 cm 26.8 kg/m2 37789.7 7 g 67 /min 99 % 99 % 122 mm[Hg] 64 mm[Hg] Krystle Cash MA [facility] 4 11:33:17 Date Recorded Body height Body mass index (BMI) Body weight Heart rate Oxygen saturation Oxygen saturation in Arterial blood by Pulse oximetry Systolic blood pressure Diastolic blood pressure Provider Name and Address Organization Details Last Updated DateTime 4 177.8 cm 26.5 kg/m2 36303.7 9 g 70 /min 99 % 99 % 110 mm[Hg] 60 mm[Hg] Jackeline Murray MA [facility] 4 11:30:09 Social History Question Answer Notes LastModified by Organizat ion Details LastModified Time Tobacco Smoking Status Never Smoker She De Leon MA [facility] 01/07/2024 11:28:47 Do You Have An Advance Directive? Yes Information not available 01/07/2024 What Is Your Level Of Alcohol Consumption? None Information not available 01/07/2024 Are You Blind Or Do You Have Difficulty Seeing? No GLASSES Information not available 01/07/2024 What Is Your Level Of Caffeine Consumption? Moderate Information not available 01/07/2024 In The 14 Days Before Symptom Onset, Have You Had Close Contact With A Laboratory-confir med COVID-19 While That Case Was Ill? No Information not available 01/07/2024 In The 14 Days Before Symptom Onset, Have You Had Close Contact With A Person Who Is Under Investigation For COVID-19 While That Person Was Ill? No Information not available 01/07/2024 Have You Been To An Area Known To Be High Risk For COVID-19? No Information not available 01/07/2024 Are You Currently Employed? 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 REGULAR Information not available 01/07/2024 What Is The Highest Grade Or Level Of School You Have Completed Or The Highest Degree You Have Received? [id number] Information not available 01/13/2024 Are There Any Guns Present In Your Home? Yes Information not available 01/13/2024 In The Past 7 Days, How Many Days Did You Exercise? 0 Information not available 01/13/2024 In The Past 7 Days, How Much Pain Have You [place]? Some Information not available 01/13/2024 In General, Would You Say You Health Is: Good Information not available 01/13/2024 How Would You Describe The Condition Of Your Mouth And Teeth- Including False Teeth Or Dentures? Fair Some Dentures Information not available 01/13/2024 Each Night, How Many Hours Of Sleep Do You Get? 8 Information no t available 01/13/2024 Has Anyone Ever Told You That You Snore? Yes Information not available 01/13/2024 In The Past 7 Days, How Often Have You [place] Sleepy In The Daytime? Sometimes Information not available 01/13/2024 # Alcohol Drinks Per Week 0 Information not available 01/13/2024 What Was The Date Of Your Most Recent Tobacco Screening? 09/07/2024 [email or web address] Information not available 09/07/2024 What Is Your Relationship Status? Information not available 01/07/2024 Do You Use Your Seat Belt Or Car Seat Routinely? Yes Information not available 01/07/2024 Do You Have Smoke And Carbon Monoxide Detectors In Your Home? Yes Information not available 01/07/2024 Do You Feel Stressed (tense, Restless, Nervous, Or Anxious, Or Unable To Sleep At Night)? [id number] Information not available 01/07/2024 Do You Use Any Illicit Or Recreational Drugs? No Information not available 01/07/2024 Do You Use Sunscreen Routinely? No Information not available 01/07/2024 Has Tobacco Cessation Counseling Been Provided? No Information not available 01/07/2024 Do You Or Have You Ever Used Any Other Forms Of Tobacco Or Nicotine? No Information not available 01/07/2024 Sex: Male Functional Status Question Answer Note LastModified by Organization D etails LastModified Time Are you able to care for yourself? Yes Information n ot available 01/07/2024 What is your exercise level? None Information not available 01/07/2024 Mental Status None recorded. Family History Nothing Reported. Medical History Condition Response Coronary Artery Disease N Other N Atrial Fibrillation N High Blood Pressure Y Depression N COPD N Blood Clots N Anxiety Disorder N Muscle, Joint, or Bone Problems N Acid Reflux (GERD) N Cancer N Stroke N High Cholesterol Y Liver Disease N Headaches N Kidney or Bladder Problems N Thyroid Problems N GI Problems N Skin Problems N Anemia N Heart Attack ([place]) N Diabetes N Seizures/Epilepsy N Asthma N Allergies N Hepatitis N Heart Failure N Osteoporosis N Immunizations Vaccine Type Date Status Note Provider Nam e and Address Organization Details Recorded Time zoster recombinant 3 completed Antonia [place], [place] [facility] 01/12/2024 15:56:39 Influenza, high-dose, quadrivalent, PF 2 completed [place] [facility] 01/12/2024 15:56:39 Influenza, high-dose, quadrivalent, PF 0 completed [place] [facility] 01/12/2024 15:56:39 Influenza, high-dose, quadrivalent, PF 3 completed [place] [facility] 01/12/2024 15:56:39 Influenza, high-dose, quadrivalent, PF 1 completed [place] [facility] 01/12/2024 15:56:39 COVID-19, mRNA, LNP-S, PF, 30 mcg/0.3 mL dose 1 completed [place] [facility] 01/12/2024 15:56:39 COVID-19, mRNA, LNP-S, PF, 30 mcg/0.3 mL dose 1 completed [place] [facility] 01/12/2024 15:56:39 COVID-19, mRNA, LNP-S, PF, 30 mcg/0.3 mL dose 1 completed [place] [facility] 01/12/2024 15:56:39 COVID-19, mRNA, LNP-S, PF, 30 mcg/0.3 mL dose 1 completed [place] [facility] 01/12/2024 15:56:39 COVID-19, mRNA, LNP-S, PF, holly-sucrose, 30 mcg/0.3 mL 3 completed [place] [facility] 01/12/2024 15:56:39 Pneumococcal conjugate PCV 13 0 completed [place] [facility] 01/12/2024 15:56:39 Influenza, high-dose, trivalent, PF 8 completed [place] [facility] 01/12/2024 15:56:39 Influenza, high-dose, trivalent, PF 7 completed [place] [facility] 01/12/2024 15:56:39 Influenza, high-dose, trivalent, PF 6 completed [place] [facility] 01/12/2024 15:56:39 Influenza, high-dose, trivalent, PF 9 completed [place] [facility] 01/12/2024 15:56:39 Influenza, split virus, trivalent, preservative 3 completed [place] [facility] 01/12/2024 15:56:39 Influenza, split virus, trivalent, PF 4 completed [place] [facility] 01/12/2024 15:56:39 Influenza, split virus, quadrivalent, PF 5 completed [place] [facility] 01/12/2024 15:56:39 Pneumococcal conjugate PCV20, polysaccharide [id number] conjugate, adjuvant, PF 4 completed Ganesh Richard MD Attn: Accounting[address] [place], [address], [place] [facility] 01/13/2024 13:57:07 Past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
--- NOTE | 2024-11-03 17:39 | WPDSLEEPSTUD ---
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 Sleep History Gera Cruz is an 84-year-old man with Holter monitoring showing pauses and a history of syncopal events. He has atrial fibrillation which is rate controlled, and he is anticoagulated. He also has has chronic diastolic heart failure. He never wakes at night with heartburn, belching or coughing.??He occasion snores. He never has trouble sleeping when he has a cold. He never wakes up gasping for breath during the night. He he occasionally has breathing problems at night. He never sweats excessively at night. He never notices his heart pounding or beating irregularly during the night. He frequently falls asleep during the day. He frequently falls asleep involuntarily, although never falls asleep while driving. He never experiences loss of muscle tone with strong emotion. He she never has daytime difficulty at work due to excessive sleepiness. He never feels paralyzed on waking or falling asleep. He never experiences vivid dreams upon waking or falling asleep. He never feels afraid of going to sleep. He screams at times during the night. He does not recalls his dreams. He frequently has thoughts racing through his mind. He never feels sad or depressed. He never feels anxiety. He never notices parts of his body jerk. He never kicks during the night. He never feels crawling or aching feelings in his legs. He occasionally feels leg pain at night. He never has morning jaw pain, never grinds his teeth at night. He constant feels bothered by pain in his head and back during the day, never awakened by pain during the night. He constantly wakes up feeling stiff in the morning, and he constantly wakes feeling sore or achy. He constantly awakens with pain in his neck, spine, or joints. He has fatigue, dizziness, headaches, and memory problems. He is usually drowsy for an hour after waking. Normal bedtime is 11:30 p.m., falling asleep within 15 minutes, waking for times at night to go to the bathroom. He typically gets between 8 and 10 hours of sleep per night. His wake up time is between 8:00 a.m. and 9:00 a.m.. He maintains the same schedule on weekends. He takes naps in the day, however he is not refreshed after a short 10-15 minute nap. 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 Patient denies any known history of CVA or symptoms. Chronic anticoagulation Paroxysmal atrial fibrillation Essential hypertension Surgical History Surgical History Status post open reduction with internal fixation of fracture Right tibia Hx of cholecystectomy History of colonoscopy with polypectomy (2020) Status post cataract extraction of both eyes with insertion of intraocular lens Family History Family History Mother Cerebrovascular accident Social History Social History Social History: The patient lives at home with his of 62 years. They raised 3 daughters. The patient still drives. 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 He is a lifelong nonsmoker and does not drink alcohol. Code status: DNR/DNI (the patient states that if he were in a pre arrest situation with a cardiac arrhythmia he would be okay with external pacing or medications to keep his heart rate up however if his heart actually stopped he would not want extraordinary measures with CPR or ventilator support.) Surrogate decision maker: Mary Blank () Smoking status: Never smoker Alcohol intake: never Substance use: never Do You Feel Safe in your Home?: Yes Lack of Transportation: No Lack of Food: Never True Current Housing: I Have Housing Concerned About Future Housing: No Difficulty Paying Gas/Electric Bills: No Difficulty Paying for Meds: No Currently Unemployed: No Education: Bachelor's Degree Difficulty w/ Childcare or Family Care: No Living arrangements: with family Gender identity (if verbalized by the patient): Male Spiritual care concerns: No Medications Home Medications ?Medication ?Instructions ?Recorded ?Confirmed ?Type Adult One Daily Multivitamin 1 tablet PO DAILY 12/13/20 07/10/24 History simvastatin 40 mg tablet 40 mg PO DAILY 12/13/20 07/10/24 History tamsulosin 0.4 mg capsule 0.4 mg PO DAILY 12/13/20 07/10/24 History allopurinol 300 mg tablet 300 mg PO DAILY 07/10/24 07/10/24 History lisinopril 20 1 tablet PO DAILY 07/10/24 07/10/24 History mg-hydrochlorothiazide 25 mg tablet rivaroxaban 20 mg tablet (Xarelto) 20 mg PO DAILY 07/10/24 07/10/24 History hydrocodone 5 mg-acetaminophen 325 1 tablet PO Q4H PRN Pain Rated 4-6 07/14/24 Rx mg tablet #30 tabs Sleep Procedure A split night polysomnogram using the Balanced multi-channel system recorded the standard physiologic parameters including EEG, EOG, submentalis EMG, anterior tibialis EMG, EKG, body position, nasal and oral airflow using nasal pressure sensor and thermistor. Respiratory parameters of chest and abdominal movements were recorded with Respiratory Inductance Plethysmography belts. Oxygen saturation was recorded by pulse oximetry. Video monitoring was also performed. Sleep stages, periodic limb movements, and EEG arousals were scored in 30 second epochs according to the criteria of the AASM Scoring Manual. The Apnea-Hypopnea Index was calculated using CMS guidelines for definition of hypopnea while scoring respiratory events. He came to the He took no sleep aid at the beginning of the study. After the baseline portion the patient met criteria for a titration with an AHI of 49.7 and desaturation to 74%. Masks attempted included the medium ResMed AirFit F20 fullface mask due to his mouth breathing but he had a very high mask leak. Next, an AirFit F30 I fullface mask was attempted but was uncomfortable. It also produced a high leak. He used a [employer] Solo nasal mask with a chin strap. The last mask attemtpted was the Mirage Quattro full face mask. Pressures attempted included 5 cm, 6 cm with EPR 2 cm, 7 cm with 2 EPR, switched to BiPAP 8/4, 9/4, 10/4, 11/5, and the last pressure 12/6 with increasing treatment emergent centrals. His sleep was fragmented during the baseline. This was much worse during the titration with long episodes of wake. This caused low sleep efficiencies at many settings. Due to low amounts of sleep, the titration was challenging, and no optimal pressure was identified. Sleep Architecture During the diagnostic portion of the study, the total recording time was 210.8 minutes. The total sleep time was 134.0 minutes. Sleep latency was 48.8 minutes. REM latency was 87.5 minutes. Sleep Efficiency was 63.6%. The patient had 16 awakenings for an awakening index of 7.2. Wake after sleep onset time was 28.0 minutes. The patient spent 8.5 minutes, 6.3% of total sleep time in Stage N1. The patient spent 115.0 minutes, 85.8% in Stage N2. The patient spent 0.0 minutes, 0.0% in Stage N3. The patient spent 10.5 minutes, 7.8% in Stage REM sleep. At 01:48:58 AM the patient was placed on PAP treatment and was titrated at pressures ranging from CPAP 5 cm, increased to CPAP 6 with 2 cm EPR, CPAP 7 with 2 cm EPR, switching to BiPAP 8/4, 9/4, 10/4, 11/5, and the last pressure 12/6. During the treatment portion of the study, the total recording time was 301.4 minutes. The total sleep time was 122.0 minutes. Sleep latency was 40.5 minutes. REM latency was 193.0 minutes. Sleep Efficiency was 40.5%. Wake after Sleep Onset time was 138.5 minutes. The patient spent 27.0 minutes, 22.1% of total sleep time in Stage N1. The patient spent 80.0 minutes, 65.6% in Stage N2. The patient spent 2.0 minutes, 1.6% in Stage N3. The patient spent 13.0 minutes, 10.7% in Stage REM. Respiratory Analysis During the diagnostic portion of the study, the patient had 16 hypopneas, 91 obstructive apneas, 2 mixed apneas, and 2 central apneas for an overall Apnea Hypopnea Index of 49.7 events per hour. The REM Apnea Hypopnea Index was 17.1. The NREM Apnea Hypopnea Index was 52.5. The patient had a Central Apnea Hypopnea Index of 0.9. There were no Respiratory Effort Related Arousals. The Respiratory Disturbance Index is 56.0 events per hour. There was no evidence of Bao-Dinh respirations on the baseline portion. During the treatment portion of the study, the patient had no hypopneas, 7 obstructive apneas, 49 mixed apneas, and 52 central apneas for an overall Apnea Hypopnea Index of 53.1 events per hour. The REM Apnea Hypopnea Index was 23.1. The NREM Apnea Hypopnea Index was 56.7. The patient had a Central Apnea Hypopnea Index of 25.6. There were no Respiratory Effort Related Arousals.The Respiratory Disturbance Index is 53.1 events per hour. Bao-Dinh Respirations were seen on the titration with the development of central apneas. Arousals During the diagnostic portion of the study, there were a total of 112 arousals for an arousal index of 50.1. There were 52 respiratory arousals for an index of 23.3. There were 42 periodic limb movement arousals for an index of 18.8. There were 5 isolated limb movement arousals for an index of 2.2. There were 13 spontaneous arousals for an index of 5.8. During the treatment portion of the study, there were a total of 94 arousals for an index of 46.2. There were 41 respiratory arousals for an index of 20.2. There were no periodic limb movement arousals. There was 1 isolated limb movement arousal for an index of 0.5. There were 52 spontaneous arousals for an index of 25.6. Periodic Limb Movements During the diagnostic portion of the study, the patient had 19 isolated limb movements with an index of 8.5. The patient had 123 periodic limb movements with an index of 55.1. The patient had a total of 142 limb movements with a total limb movement index of 63.6. During the treatment portion of the study, the patient had 2 isolated limb movements with an index of 1.0. The patient had no periodic limb movements during the titration. The patient had a total of 2 limb movements with a total limb movement index of 1.0. Oximetry Data During the diagnostic portion of the study, the patient had an average oxygen saturation of 97% in wake with a minimum oxygen saturation of 70% and a maximum oxygen saturation of 100%. The patient had an average oxygen saturation of 96.3% in sleep with a minimum oxygen saturation of 74% and a maximum oxygen saturation of 100%. The patient had 91 oxygen desaturations resulting in an Oxygen Desaturation Index of 40.7. The patient spent 10.6] minutes, 5.4% of total sleep time with an oxygen saturation less than 88%. During the treatment portion of the study, the patient had an average oxygen saturation of 98.3% in wake with a minimum oxygen saturation of 66% and a maximum oxygen saturation of 100%. The patient had an average oxygen saturation of 97.5% in sleep with a minimum oxygen saturation of 74% and a maximum oxygen saturation of 100%. The patient had 54 oxygen desaturations resulting in an Oxygen Desaturation Index of 26.6. The patient spent 6.5 minutes, 2.3% of total sleep time with an oxygen saturation less than 88%. Snoring Profile Snoring was mild, eliminated during the titration. Cardiac Profile During the diagnostic portion of the study, the EKG showed atrial fibrillation with frequent PVCs, average pulse rate was 65 bpm, minimum pulse rate was 38 bpm, maximum pulse rate was 87 bpm. No arrhythmias noted. During the treatment portion of the study, the EKG showed atrial fibrillation with frequent PVCs, average pulse rate was 59 bpm, minimum pulse rate was 39 bpm, maximum pulse rate was 155 bpm. No arrhythmias noted. EEG Profile EEG was unremarkable, no evidence of seizures. Assessment and Plan Assessment and Plan (1) Obstructive sleep apnea: Code(s): G47.33 - Obstructive sleep apnea (adult) (pediatric) Status: Acute Assessment and Plan: This split night sleep study on 10/31/2024 shows severe obstructive sleep apnea, the obstructive apnea-hypopnea index is 49.7 with mainly obstructive events, desaturation to 74%, 10.6 minutes or 5.4% of the baseline spent below 88% saturation. The patient had treatment emergent central apneas during this titration possibly due to excessive pressure during the titration. The central apnea index was 0.9 on the baseline, and during the titration, the central apnea index was 25.9, much higher. The tech followed acceptable protocols however this did seem to precipitate central apneas at most pressures. I recommend a full night titration in the sleep lab starting with CPAP, progressing to BiPAP if appropriate, then BiPAP with a backup rate if appropriate. The patient absolutely needs to have a sleep aid available to use, if needed. on this study, he had a long sleep latency, 48 minutes. He had poor sleep efficiency at 63% on the baseline. During the titration, he had long episodes of wakefulness causing difficulties achieving adequate titration. At some pressures, the patient had fewer than 20 minutes of sleep. The patient needs to be instructed to take no nap on the day preceding the titration. (2) Treatment-emergent central sleep apnea: Code(s): G47.39 - Other sleep apnea Status: Acute Assessment and Plan: Patient has central apnea index of 0.9 on baseline, increased to 25.9 during the titration. His risk factors for central events include congestive heart failure, history of a stroke and medication list shows hydrocodone acetaminophen. During his full night titration, he may be able to tolerate positive pressure without developing as many central apneas. Treatment emergent central apneas can be treated with CPAP, BiPAP +/- a back up rate, or ASV. His EF is 65% in June,. This is high enough to make him a candidate for ASV if needed. The cycle length was 75 seconds and the circulation time was 40.7 seconds (3) Bao-Dinh breathing: Code(s): R06.3 - Periodic breathing Status: Acute Assessment and Plan: He had mild Bao-Dinh breathing during the titration with the commencement of treatment-emergent central apneas. Bao-Dinh breathing refers to a pattern seen in central sleep apnea especially patients with heart failure, strokes, alcohol dependence her opioid use characterized by cyclic changes in tidal volume followed by central apneas. (4) Atrial fibrillation: Code(s): I48.91 - Unspecified atrial fibrillation Status: Acute Assessment and Plan: This patient had a cardiac rhythm showing atrial fibrillation and at times atrial flutter with a variable block. Heart rate generally was in the 60s. There were scattered PVCs. The patient has a known diagnosis of atrial fibrillation. Data The data obtained during this sleep study is adequate for interpretation. Certification This sleep study has been reviewed by a board certified sleep medicine physician.
[2024-11-09 17:20] VITALS: BMI 25.5
== END 2024-11-01 07:25 | disposition home or self-care (01) ==
LOC: ANHCSM 07:55
PROVIDERS: PCP Internal Medicine; Visit Provider Internal Medicine
DX: G47.33 Obstructive sleep apnea (adult) (pediatric) (principal); G47.39 Other sleep apnea; I48.91 Unspecified atrial fibrillation
CPT/HCPCS: 95811

== ENCOUNTER 2025-01-03 07:59 | Outpatient (CLI) | payer MEDICARE, SELFPAY ==
--- OUTSIDE RECORDS SUMMARY | 2025-01-03 08:05 | XMS_ITS | Data Portability ---
Author Organization [place] [employer] Main Office Address [address] [place] [address] Assessment Encounter Date Assessment Date Assessment LastModified by Organization Details LastModified Time 02/04/2023 02/04/2023 Blood work diagnosis in assessment plan have been discussed we will continue current therapy and see me in 6 months [email or web address] Not available 02/04/2023 13:47:49 07/29/2023 07/29/2023 Will continue current therapy flu shot today diagnosis in the assessment and plan have been discussed all questions have been answered follow-up in 4 months [email or web address] Not available 08/07/2023 13:47:20 Plan of Treatment [...] screen 3.51 NG/mL 0.00-4 .00 Not Available [facility] (Lab) [address] [facility] [place], [address], 12/04/2021 13:37:11 12/05/19 22 12/04/2021 CBC/C OMPLE TE BLD COUNT W/DIF F white blood cells 8.0 x10'3 /uL 4.2-10 .8 Not Available [facility] (Lab) [address] [place], [address], 12/04/2021 13:14:29 12/05/19 22 12/04/2021 CBC/C OMPLE TE BLD COUNT W/DIF F red blood cells 4.64 x10'6 /uL 4.10-5 .80 Not Available [facility] (Lab) [address] [place], [address], 12/04/2021 13:14:29 12/05/19 22 12/04/2021 CBC/C OMPLE TE BLD COUNT W/DIF F hemoglobin 14.4 g/dL 13.2-1 7.0 Not Available [facility] (Lab) [address] [place], [address], 12/04/2021 13:14:29 12/05/19 22 12/04/2021 CBC/C OMPLE TE BLD COUNT W/DIF F hematocrit 45.1 % 39.3-5 0.0 Not Available [facility] (Lab) [address] [place], [address], 12/04/2021 13:14:29 12/05/19 22 12/04/2021 CBC/C OMPLE TE BLD COUNT W/DIF F mean red cell volume 97.2 fL 80.0-9 7.0 high Not Available [facility] (Lab) [address] [place], [address], 12/04/2021 13:14:29 12/05/19 22 12/04/2021 CBC/C OMPLE TE BLD COUNT W/DIF F mean red cell hemoglobin 31.0 pg 27.0-3 3.0 Not Available [facility] (Lab) [address] [place], [address], 12/04/2021 13:14:29 12/05/19 22 12/04/2021 CBC/C OMPLE TE BLD COUNT W/DIF F mean RBC HGB concentratio n 31.9 g/dL 31.0-3 6.0 Not Available [facility] (Lab) [address] [place], [address], 12/04/2021 13:14:29 12/05/19 22 12/04/2021 CBC/C OMPLE TE BLD COUNT W/DIF F red cell distribution width 13.1 % 11.8-1 5.5 Not Available [facility] (Lab) [address] [place], [address], 12/04/2021 13:14:29 12/05/19 22 12/04/2021 CBC/C OMPLE TE BLD COUNT W/DIF F platelets 188 x10'3 /uL 150-40 0 Not Available [facility] (Lab) [address] [place], [address], 12/04/2021 13:14:29 12/05/19 22 12/04/2021 CBC/C OMPLE TE BLD COUNT W/DIF F mean platelet volume 11.2 fL 9.0-12 .4 Not Available [facility] (Lab) [address] [place], [address], 12/04/2021 13:14:29 12/05/19 22 12/04/2021 CBC/C OMPLE TE BLD COUNT W/DIF F neutrophils 67.6 % 39.0-7 2.0 Not Available [facility] (Lab) [address] [place], [address], 12/04/2021 13:14:29 12/05/19 22 12/04/2021 CBC/C OMPLE TE BLD COUNT W/DIF F lymphocytes 24.3 % 16.0-4 7.0 Not Available [facility] (Lab) [address] [place], [address], 12/04/2021 13:14:29 12/05/19 22 12/04/2021 CBC/C OMPLE TE BLD COUNT W/DIF F monocytes 6.1 % 5.0-12 .0 Not Available [facility] (Lab) [address] [place], [address], 12/04/2021 13:14:29 12/05/19 22 12/04/2021 CBC/C OMPLE TE BLD COUNT W/DIF F eosinophils 1.1 % 1.0-7. 0 Not Available [facility] (Lab) [address] [place], [address], 12/04/2021 13:14:29 12/05/19 22 12/04/2021 CBC/C OMPLE TE BLD COUNT W/DIF F basophils 0.7 % 0.0-2. 0 Not Available [facility] (Lab) [address] [place], [address], 12/04/2021 13:14:29 12/05/19 22 12/04/2021 CBC/C OMPLE TE BLD COUNT W/DIF F immature granulocytes 0.2 % 0.00-0 .50 Not Available [facility] (Lab) [address] [place], [address], 12/04/2021 13:14:29 12/05/19 22 12/04/2021 CBC/C OMPLE TE BLD COUNT W/DIF F neutrophils, absolute count 5.43 x10'3 /uL 1.5-8. 0 Not Available [facility] (Lab) [address] [place], [address], 12/04/2021 13:14:29 12/05/19 22 12/04/2021 CBC/C OMPLE TE BLD COUNT W/DIF F lymphocytes, absolute count 1.95 x10'3 /uL 1.07-3 .43 Not Available [facility] (Lab) [address] [place], [address], 12/04/2021 13:14:29 12/05/19 22 12/04/2021 CBC/C OMPLE TE BLD COUNT W/DIF F monocytes, absolute count 0.49 x10'3 /uL 0.29-0 .99 Not Available [facility] (Lab) [address] [place], [address], 12/04/2021 13:14:29 12/05/19 22 12/04/2021 CBC/C OMPLE TE BLD COUNT W/DIF F eosinophils, absolute count 0.09 x10'3 /uL 0.02-0 .53 Not Available [facility] (Lab) [address] [place], [address], 12/04/2021 13:14:29 12/05/19 22 12/04/2021 CBC/C OMPLE TE BLD COUNT W/DIF F basophils, absolute count 0.06 x10'3 /uL 0.01-0 .08 Not Available [facility] (Lab) [address] [place], [address], 12/04/2021 13:14:29 12/05/19 22 12/04/2021 CBC/C OMPLE TE BLD COUNT W/DIF F immature granulocytes ,absolute 0.02 x10'3 /uL 0.00-0 .05 Not Available [facility] (Lab) [address] [place], [address], 12/04/2021 13:14:29 12/05/19 22 12/04/2021 CBC/C OMPLE TE BLD COUNT W/DIF F nucleated red blood cells 0.0 % -0 Not Available [facility] (Lab) [address] [place], [address], 12/04/2021 13:14:29 12/05/19 22 12/04/2021 CBC/C OMPLE TE BLD COUNT W/DIF F NRBC# 0.00 x10'3 /uL Not Available [facility] (Lab) [address] [place], [address], 12/04/2021 13:14:29 12/05/19 22 12/04/2021 URIC ACID SERUM uric acid 4.5 mg/dL 3.5-8. 5 Not Available [facility] (Lab) [address] [place], [address], 12/04/2021 13:07:04 12/05/19 22 12/04/2021 COMPR EHENS LIZZETTE METAB OLIC PANEL sodium 139 mmol/ L 137-14 5 Not Available [facility] (Lab) [address] [place], [address], 12/04/2021 13:07:01 12/05/19 22 12/04/2021 COMPR EHENS LIZZETTE METAB OLIC PANEL potassium 4.6 mmol/ L 3.5-5. 1 Not Available [facility] (Lab) [address] [place], [address], 12/04/2021 13:07:01 12/05/19 22 12/04/2021 COMPR EHENS LIZZETTE METAB OLIC PANEL chloride 103 mmol/ L 98-107 Not Available [facility] (Lab) [address] [place], [address], 12/04/2021 13:07:01 12/05/19 22 12/04/2021 COMPR EHENS LIZZETTE METAB OLIC PANEL carbon dioxide 30 mmol/ L 22-30 Not Available [facility] (Lab) [address] [place], [address], 12/04/2021 13:07:01 12/05/19 22 12/04/2021 COMPR EHENS LIZZETTE METAB OLIC PANEL agap 10.6 mmol/ L 14-22 low Not Available [facility] (Lab) [address] [place], [address], 12/04/2021 13:07:01 12/05/19 22 12/04/2021 COMPR EHENS LIZZETTE METAB OLIC PANEL glucose 110 mg/dL 70-99 high Not Available [facility] (Lab) [address] [place], [address], 12/04/2021 13:07:01 12/05/19 22 12/04/2021 COMPR EHENS LIZZETTE METAB OLIC PANEL BUN 20 mg/dL 8-19 high Not Available [facility] (Lab) [address] [place], [address], 12/04/2021 13:07:01 12/05/19 22 12/04/2021 COMPR EHENS LIZZETTE METAB OLIC PANEL creatinine 1.14 mg/dL 0.66-1 .25 Not Available [facility] (Lab) [address] [place], [address], 12/04/2021 13:07:01 12/05/19 22 12/04/2021 COMPR EHENS LIZZETTE METAB OLIC PANEL GFR >60 Refer ence Range : [place] ge GFR Healt hy Adult : >60 [...] calcu lator is avail able on the [facility] websi te: https ://ww w.kid nav.o rg/pr ofess ional s/kdo qi/gf r_cal culat or Not Available [facility] (Lab) [address] [place], [address], 12/04/2021 13:07:01 12/05/19 22 12/04/2021 COMPR EHENS LIZZETTE METAB OLIC PANEL alkaline phosphatase 77 U/L 38-126 Not Available [facility] (Lab) [address] [place], [address], 12/04/2021 13:07:01 12/05/19 22 12/04/2021 COMPR EHENS LIZZETTE METAB OLIC PANEL alanine aminotransfe rase 14 U/L 0-50 Not Available [facility] (Lab) [address] [place], [address], 12/04/2021 13:07:01 12/05/19 22 12/04/2021 COMPR EHENS LIZZETTE METAB OLIC PANEL aspartate aminotransfe rase 26 U/L 15-46 Not Available [facility] (Lab) [address] [place], [address], 12/04/2021 13:07:01 12/05/19 22 12/04/2021 COMPR EHENS LIZZETTE METAB OLIC PANEL bilirubin, total 0.60 mg/dL 0.20-1 .30 Not Available [facility] (Lab) [address] [place], [address], 12/04/2021 13:07:01 12/05/19 22 12/04/2021 COMPR EHENS LIZZETTE METAB OLIC PANEL calcium 10.3 mg/dL 8.4-10 .2 high Not Available [facility] (Lab) [address] [place], [address], 12/04/2021 13:07:01 12/05/19 22 12/04/2021 COMPR EHENS LIZZETTE METAB OLIC PANEL total protein 7.2 g/dL 6.3-8. 2 Not Available [facility] (Lab) [address] [place], [address], 12/04/2021 13:07:01 12/05/19 22 12/04/2021 COMPR EHENS LIZZETTE METAB OLIC PANEL albumin 4.2 g/dL 3.0-4. 4 Not Available [facility] (Lab) [address] [place], [address], 12/04/2021 13:07:01 12/05/19 22 12/04/2021 COMPR EHENS LIZZETTE METAB OLIC PANEL globulin 3.0 g/dL 2.6-4. 2 Not Available [facility] (Lab) [address] [place], [address], 12/04/2021 13:07:01 12/05/19 22 12/04/2021 COMPR EHENS LIZZETTE METAB OLIC PANEL A/G ratio 1.4 ratio 1.0-2. 0 Not Available [facility] (Lab) [address] [place], [address], 12/04/2021 13:07:01 12/05/19 22 12/04/2021 LIPID PANEL cholesterol 152 mg/dL 140-19 9 NIH HANK NSUS RECOM MENDA TION FOR ANIYA STERO L: ADULT CHILD LOW RISK: <200 <170 BORDE RLINE : <200- 239 ----- HIGH RISK: >240 >200 Not Available [facility] (Lab) [address] [place], [address], 12/04/2021 13:06:55 12/05/19 22 12/04/2021 LIPID PANEL triglyceride s 105 mg/dL 0-150 NIH HANK NSUS REPOR T RECOM MENDA TION FOR TRIGL YCERI WILLIAM: ADULT CHILD LOW RISK: <150 ----- BODER LINE: 150-1 99 ----- HIGH RISK: >200 ----- Not Available [facility] (Lab) [address] [place], [address], 12/04/2021 13:06:55 12/05/19 22 12/04/2021 LIPID PANEL HDL cholesterol 52 mg/dL 40- Not Available [facility] (Lab) [address] [place], [address], 12/04/2021 13:06:55 12/05/19 22 12/04/2021 LIPID PANEL [...] WILL NOT BE REPOR JESSICA. Not Available [facility] (Lab) [address] [place], [address], 12/04/2021 13:06:55 02/05/20 23 02/04/2023 COMPR EHENS LIZZETTE METAB OLIC PANEL sodium 140 mmol/ L 137-14 5 Not Available [facility] (Lab) [address] [place], [address], 02/04/2023 13:22:31 02/05/20 23 02/04/2023 COMPR EHENS LIZZETTE METAB OLIC PANEL potassium 4.3 mmol/ L 3.5-5. 1 Not Available [facility] (Lab) [address] [place], [address], 02/04/2023 13:22:31 02/05/20 23 02/04/2023 COMPR EHENS LIZZETTE METAB OLIC PANEL chloride 103 mmol/ L 98-107 Not Available [facility] (Lab) [address] [place], [address], 02/04/2023 13:22:31 02/05/20 23 02/04/2023 COMPR EHENS LIZZETTE METAB OLIC PANEL carbon dioxide 28 mmol/ L 22-30 Not Available [facility] (Lab) [address] [place], [address], 02/04/2023 13:22:31 02/05/20 23 02/04/2023 COMPR EHENS LIZZETTE METAB OLIC PANEL anion gap 13.3 mmol/ L 14-22 low Not Available [facility] (Lab) [address] [place], [address], 02/04/2023 13:22:31 02/05/20 23 02/04/2023 COMPR EHENS LIZZETTE METAB OLIC PANEL glucose 100 mg/dL 70-99 high Not Available [facility] (Lab) [address] [place], [address], 02/04/2023 13:22:31 02/05/20 23 02/04/2023 COMPR EHENS LIZZETTE METAB OLIC PANEL BUN 19 mg/dL 8-19 Not Available [facility] (Lab) [address] [place], [address], 02/04/2023 13:22:31 02/05/20 23 02/04/2023 COMPR EHENS LIZZETTE METAB OLIC PANEL creatinine 1.18 mg/dL 0.66-1 .25 Not Available [facility] (Lab) [address] [place], [address], 02/04/2023 13:22:31 02/05/20 23 02/04/2023 COMPR EHENS LIZZETTE METAB OLIC PANEL GFR 59 Refer ence Range : [place] ge GFR Healt hy Adult : >60 [...] ages must be made by the clini brnadan. The MDRD study equat ion has not been valid ated for the evalu ation of serum creat inine relat ed to nutri twila l statu s or medic ation usage . For perso ns <18 years of age, a pedia tric GFR calcu lator is avail able on the [facility] websi te: https ://ww w.kid nav.o rg/pr ofess ional s/kdo qi/gf r_cal culat or Not Available [facility] (Lab) [address] [place], [address], 02/04/2023 13:22:31 02/05/20 23 02/04/2023 COMPR EHENS LIZZETTE METAB OLIC PANEL alkaline phosphatase 54 U/L 38-126 Not Available [facility] (Lab) [address] [place], [address], 02/04/2023 13:22:31 02/05/20 23 02/04/2023 COMPR EHENS LIZZETTE METAB OLIC PANEL alanine aminotransfe rase 15 U/L 0-50 Not Available [facility] (Lab) [address] [place], [address], 02/04/2023 13:22:31 02/05/20 23 02/04/2023 COMPR EHENS LIZZETTE METAB OLIC PANEL aspartate aminotransfe rase 26 U/L 15-46 Not Available [facility] (Lab) [address] [place], [address], 02/04/2023 13:22:31 02/05/20 23 02/04/2023 COMPR EHENS LIZZETTE METAB OLIC PANEL bilirubin, total 0.70 mg/dL 0.20-1 .30 Not Available [facility] (Lab) [address] [place], [address], 02/04/2023 13:22:31 02/05/20 23 02/04/2023 COMPR EHENS LIZZETTE METAB OLIC PANEL calcium 9.6 mg/dL 8.4-10 .2 Not Available [facility] (Lab) [address] [place], [address], 02/04/2023 13:22:31 02/05/20 23 02/04/2023 COMPR EHENS LIZZETTE METAB OLIC PANEL total protein 6.5 g/dL 6.3-8. 2 Not Available [facility] (Lab) [address] [place], [address], 02/04/2023 13:22:31 02/05/20 23 02/04/2023 COMPR EHENS LIZZETTE METAB OLIC PANEL albumin 4.0 g/dL 3.0-4. 4 Not Available [facility] (Lab) [address] [place], [address], 02/04/2023 13:22:31 02/05/20 23 02/04/2023 COMPR EHENS LIZZETTE METAB OLIC PANEL globulin 2.5 g/dL 2.6-4. 2 low Not Available [facility] (Lab) [address] [place], [address], 02/04/2023 13:22:31 02/05/20 23 02/04/2023 COMPR EHENS LIZZETTE METAB OLIC PANEL A/G ratio 1.6 ratio 1.0-2. 0 Not Available [facility] (Lab) [address] [place], [address], 02/04/2023 13:22:31 02/05/2002/04/2023 LIPID PANEL cholesterol 162 mg/dL 140-19 9 NIH HANK NSUS RECOM MENDA TION FOR ANIYA STERO L: ADULT CHILD LOW RISK: <200 <170 BORDE RLINE : <200- 239 ----- HIGH RISK: >240 >200 Not Available [facility] (Lab) [address] [place], [address], 02/04/2023 13:22:46 02/05/20 23 02/04/2023 LIPID PANEL triglyceride s 73 mg/dL 0-150 NIH HANK NSUS REPOR T RECOM MENDA TION FOR TRIGL YCERI WILLIAM: ADULT CHILD LOW RISK: <150 ----- BODER LINE: 150-1 99 ----- HIGH RISK: >200 ----- Not Available [facility] (Lab) [address] [place], [address], 02/04/2023 13:22:46 02/05/20 23 02/04/2023 LIPID PANEL HDL cholesterol 56 mg/dL 40- Not Available [facility] (Lab) [address] [place], [address], 02/04/2023 13:22:46 02/05/20 23 02/04/2023 LIPID PANEL [...] WILL NOT BE REPOR JESSICA. Not Available [facility] (Lab) [address] [place], [address], 02/04/2023 13:22:46 02/05/20 23 02/04/2023 URIC ACID SERUM uric acid 5.4 mg/dL 3.5-8. 5 Not Available [facility] (Lab) [address] [place], [address], 02/04/2023 13:22:53 02/05/20 23 02/04/2023 PSA SCREE N PSA medicare screen 3.33 NG/mL 0.00-4 .00 Not Available [facility] (Lab) [address] [place], [address], 02/04/2023 22:18:39 12/05/19 22 XR, cervi corrine spine , 2 or 3 view [facility] [address] [place] [address] [phone] Patien t Name: JULES BAY Access ion #: [id number] Sex: M : 1939 8 Locati [...] of fractu re. Page 1 of 2 [facility] Patien t Name: JULES BAY Access ion #: [id number] Sex: M : 1939 8 Exam [...] 1:17 PM (CT) Page 2 of 2 [id number] [facility] (Imaging) [address] [place], [address], 11/25/2022 04:59:49 12/09/19 22 12/08/2021 US, sven x, lyly id arter y No observ ation record ed. [id number] [facility] (Imaging) [address] [place] [address] [place] [address], [phone], 11/25/2022 04:59:49 12/12/19 22 MRI, brain , w/wo contr ast [facility] [address] [place] [address] Sarah Beth t Name: JULES BAY Access ion #: [id number] Sex: M : 1939 3 Locati [...] al postco ntrast Page 1 of 2 [facility] Patien t Name: JULES BAY Access ion #: [id number] Sex: M : 1939 3 Exam [...] 1:40 PM (CT) Page 2 of 2 [id number] [facility] (Imaging) [address] [place], [address], 11/25/2022 04:59:49 Result Notes None recorded. Problems Name Problem SNOMED Code Status Onset Date Resolution Date Notes Provider Name and Address Organization Details Recorded Time Chronic back pain 442553613 Active Not Available [facility] 3 17:06:40 Urinary incontinence 272743987 Active 2021 Not Available [facility] 3 17:06:40 Blood glucose outside reference range 377612314 Active Not Available [facility] 3 17:06:40 Sciatica 80548116 Active Not Available [facility] 3 17:06:40 Pure hypercholeste rolemia 664251856 Active Not Available [facility] 3 17:06:40 Low back pain 967997853 Active Not Available [facility] 3 17:06:40 Dyslipidemia 036257238 Active 2018 Not Available [facility] 3 17:06:40 Diverticular disease 488939117 Active Not Available [facility] 3 17:06:40 Vertigo 833661993 Active Not Available [facility] 3 17:06:40 Dizziness 534028339 Active Not Available [facility] 3 17:06:40 Obesity 865126975 Active Not Available [facility] 3 17:06:40 Chronic atrial fibrillation 880426567 Active 2020 Not Available [facility] 3 17:06:40 Essential hypertension 25017029 Active Not Available [facility] 3 17:06:40 Neck pain 30231512 Active 2021 Not Available [facility] 3 17:06:40 Gout 84994752 Active Not Available [facility] 3 17:06:40 Skin lesion 82639717 Active Not Available [facility] 3 17:06:40 Problem Notes None recorded. Procedures Surgical History Date Name Laterality Status Provider Name and Address Organization Details Recorded Time 12/28/19 Colonoscopy completed Not Available [facility] 11/26/19 04:42:35 Cholecystectomy completed Not Available [facility] 11/25/2022 04:42:35 Imaging Results Imaging Date Name Status LastModified by Organiz ation Details LastModified Time 12/04/2021 XR, cervical spine, 2 or 3 view completed [id number] [facility] (Imaging) [address] [place], [address], 11/25/2022 04:59:49 12/11/2021 MRI, brain, w/wo contrast completed [id number] [facility] (Imaging) [address] [place], [address], 11/25/2022 04:59:49 12/08/2021 US, duplex, carotid artery completed [id number] [facility] (Imaging) [address] [place] [address], [phone], 11/25/2022 04:59:49 Procedure Notes None recorded. Medical [...] Date Recorded Body mass index (BMI) Body height Pain severity - 0-10 verbal numeric rating [Score] - Reported Heart rate Body temperature Body weight Systolic blood pressure Diastolic blood pressure Provider Name and Address Organization Details Last Updated DateTime 2 27.8 kg/m2 175.26 cm 5 78 /min 97.6 [degF] 90654.3 7 g 110 mm[Hg] 66 mm[Hg] Not Available [facility] 3 04:47:14 Date Recorded Body mass index (BMI) Body height Heart rate Body temperature Body weight Systolic blood pressure Diastolic blood pressure Provider Name and Address Organization Details Last Updated DateTime 2 27.3 kg/m2 175.26 cm 64 /min 96.2 [degF] 39449.5 9 g 120 mm[Hg] 60 mm[Hg] Not Available [facility] 3 04:47:14 Date Recorded Body mass index (BMI) Body height Heart rate Body temperature Body weight Systolic blood pressure Diastolic blood pressure Provider Name and Address Organization Details Last Updated DateTime 2 27.9 kg/m2 175.26 cm 61 /min 98.3 [degF] 12227.9 6 g 122 mm[Hg] 76 mm[Hg] Not Available [facility] 3 04:47:14 Date Recorded Body height Body mass index (BMI) Body weight Body temperature Heart rate Systolic blood pressure Diastolic blood pressure Provider Name and Address Organization Details Last Updated DateTime 3 175.26 cm 26.7 kg/m2 84342.2 2 g 97.9 [degF] 72 /min 122 mm[Hg] 76 mm[Hg] ANTOINETTE Nowak CA - S [place] [employer] [facility] 3 10:59:32 Date Recorded Body height Body mass index (BMI) Body weight Body temperature Heart rate Systolic blood pressure Diastolic blood pressure Provider Name and Address Organization Details Last Updated DateTime 3 175.26 cm 27.3 kg/m2 59090.5 9 g 98.2 [degF] 62 /min 124 mm[Hg] 72 mm[Hg] ANTOINETTE Nowak CA - [facility] [employer] [facility] 10:53:33 Social History Question Answer Notes LastModified by Organization Details LastModified Time Tobacco Smoking Status Never Smoker Not Available [facility] 11/25/2022 04:21:43 Do You Have An Advance Directive? Yes [id number] Information not available 11/25/2022 What Is Your Level Of Alcohol Consumption? None [email or web address].030 [id number] Information not available 11/25/2022 Are You Blind Or Do You Have Difficulty Seeing? No [email or web address].030 [id number] Information not available 11/25/2022 What Is Your Level Of Caffeine Consumption? Heavy MIGRATION.030 [id number] Information not available 11/25/2022 How Much Tobacco Do You Chew? None [email or web address].030 [id number] Information not available 11/25/2022 In The 14 Days Before Symptom Onset, Have You Had Close Contact With A Laboratory-confi rmed COVID-19 While That Case Was Ill? No [email or web address].030 [id number] Information not available 11/25/2022 In The 14 Days Before Symptom Onset, Have You Had Close Contact With A Person Who Is Under Investigation For COVID-19 While That Person Was Ill? No [id number] Information not available 11/25/2022 Are You Deaf Or Do You Have Serious Difficulty Hearing? Yes Has Hearing Aids [email or web address].030 [id number] Information not available 11/25/2022 What Type Of Diet Are You Following? REGULAR MIGRATION.030 [id number] Information not available 11/25/2022 Which Illicit Or Recreational Drugs Have You Used? None [email or web address].030 [id number] Information not available 11/25/2022 Do You Or Have You Ever Used E-cigarettes Or Vape? Never Used Electronic Cigarettes MIGRATION.030 [id number] Information not available 11/25/2022 What Is The Highest Grade Or Level Of School You Have Completed Or The Highest Degree You Have Received? [id number] MIGRATION.030 [id number] Information not available 11/25/2022 What Is Your Occupation? Retired MIGRATION.030 [id number] Information not available 11/25/2022 Have There Been Any Changes To Your Family Or Social Situation? No [id number].0301 [id number] Information not available 11/25/2022 What Is The Fluoride Status Of Your Home? Unknown [id number] Information not available 11/25/2022 Are There Any Guns Present In Your Home? Yes MIGRATION.[id number] [id number] Information not available 11/25/2022 Do You Use Insect Repellent Routinely? No MIGRATION.[id number] [id number] Information not available 11/25/2022 Where Do You Live? [facility] MIGRATION.[id number] Information not available 11/25/2022 Do You Have A Medical Power Of Piano Technician? Yes MIGRATION.0301 [id number] Information not available 11/25/2022 What Was The Date Of Your Most Recent Tobacco Screening? 07/29/2023 [email or web address] Information not available 07/29/2023 Do You Have Any Pets? No MIGRATION.[id number] [id number] Information not available 11/25/2022 What Is Your Relationship Status? MIGRATION.0301 [id number] Information not available 11/25/2022 Do You Use Your Seat Belt Or Car Seat Routinely? Yes MIGRATION.0301 [id number] Information not available 11/25/2022 Do You Have Smoke And Carbon Monoxide Detectors In Your Home? Yes MIGRATION.0301 [id number] Information not available 11/25/2022 Are You Passively Exposed To Smoke? No MIGRATION.0301 [id number] Information not available 11/25/2022 Do You Or Have You Ever Used Smokeless Tobacco? Never Used Smokeless Tobacco MIGRATION.0301 [id number] Information not available 11/25/2022 Are There Any Smokers In Your House? No MIGRATION.0301 [id number] Information not available 11/25/2022 How Much Tobacco Do You Smoke? No MIGRATION.0301 [id number] Information not available 11/25/2022 What Types Of Sporting Activities Do You Participate In? None MIGRATION.0301 [id number] Information not available 11/25/2022 Do You Feel Stressed (tense, Restless, Nervous, Or Anxious, Or Unable To Sleep At Night)? [id number] MIGRATION.0301 [id number] Information not available 11/25/2022 Do You Use Any Illicit Or Recreational Drugs? No MIGRATION.0301 069208 Information not available 11/25/2022 Do You Use Sunscreen Routinely? No MIGRATION.0301 [id number] Information not available 11/25/2022 Has Tobacco Cessation Counseling Been Provided? No Not Needed-ne tammy Smoked MIGRATION.0301 [id number] Information not available 11/25/2022 Have You Recently Traveled Abroad? No MIGRATION.0301 [id number] Information not available 11/25/2022 Do You Have Any Dietary Restrictions? No MIGRATION.0301 [id number] Information not available 11/25/2022 Do You Or Have You Ever Used Any Other Forms Of Tobacco Or Nicotine? No MIGRATION.0301 [id number] Information not available 11/25/2022 Sex: Male Functional Status Question Answer Note LastModified by Organizat ion Details LastModified Time Do you have difficulty walking or climbing stairs? No MIGRATION.[id number] 026 Information not available 11/25/2022 Do you have transportation difficulties? No MIGRATION.1690841 026 Information not available 11/25/2022 Are you able to walk? YESWOREST MIGRATION.[id number] 026 Information not available 11/25/2022 Do you have difficulty doing errands alone? No MIGRATION.5670411 026 Information not available 11/25/2022 Are you able to care for yourself? Yes MIGRATION.1200985 026 Information not available 11/25/2022 Do you have difficulty dressing or bathing? No MIGRATION.6916872 026 Information not available 11/25/2022 What is your exercise level? None MIGRATION.7732050 026 Information not available 11/25/2022 Mental Status Question Answer Note LastModified by Organizat ion Details LastModified Time Do you have difficulty concentrating, remembering or making decisions? No MIGRATION.[id number] 6 Information not available 11/25/2022 Family History Relationship Description Onset Age of this Age Resolved Age Notes LastModified by Organization Details LastModified Time Father Malignant neoplastic disease MIGRATION.019 [id number] Not available 11/25/2022 04:42:41 Mother Hypertensive disorder MIGRATION.564 [id number] Not available 11/25/2022 04:42:41 Medical History Condition [...] ARTERY DISEASE (CAD) N ADDICTION CONCERNS N Impotence N ENDOMETRIOSIS N USE OF BLOOD THINNERS N SKIN [...] APNEA N CHICKENPOX N INFECTIOUS DISEASE N PROSTATE N HEART ARRHYTHMIA N INSOMNIA N HIGH CHOLESTEROL / HYPERLIPIDEMIA Y EYE PROBLEMS Y HYPERTHYROIDISM N NEUROLOGICAL PROBLEMS N EDEMA N CHRONIC PAIN SYNDROME N HYPOTHYROIDISM N CONSTIPATION N CAROTID BLOCKAGE N BACK / NECK PROBLEMS Y HAVE YOU BEEN HOSPITALIZED OR SEEN IN [facility] IN THE PAST YEAR ? N ATHEROSCLEROSIS N BREAST PROBLEMS N DIALYSIS N ECZEMA N OSTEOPOROSIS N ARTHRITIS N APPENDICITIS N DIABETES, TYPE N BAD TEETH N ENT N HEARTBURN / REFLUX N AFIB N AUTISM SPECTRUM DISORDER (ASD) N HEPATITIS / LIVER DISEASE N GOUT Y SLEEP DISORDER N ALZHEIMER'S DISEASE N Brain Problems N DEMENTIA N HERPES N SEIZURES/EPILEPSY N HEADACHES/MIGRAINES N VASCULAR DISEASE N PACEMAKER N Blood Disorder N DIZZINESS N HEART DISEASE/HEART PROBLEMS N KIDNEY DISEASE N MULTIPLE SCLEROSIS N CANCER: SPECIFY N CARDIAC ARRHYTHMIA N ATRIAL FIBRILLATION Y Gall Stones N PULMONARY EMBOLISM N AUTOIMMUNE DISEASE N Immunizations Vaccine Type Date Status Note Provider Nam e and Address Organization Details Recorded Time COVID-19, mRNA, LNP-S, PF, 30 mcg/0.3 mL dose 1 completed Not Available [facility] 03/03/2023 17:06:40 COVID-19, mRNA, LNP-S, PF, 30 mcg/0.3 mL dose 1 completed Not Available [facility] 03/03/2023 17:06:40 COVID-19, mRNA, LNP-S, PF, 30 mcg/0.3 mL dose 1 completed Not Available [facility] 03/03/2023 17:06:40 Influenza, high-dose, quadrivalent, PF 2 completed Not Available [facility] 03/03/2023 17:06:40 Influenza, high-dose, quadrivalent, PF 1 completed Not Available [facility] 03/03/2023 17:06:40 Pneumococcal conjugate PCV 13 0 completed Not Available [facility] 03/03/2023 17:06:40 Influenza, high-dose, quadrivalent, PF 0 completed Not Available [facility] 03/03/2023 17:06:40 Influenza, high-dose, trivalent, PF 9 completed Not Available [facility] 03/03/2023 17:06:40 Influenza, high-dose, trivalent, PF 8 completed Not Available [facility] 03/03/2023 17:06:40 Influenza, high-dose, trivalent, PF 7 completed Not Available [facility] 03/03/2023 17:06:40 Influenza, high-dose, trivalent, PF 6 completed Not Available [facility] 03/03/2023 17:06:40 Influenza, split virus, quadrivalent, PF 5 completed Not Available [facility] 03/03/2023 17:06:41 Influenza, split virus, trivalent, PF 4 completed Not Available [facility] 03/03/2023 17:06:41 Influenza, split virus, trivalent, preservative 3 completed Not Available [facility] 03/03/2023 17:06:41 Influenza, high-dose, quadrivalent, PF 3 completed Mahamed Richard MD [address] [place] [address] [place], [address], [address], [facility] 08/07/2023 13:47:35 Past Encounters Encounter ID Performer Location Encounter Start Date Encounter Closed Date Diagnosis/Indication Diagnosis SNOMED-CT Code Diagnosis ICD10 Code Diagnosis [id number] Car[facility] qu[facility]o [address] [place] [address] [place] [address] 01/14/2021 00:00:00 01/14/2021 22:01:41 [id number] [facility] Carli quintero [address] [place] [address] [place] [address] 05/20/2021 00:00:00 05/20/2021 20:47:09 [id number] [facility] Internal Med Wilianvi llevin [address] [place] [address] [place] [address] 12/04/2021 00:00:00 12/27/2021 22:33:06 [id number] [facility] Internal Med Carli llevin [address] [place] [address] [place] [address] 04/09/2022 00:00:00 2022 20:22:51 [id number] [facility] Internal Med Carli llevin [address] [place] [address] [place] [address] 08/06/2022 00:00:00 08/07/2022 14:57:35 [id number] Mahamed Richard MD [facility] Internal Med Carli quintero [address] [place] [address] [place] [address] 02/04/2023 10:48:44 02/04/2023 11:47:15 Dyslipidemia 935787935 E78.5 Essential hypertension 40253006 I10 Gout 08979316 M10.9 Screening for malignant neoplasm of prostate 841035702 Z12.5 Chronic at rial fibrillation 454516408 I48.20 Chronic back pain 125671 002 G89.29 [id number] Mahamed Richard MD [facility] Internal Med Carli quintero [address] [place] [address] [place] [address] 07/29/2023 10:45:53 07/29/2023 11:45:33 Administration of influenza vaccine 86155874 Z23 Chronic at rial fibrillation 658315614 I48.20 Dyslipidemia 777065150 E 78.5 Chronic back pain 103109 002 G89.29 Diverticular disease 397 781748 K57.90 Essential hypertension 87736610 I10 Gout 37318842 M10.9 Health Concerns Section Related Observation LastModified by Organization Detai ls LastModified Time None Recorded Concern Status LastModified by Organization Details LastModified Time None Recorded Advance Directives Directive Y: Payers Encounter Date Sequence Insurance Name Policy Number Policy Cavanaugh Covered Member ID Cavanaugh Member ID Guarantor Name 02/04/2023 1 [facility] (MEDICARE REPLACEMENT/A DVANTAGE - PPO) [id number] [address] [place] [place] [id number] Jules Gerberon 07/29/2023 1 [facility] (MEDICARE REPLACEMENT/A DVANTAGE - PPO) [id number] [place] [id number] [place] Notes Date Note Type Note Provider Name and Address Organization Details Recorded Time 02/04/2023 text/html dyslipidemia [place] try to watch his dietgout no red hot swollen jointshypertension no chest pain or dizzinesschronic back pain stableAFib no headache dizziness or palpitations Mahamed Richard MD [address] [employer], [place], [address], [employer] 02/04/2023 13:48:09 07/29/2023 text/html Dyslipidemia try ing to follow diet. AFib no palpitations chronic back pain stable diverticular disease could take more fiber hypertension no headache or dizziness. Gout no flare-ups. Mahamed Richard MD [address] [employer], [place], [address], [employer] 08/07/2023 13:47:39
--- OUTSIDE RECORDS SUMMARY | 2025-01-03 08:06 | XMS_ITS | Data Portability ---
Author Organization [facility] Address [address] [place] [address] Care Team Providers Care Outsole Scheduler Name Role Phone GANESH RICHARD Primary Care Provider IRMA Mendez Type Proof Reproducer Assessment Encounter Date Assessment Date Assessment LastModified by Organization Details LastModified Time 01/07/2024 01/07/2024 Continue current therapy blood work to evaluate his problems and efficacy of medication. He was told to stay up-to-date on tetanus RSV see COVID and flu shots he will follow-up with me in 4 months continue current therapy blood pressure good control Not available 01/08/2024 18:19:48 01/13/2024 01/13/2024 Prevnar 20 all e lse discussed Not available 01/13/2024 13:57:33 05/11/2024 05/11/2024 We will continue with current therapy diagnosis and assessment and plan have been discussed he will follow up with me in 4 months blood work at that time. [email or web address] Not available 05/11/2024 22:54:22 09/07/2024 09/07/2024 he needs a sleep study describes some apneic spells he has had pauses during sleep also AFib. Etiologies could be from the sleep apnea the beta-blockade has been taking care of with the discontinuation of nebivolol he has had thyroid studies I believe that were nondiagnostic. Could have some chronotropic incompetence. follow up 3 months [email or web address] Not available 10/02/2024 20:53:18 12/07/2024 12/07/2024 he continues wit h his allopurinol Lasix lisinopril hydrochlorothiazide simvastatin tamsulosin and Xarelto get the sleep titration study continue current therapy follow up in 4 months [email or web address] Not available 12/10/2024 12:30:12 Plan of Treatment Reminders Order Date Submit Date Provider Last Modified By Organization Details Last Modified Time Details Appointments ANY 15 2024 10:00A Santosh Richard MD Not available Not available Not available Lab CBC w/ auto diff 2024 025 [facility], [address] , [place], [address], 12/13/2024 14:12:31 CMP, serum or plasma 2024 025 [facility], [address], [place], [address], 12/08/2024 09:22:34 lipid panel, serum 2024 025 [facility], [address] [place], [address], 12/13/2024 14:12:31 CMP, serum or plasma 2023 024 [facility], [address] [place] [address] [place], [address], 01/08/2024 10:11:43 CBC w/ auto diff 2023 024 [facility], [address] [place] [address], [address], 01/08/2024 10:11:44 lipid panel, serum 2023 024 [facility], [address] [place] [address] [place], [address], 01/08/2024 10:11:44 Referral None recorded. Procedures polysomno graphy, diagnoschacorta wallace (PROC) 2023 024 [facility], [address] [place], [address], 11/10/2024 15:58:49 Surgeries None recorded. Imaging None recorded. Medication Orders None recorded. Patient TargetsNo targets recorded. Patient Instructions Encounter Date Encounter Id Patient Instructions Last Modified By Organization Details Last Modified Time 01/13/2024 [id number] preventing falls : care instructions [email or web address] Not available 01/13/2024 13:57:45 Medicare Wellnes s Preventive Checklist [email or web address] Not available 01/13/2024 13:57:45 eating healthy foods: care instructions [email or web address] Not available 01/13/2024 13:57:45 09/07/2024 [id number] A healthy lifestyle: care instructions [email or web address] Not available 09/07/2024 12:58:07 12/07/2024 [id number] A healthy lifestyle: care instructions Not available 12/07/2024 11:12:11 Reason for Referral None Reported. Results Created Date Observation Date Name Description Value Unit Range Abnormal Flag Note LastModifiedBy Organization Detail LastModifiedTime 01/07/20 24 01/08/2024 CMP14 glucose 97 mg/dL 70-99 Not Availabl e [facility] ([facility]) [address] [place], [address], 01/08/2024 10:11:43 01/07/20 24 01/08/2024 CMP14 BUN 22 mg/dL 8-27 Not Available [facility] ([facility]) [address] [place], [address], 01/08/2024 10:11:43 01/07/20 24 01/08/2024 CMP14 creatinine 1.22 mg/dL 0.76-1 .27 Not Available [facility] ([facility]) [address] [place], [address], 01/08/2024 10:11:43 01/07/20 24 01/08/2024 CMP14 eGFR 58 mL/mi n/1.7 3 >59 below low normal Not Available [facility] ([facility]) [address] [place], [address], 01/08/2024 10:11:43 01/07/20 24 01/08/2024 CMP14 BUN/creatini ne ratio 18 10-24 Not Available [facility] ([facility]) [address] [facility] [place], [address], 01/08/2024 10:11:43 01/07/20 24 01/08/2024 CMP14 sodium 142 mmol/ L 134-14 4 Not Available [facility] ([facility]) [address] [facility] [place], [address], 01/08/2024 10:11:43 01/07/20 24 01/08/2024 CMP14 potassium 4.7 mmol/ L 3.5-5. 2 Not Available [facility] ([facility]) [address] [facility] [place], [address], 01/08/2024 10:11:43 01/07/20 24 01/08/2024 CMP14 chloride 104 mmol/ L 96-106 Not Available [facility] ([facility]) [address] [facility] [place], [address], 01/08/2024 10:11:43 01/07/20 24 01/08/2024 CMP14 carbon dioxide, total 24 mmol/ L 20-29 Not Available [facility] ([facility]) [address] [facility], [place], [address], 01/08/2024 10:11:43 01/07/20 24 01/08/2024 CMP14 calcium 9.3 mg/dL 8.6-10 .2 Not Available [facility] ([facility]) [address] [facility] [place], [address], 01/08/2024 10:11:43 01/07/20 24 01/08/2024 CMP14 protein, total 6.4 g/dL 6.0-8. 5 Not Available [facility] ([facility]) [address] [facility] [place], [address], 01/08/2024 10:11:43 04/12/01/08/2024 CMP14 albumin 3.8 g/dL 3.7-4. 7 Not Available [facility] ([facility]) [address] [place], [address], 01/08/2024 10:11:43 01/07/20 24 01/08/2024 CMP14 globulin, total 2.6 g/dL 1.5-4. 5 Not Available [facility] ([facility]) [address] [facility] [place], [address], 01/08/2024 10:11:43 01/07/20 24 01/08/2024 CMP14 A/G ratio 1.5 1.2-2. 2 Not Available [facility] ([facility]) [address] [facility] [place], [address], 01/08/2024 10:11:43 01/07/20 24 01/08/2024 CMP14 bilirubin, total 0.5 mg/dL 0.0-1. 2 Not Available [facility] ([facility]) [address] [facility] [place], [address], 01/08/2024 10:11:43 01/07/20 24 01/08/2024 CMP14 alkaline phosphatase 92 IU/L 44-121 Not Available [facility] ([facility]) [address] [facility] [place], [address], 01/08/2024 10:11:43 01/07/20 24 01/08/2024 CMP14 AST (SGOT) 22 IU/L 0-40 Not Avail able [facility] ([facility]) [address] [facility] [place], [address], 01/08/2024 10:11:43 01/07/20 24 01/08/2024 CMP14 ALT (SGPT) 19 IU/L 0-44 Not Avail able [facility] ([facility]) [address] [facility] [place], [address], 01/08/2024 10:11:43 01/07/20 24 01/08/2024 LIPID PANEL cholesterol, total 144 mg/dL 100-19 9 Not Available [facility] ([facility]) [address] [place], [address], 01/08/2024 10:11:44 01/07/20 24 01/08/2024 LIPID PANEL triglyceride s 69 mg/dL 0-149 Not Available [facility] ([facility]) [address] [place], [address], 01/08/2024 10:11:44 01/07/20 24 01/08/2024 LIPID PANEL HDL cholesterol 40 mg/dL >39 Not Available [facility] ([facility]) [address] [facility], [place], [address], 01/08/2024 10:11:44 01/07/20 24 01/08/2024 LIPID PANEL VLDL cholesterol corrine 14 mg/dL 5-40 Not Available [facility] ([facility]) [address] [place], [address], 01/08/2024 10:11:44 01/07/20 24 01/08/2024 LIPID PANEL LDL chol calc ([facility]) 90 mg/dL 0-99 Not Available [facility] ([facility]) [address] [place], [address], 01/08/2024 10:11:44 01/07/20 24 01/08/2024 CBC WITH DIFFE RENTI AL/PL ATELE T WBC 10.4 x10e3 /uL 3.4-10 .8 Not Available [facility] ([facility]) [address] [place], [address], 01/08/2024 10:11:44 01/07/20 24 01/08/2024 CBC WITH DIFFE RENTI AL/PL ATELE T RBC 4.21 x10e6 /uL 4.14-5 .80 Not Available [facility] ([facility]) [address] [facility] [place], [address], 01/08/2024 10:11:44 01/07/20 24 01/08/2024 CBC WITH DIFFE RENTI AL/PL ATELE T hemoglobin 12.6 g/dL 13.0-1 7.7 below low normal Not Available [facility] ([facility]) [address] [facility], [place], [address], 01/08/2024 10:11:44 01/07/20 24 01/08/2024 CBC WITH DIFFE RENTI AL/PL ATELE T hematocrit 39.1 % 37.5-5 1.0 Not Available [facility] ([facility]) [address] [facility], [place], [address], 01/08/2024 10:11:44 01/07/20 24 01/08/2024 CBC WITH DIFFE RENTI AL/PL ATELE T MCV 93 fL 79-97 Not Available [facility] ([facility]) [address] [facility], [place], [address], 01/08/2024 10:11:44 01/07/20 24 01/08/2024 CBC WITH DIFFE RENTI AL/PL ATELE T MCH 29.9 pg 26.6-3 3.0 Not Available [facility] ([facility]) [address] [facility] [place], [address], 01/08/2024 10:11:44 01/07/20 24 01/08/2024 CBC WITH DIFFE RENTI AL/PL ATELE T MCHC 32.2 g/dL 31.5-3 5.7 Not Available [facility] ([facility]) [address] [place], [address], 01/08/2024 10:11:44 01/07/20 24 01/08/2024 CBC WITH DIFFE RENTI AL/PL ATELE T RDW 12.4 % 11.6-1 5.4 Not Available [facility] ([facility]) [address] [facility], [place], [address], 01/08/2024 10:11:44 01/07/20 24 01/08/2024 CBC WITH DIFFE RENTI AL/PL ATELE T platelets 389 x10e3 /uL 150-45 0 Not Available [facility] ([facility]) [address] [facility], [place], [address], 01/08/2024 10:11:44 01/07/20 24 01/08/2024 CBC WITH DIFFE RENTI AL/PL ATELE T neutrophils 73 % notest ab. Not Available [facility] ([facility]) [address] [facility], [place], [address], 01/08/2024 10:11:44 01/07/20 24 01/08/2024 CBC WITH DIFFE RENTI AL/PL ATELE T lymphs 19 % notest ab. Not Available [facility] ([facility]) [address] [facility], [place], [address], 01/08/2024 10:11:44 01/07/20 24 01/08/2024 CBC WITH DIFFE RENTI AL/PL ATELE T monocytes 5 % notest ab. Not Available [facility] ([facility]) [address] [facility], [place], [address], 01/08/2024 10:11:44 01/07/20 24 01/08/2024 CBC WITH DIFFE RENTI AL/PL ATELE T eos 1 % notest ab. Not Available [facility] ([facility]) [address] [facility], [place], [address], 01/08/2024 10:11:44 01/07/20 24 01/08/2024 CBC WITH DIFFE RENTI AL/PL ATELE T basos 1 % notest ab. Not Available [facility] ([facility]) [address] [facility], [place], [address], 01/08/2024 10:11:44 01/07/20 24 01/08/2024 CBC WITH DIFFE RENTI AL/PL ATELE T neutrophils (absolute) 7.6 x10e3 /uL 1.4-7. 0 above high normal Not Available [facility] ([facility]) [address] [facility], [place], [address], 01/08/2024 10:11:44 01/07/20 24 01/08/2024 CBC WITH DIFFE RENTI AL/PL ATELE T lymphs (absolute) 2.0 x10e3 /uL 0.7-3. 1 Not Available [facility] ([facility]) [address] [place], [address], 01/08/2024 10:11:44 01/07/20 24 01/08/2024 CBC WITH DIFFE RENTI AL/PL ATELE T monocytes(ab solute) 0.5 x10e3 /uL 0.1-0. 9 Not Available [facility] ([facility]) [address] [place], [address], 01/08/2024 10:11:44 01/07/20 24 01/08/2024 CBC WITH DIFFE RENTI AL/PL ATELE T eos (absolute) 0.1 x10e3 /uL 0.0-0. 4 Not Available [facility] ([facility]) [address] [place], [address], 01/08/2024 10:11:44 01/07/20 24 01/08/2024 CBC WITH DIFFE RENTI AL/PL ATELE T baso (absolute) 0.1 x10e3 /uL 0.0-0. 2 Not Available [facility] ([facility]) [address] [place], [address], 01/08/2024 10:11:44 01/07/20 24 01/08/2024 CBC WITH DIFFE RENTI AL/PL ATELE T immature granulocytes 1 % notest ab. Not Available [facility] ([facility]) [address] [facility], [address], 01/08/2024 10:11:44 01/07/20 24 01/08/2024 CBC WITH DIFFE RENTI AL/PL ATELE T immature grans (abs) 0.1 x10e3 /uL 0.0-0. 1 Not Available [facility] ([facility]) [address] [facility], [place], [address], 01/08/2024 10:11:44 01/06/20 24 12/27/2022 colon oscop y scree george (PROC ) No observ ation record ed. BARCODE Not Available 2023 16:45:38 06/29/2006/29/2024 US, doppl er, venou s No observ ation record ed. [address] [facility], [place], [address], 07/09/2024 21:58:41 07/10/2007/10/2024 CT, brain , w/o contr ast No observ ation record ed. [address], [place], [address], 07/11/2024 12:29:15 07/10/20 24 07/10/2024 XR, chest , 2 view No observ ation record ed. [address], [place], [address], 07/11/2024 12:29:27 07/10/20 24 07/10/2024 XR, lumba r spine , 2 view No observ ation record ed. [address], [place], [address], 07/11/2024 12:29:40 07/10/20 24 07/10/2024 CT, lumba r spine , w/o contr ast No observ ation record ed. [address], [place], [address], 07/13/2024 11:42:23 07/11/20 24 07/11/2024 CT, angio gram, head, w/ contr ast No observ ation record ed. [place] [id number] [facility] [address], [place], [address], 07/14/2024 15:31:40 07/12/20 24 07/12/2024 MRI, brain , w/o contr ast No observ ation record ed. [place] [id number] [facility] [address], [place], [address], 07/14/2024 15:28:55 07/12/2007/12/2024 , [facility] ardio gram No observ ation record ed. [place] [id number] [facility] [address], [place], [address], 07/14/2024 15:29:15 07/13/2007/13/2024 MRI, lumba r spine , w/o contr ast No observ ation record ed. [place] [id number] [facility] [address], [place], [address], 07/14/2024 15:29:39 07/13/2007/11/2024 elect roenc ephal ogram No observ ation record ed. [place] [id number] [facility] [address], [place], [address], 07/14/2024 15:30:28 07/27/2007/27/2024 marilu r monit or No observ ation record ed. [facility] [address] [facility] [address], [place], [address], 08/02/2024 16:18:51 11/09/19 25 10/31/2024 polys omnog leslie , split night (PROC ) No observ ation record ed. [facility] [address] [facility] [address], [place], [address], 11/13/2024 14:49:55 Result Notes None recorded. Problems Name Problem SNOMED Code Status Onset Date Resolution Date Notes Provider Name and Address Organization Details Recorded Time Atrial fibrillation 48035458 Active 2023 Ganesh Richard MD Attn: Maribel workman,[address] [facility], [place], [address], [place] [facility] 4 18:18:40 Intolerant of heat and cold 116840540 Active 2023 Ganesh Richard MD Attn: Maribel workman,[address] [place], [address], [place] [facility] 4 18:18:42 Gout 28770717 Active 2023 Ganesh Richard MD Attn: Maribel workman,[address] [place], [address], [place] [facility] 4 18:18:46 Chronic low back pain 944485429 Active 2023 Ganesh Richard MD Attn: Maribel workman,[address] [place], [address], [place] [facility] 4 18:18:47 Benign prostatic hyperplasia without outflow obstruction 485828155 Active 2023 Ganesh Richard MD Attn: Maribel workman,[address] [place], [address], [place] [facility] 4 18:18:49 Hyperlipidemia 04418399 Active 2023 Ganesh Richard MD Attn: Maribel workman,[address] [place], [address], [place] [facility] 4 18:18:52 Chronic diastolic heart failure 380275948 Active 2024 Ganesh Richard MD Attn: Maribel workman,[address] [place], [address], [place] [facility] 5 20:49:50 Sleep disorder 78820047 Active 2024 Ganesh Richard MD Attn: Maribel workman,[address] [place], [address], [place] [facility] 5 20:53:31 Problem Notes None recorded. Procedures Surgical History Date Name Laterality Status Provider Name and Address Organization Details Recorded Time Eye Surgery completed She De Leon [place] [facility] 01/07/2024 11:30:13 Imaging Results Imaging Date Name Status LastModified by Organization Details LastModified Time 12/27/2022 colonoscopy screenin g (PROC) completed BARCODE Information not available 01/06/2024 16:45:38 06/29/2024 US, doppler, venous completed [address], [address], 07/09/2024 21:58:41 07/10/2024 CT, brain, w/o contrast completed [address], [address], 07/11/2024 12:29:15 07/10/2024 XR, chest, 2 view completed [address], [address], 07/11/2024 12:29:27 07/10/2024 XR, lumbar spine, 2 view completed [address], [address], 07/11/2024 12:29:40 07/10/2024 CT, lumbar spine, w/ o contrast completed [address], [address], 07/13/2024 11:42:23 07/11/2024 CT, angiogram, head, w/ contrast completed [address], [address], 07/14/2024 15:31:40 07/12/2024 MRI, brain, w/o contrast completed [address], [address], 07/14/2024 15:28:55 07/12/2024 US, echocardiogram completed [facility] [address] [facility] [address], [place], [address], 07/14/2024 15:29:15 07/13/2024 MRI, lumbar spine, w /o contrast completed [address], [place], [address], 07/14/2024 15:29:39 07/11/2024 electroencephalogram completed [address], [place], [address], 07/14/2024 15:30:28 07/27/2024 holter monitor completed [facility] [address] [facility] [address], [place], [address], 08/02/2024 16:18:51 10/31/2024 polysomnography, spl it night (PROC) completed [address], [place], [address], 11/13/2024 14:49:55 Procedure Notes None recorded. Medical Equipment None Reported. Allergies No known drug allergies Medications Name Sig Start Date Stop Date Status Note LastModified by Organization Details LastModified Time hydrocodone 5 mg-acetamino phen 325 mg tablet TAKE 1 TABLET BY MOUTH EVERY 4 HOURS NEEDED FOR PAIN RATED 4-6 12/07 completed Not Available Not Available Not Available sulfamethoxa zole 800 mg-trimethop rim 160 mg tablet TAKE 1 TABLET BY MOUTH TWICE A DAY 09/07 completed Not Available Not Available Not Available simvastatin 40 mg tablet TAKE 1 TABLET BY MOUTH EVERY DAY active Not Available Not Available No t Available tamsulosin 0.4 mg capsule TAKE 1 CAPSULE BY MOUTH EVERY DAY active Not Available Not Available No t Available lisinopril 20 mg-hydrochlo rothiazide 25 mg tablet TAKE 1 TABLET BY MOUTH EVERY DAY active Not Available Not Available No t Available allopurinol 300 mg tablet TAKE 1 TABLET BY MOUTH EVERY DAY active Not Available Not Available No t Available furosemide 20 mg tablet TAKE 1 TABLET [...] Not Available Not Available No t Available Xarelto 20 mg tablet TAKE 1 TABLET BY MOUTH EVERY DAY active Not Available Not Available No t Available Gemtesa 75 mg tablet TAKE 1 TABLET BY MOUTH [...] % 57 /min 177.8 cm 26.2 kg/m2 18142.3 3 g 116 mm[Hg] 62 mm[Hg] Iva Rebollar MA [facility] 4 11:38:56 Date Recorded Body height Body mass index (BMI) Body weight Oxygen saturation Oxygen saturation in Arterial blood by Pulse oximetry Heart rate Systolic blood pressure Diastolic blood pressure Provider Name and Address Organization Details Last Updated DateTime 4 177.8 cm 26.1 kg/m2 38486.8 1 g 98 % 98 % 71 /min 118 mm[Hg] 62 mm[Hg] She De Leno MA [facility] 4 11:47:45 Date Recorded Pain severity - 0-10 verbal numeric rating [Score] - Reported Provider Name and Address Organization Details Last Updated DateTime 01/13/2024 0 Antonia Overton [facility] 01/13/2024 11:50:00 Date Recorded Body height Body mass index (BMI) Body weight Heart rate Oxygen saturation Oxygen saturation in Arterial blood by Pulse oximetry Systolic blood pressure Diastolic blood pressure Provider Name and Address Organization Details Last Updated DateTime 4 177.8 cm 26.8 kg/m2 59470.7 7 g 67 /min 99 % 99 % 122 mm[Hg] 64 mm[Hg] Krystle Cash MA [facility] 4 11:33:17 Date Recorded Body height Body mass index (BMI) Body weight Heart rate Oxygen saturation Oxygen saturation in Arterial blood by Pulse oximetry Systolic blood pressure Diastolic blood pressure Provider Name and Address Organization Details Last Updated DateTime 4 177.8 cm 26.5 kg/m2 40299.7 9 g 70 /min 99 % 99 % 110 mm[Hg] 60 mm[Hg] Jackeline Murray MA [facility] 4 11:30:09 Date Recorded Body height Body mass index (BMI) Body weight Heart rate Oxygen saturation Oxygen saturation in Arterial blood by Pulse oximetry Systolic blood pressure Diastolic blood pressure Provider Name and Address Organization Details Last Updated DateTime 5 177.8 cm 28.1 kg/m2 40029.3 1 g 91 /min 99 % 99 % 112 mm[Hg] 72 mm[Hg] Jackeline Murray MA [facility] 5 11:10:09 Social History Question Answer Notes LastModified by Organizat ion Details LastModified Time Tobacco Smoking Status Never Smoker She De Leon MA [facility], [facility] 01/07/2024 11:28:47 Do You Have An Advance [...] Or The Highest Degree You Have Received? [id number] Information not available 01/13/2024 Are There Any Guns Present In Your Home? Yes Information not available 01/13/2024 In The Past 7 Days, How Many Days Did You Exercise? 0 Information not available 01/13/2024 In The Past 7 Days, How Much Pain Have You [place]? Some Information not available 01/13/2024 In General, [...] Past 7 Days, How Often Have You [place] Sleepy In The Daytime? Sometimes Information not available 01/13/2024 # Alcohol Drinks Per Week 0 Information not available 01/13/2024 What Was The Date Of Your Most Recent Tobacco Screening? 12/07/2024 [email or web address] Information not available 12/07/2024 What Is Your Relationship Status? Information not available 01/07/2024 Do You Use Your Seat Belt Or Car Seat Routinely? Yes Information not available 01/07/2024 Do You Have Smoke And Carbon Monoxide Detectors In Your Home? Yes Information not available 01/07/2024 Do You Feel Stressed (tense, Restless, Nervous, Or Anxious, Or Unable To Sleep At Night)? [id number] Information not available 01/07/2024 Do You Use [...] Atrial Fibrillation N High Blood Pressure Y Kidney or Bladder Problems N Thyroid Problems N GI Problems N Depression N COPD N Blood Clots N Skin Problems N Anemia N Heart Attack ([place]) N Anxiety Disorder N Diabetes N Muscle, Joint, or Bone Problems N Seizures/Epilepsy N Acid Reflux (GERD) N Cancer N Stroke N Asthma N Allergies N High Cholesterol Y Hepatitis N Liver Disease N Headaches N Heart Failure N Osteoporosis N Immunizations Vaccine Type Date Status Note Provider Nam e and Address Organization Details Recorded Time zoster recombinant 3 completed Antonia [place], [place] [facility] 01/12/2024 15:56:39 Influenza, high-dose, quadrivalent, PF 2 completed [place] [facility] 01/12/2024 15:56:39 Influenza, high-dose, quadrivalent, PF 0 completed [place] [facility] 01/12/2024 15:56:39 Influenza, high-dose, quadrivalent, PF 3 completed [place] [facility] 01/12/2024 15:56:39 Influenza, high-dose, quadrivalent, PF 1 completed [place] [facility] 01/12/2024 15:56:39 COVID-19, mRNA, LNP-S, PF, 30 mcg/0.3 mL dose 1 completed [place] [facility] 01/12/2024 15:56:39 COVID-19, mRNA, LNP-S, PF, 30 mcg/0.3 mL dose 1 completed [place] [facility] 01/12/2024 15:56:39 COVID-19, mRNA, LNP-S, PF, 30 mcg/0.3 mL dose 1 completed [place] [facility] 01/12/2024 15:56:39 COVID-19, mRNA, LNP-S, PF, 30 mcg/0.3 mL dose 1 completed [place] [facility] 01/12/2024 15:56:39 COVID-19, mRNA, LNP-S, PF, holly-sucrose, 30 mcg/0.3 mL 3 completed [place] [facility] 01/12/2024 15:56:39 Pneumococcal conjugate PCV 13 0 completed [place] - [facility] 01/12/2024 15:56:39 Influenza, high-dose, trivalent, PF 8 completed [place] [facility] 01/12/2024 15:56:39 Influenza, high-dose, trivalent, PF 7 completed [place] [facility] 01/12/2024 15:56:39 Influenza, high-dose, trivalent, PF 6 completed [place] [facility] 01/12/2024 15:56:39 Influenza, high-dose, trivalent, PF 9 completed [place] [facility] 01/12/2024 15:56:39 Influenza, split virus, trivalent, preservative 3 completed [place] [facility] 01/12/2024 15:56:39 Influenza, split virus, trivalent, PF 4 completed [place] [facility] 01/12/2024 15:56:39 Influenza, split virus, quadrivalent, PF 5 completed [place] [facility] 01/12/2024 15:56:39 Pneumococcal conjugate PCV20, polysaccharide MKS680 conjugate, adjuvant, PF 4 completed Ganesh Richard MD Attn: Accounting,[address] [place], [address], [place] [facility] 01/13/2024 13:57:07 Past Encounters Encounter ID Performer Location Encounter Start Date Encounter Closed Date Diagnosis/Indication Diagnosis SNOMED-CT Code Diagnosis ICD10 Code Diagnosis Note [id number] Ganesh Richard MD [facility] (Adult Med) [address] [place] [address] 01/07/2024 10:55:46 01/07/2024 12:15:54 Male hot flash [id number] 38685 R23.2 He is having heat and cold intoleranc e Atrial fibrillation 4943 6004 I48.91 Intolerant of heat and cold 277838680 R68.89 Gout 20966720 M10.9 Chronic low back pain 27 7550419 M54.50 Benign pro static hyperplasia without outflow obstruction 746892289 N40.0 Hyperlipidemia 50449805 E78.5 [id number] Ganesh Richard MD [facility] [employer] - [place] [address] [place] [address] 01/13/2024 11:34:24 01/13/2024 12:56:43 Adult health examination 726786280 Z00.00 Health Risk Assessment collected and reviewed Administra tion of pneumococcal vaccine 65078997 Z23 [id number] Ganesh Richard MD [facility] [employer] - [place] [address] [place] [address] 05/11/2024 11:22:14 05/11/2024 12:20:52 Hyperlipidemia 28183887 E78.5 Gout 44257709 M10.9 Chronic low back pain 27 5504986 M54.50 Benign pro static hyperplasia without outflow obstruction 197240415 N40.0 Atrial fibrillation 4943 6004 I48.91 [id number] Ganesh Richard MD [facility] [employer] - [place] [address] [place] [address] 09/07/2024 11:19:20 09/07/2024 12:28:14 Body mass index 25-29 - overweight 694804841 Z68.26 Overweight 600297158 E66 .3 Sleep disorder 31753967 G47.9 Atrial fibrillation 4943 6004 I48.91 Chronic di astolic heart failure 381711918 I50.32 Chronic low back pain 27 7642511 M54.50 Benign pro static hyperplasia without outflow obstruction 061193603 N40.0 Gout 26325072 M10.9 Hyperlipidemia 48309347 E78.5 [id number] Ganesh Richard MD [facility] [address] [place] [address] 12/07/2024 10:51:57 12/07/2024 11:56:52 Body mass index 25-29 - overweight 836607078 Z68.26 Overweight 828687065 E66 .3 Hyperlipidemia 49130530 E78.5 Long-term drug therapy 336469639 Z79.899 Chronic di astolic heart failure 673760403 I50.32 Atrial fibrillation 4943 6004 I48.91 Gout 86566178 M10.9 Chronic low back pain 27 6422151 M54.50 Sleep disorder 51645692 G47.9 Benign pro static hyperplasia without outflow obstruction 543097159 N40.0 Health Concerns Section Related Observation LastModified by Organization Detai ls LastModified Time None Recorded Concern Status LastModified by Organization Details LastModified Time None Recorded Advance Directives Directive Y: Payers Encounter Date Sequence Insurance Name Policy Number Policy Cavanaugh Covered Member ID Cavanaugh Member ID Guarantor Name 01/07/2024 1 [employer] (MEDICARE REPLACEMENT PPO) [id number] Gera Cruz [id number] Gera Cruz 01/13/2024 1 [employer] (MEDICARE REPLACEMENT PPO) [id number] Gera Cruz [id number] Gera Cruz 05/11/2024 1 [employer] (MEDICARE REPLACEMENT PPO) [id number] Gera Cruz [id number] Gera Cruz 09/07/2024 1 [employer] (MEDICARE REPLACEMENT PPO) [id number] Gera Cruz [id number] Gera Cruz 12/07/2024 1 [employer] (MEDICARE REPLACEMENT PPO) [id number] Gera Cruz [id number] Gera Cruz Notes Date Note Type Note [...] diet. Ganesh Richard MD Attn: Accounting,[address] [place], [address], [facility] 01/08/2024 18:20:21 01/13/2024 text/html MAW 2Reported bypatient.Diet [...] the home;fire arms Ganesh Richard MD Attn: Accounting[address] [place], [address], [facility] 01/13/2024 13:57:48 05/11/2024 text/html He has had some heat or cold intolerance. Hypertension no headache no dizziness. Chronic back pain stable BPH has been doing fine on his tamsulosin atrial fibrillation anticoagulated and on nebivolol as well dyslipidemia does take his simvastatin tries to watch his diet. Ganesh Richard MD Attn: Accounting,[address], [place], [address], [facility] 05/11/2024 22:54:41 09/07/2024 text/html he was found to have pauses on Holter nebivolol was stopped. He has had no further syncopal episodes back pain has been stable hypertension controlled BPH doing fine on tamsulosin atrial fibrillation rate controlled anticoagulated diastolic heart failure no PND no orthopnea gout no flare-ups Ganesh Richard MD Attn: Accounting,[address], [place], [address], [facility] 10/02/2024 20:54:06 12/07/2024 text/html back has been do ing okay energy level fair he has not had any problems trying to follow a low-fat diet he needs a titration and a sleep study he has severe sleep apnea with oxygen desaturation there has been no gout flare-ups his diastolic heart failure has been stable atrial fibrillation has been asymptomatic. His BPH doing well on tamsulosin Ganesh Richard MD Attn: Accounting,[address], [place], [address], [facility] 12/10/2024 12:30:46
--- OUTSIDE RECORDS SUMMARY | 2025-01-03 08:06 | XMS_ITS | Referral Summary ---
Author Organization [facility] [address] [facility] [address] [place] [address] Care Team Providers Care Dental Surgery Doctor Name Role Phone Mahamed Richard MD Primary Care Provider Encounters Date Type Department Care Team Description 12/07/2024 11:15 AM CDT - 12/07/2024 11:59 PM [place] [address] Hyperlipemia; Need for prophylactic chemotherapy Discharge Disposition: Discharge to home or self care 12/07/2024 11:15 AM CDT Lab [facility] Outpatient Lab at [address] [address] Hyperlipemia (Primary Dx); Need for prophylactic chemotherapy from Last 3 Months Allergies No known active allergies Medications lisinopril-hydro CHLOROthiazide (ZESTORETIC) 20-25 mg per tablet 12/17/2020 Active simvastatin (ZOCOR) 40 mg tablet 12/17/2020 Active tamsulosin (FLOMAX) 0.4 mg extended release capsule 12/17/2020 Active allopurinoL (ZYLOPRIM) 300 mg tablet 12/17/2020 Active xwtrkaxh-rlr-QA- lycopen-lutein (Centrum Silver) 0.4-300-250 mg-mcg-mcg tablet Centrum [...] Dizziness 11/21/2021 Chronic anticoagulation 01/20/2021 Atrial fibrillation 01/20/2021 Dyslipidemia 01/20/2021 Essential hypertension 01/20/2021 Pain [...] on file Legal Sex 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 Gender Identity Not on file Sexual Orientation Not on file Last Filed Vital Signs Vital Sign Reading Time Taken Comments Blood Pressure 110/60 08/31/2024 11:24 AM RESPIRATORY ASSISTANT Pulse 76 08/31/2024 11:24 AM RESPIRATORY ASSISTANT Temperature - - Respiratory Rate - - Oxygen Saturation 98% 08/31/2024 11:24 AM RESPIRATORY ASSISTANT Inhaled Oxygen Concentration - - Weight 84.9 kg (187 lb 1.6 oz) 08/31/2024 11:24 AM RESPIRATORY ASSISTANT Height 177.8 cm (5' 10 ) 08/31/2024 11:24 AM RESPIRATORY ASSISTANT Body Mass Index 26.85 08/31/2024 11:24 AM RESPIRATORY ASSISTANT Plan of Treatment Not on file Procedures Procedure Name Priority Date/Time Associated Diagnosis Comments EGFR Routine 12/07/2024 11:15 AM CDT Hyperlipemia Need for prophylactic chemotherapy DIFFERENTIAL AUTO Routine 12/07/2024 11: 15 AM CDT Hyperlipemia Need for prophylactic chemotherapy COMPREHENSIVE METABOLIC PANEL Routine 12/07/2024 11:15 AM CDT Hyperlipemia Need for prophylactic chemotherapy LIPID PANEL Routine 12/07/2024 11:15 AM CDT Hyperlipemia Need for prophylactic chemotherapy CBC WITH AUTO DIFFERENTIAL Routine 12/07/2024 11:15 AM CDT Hyperlipemia Need for prophylactic chemotherapy from Last 3 Months Results * (ABNORMAL) eGFR (12/07/2024 11:15 AM CDT) eGFR 49(L) >=60 mL/min/1. 73 m2 Comment: Interpretive Data Reference Interval Normal >/= 90 mL/min/1.73m2 Mildly decreased* 60 - 89 mL/min/1.73m2 Mildly to moderately decreased 45 - 59 mL/min/1.73m2 Moderately to severely decreased 30 - 44 mL/min/1.73m2 Severely decreased 15 - 29 mL/min/1.73m2 Kidney Failure < 15 mL/min/1.73m2 *Relative to young adult level Estimated glomerular filtration rate is determined by the 2020 CKD-EPI equation recommended by the National Kidney Foundation (A Unifying Approach to GFR Estimation: Recommendations of the NKF-ASK Task Force on Reassessing the Inclusion of Race in Diagnosing Kidney Disease, JASN 2020). The CKD-EPI equation should not be used for patients with unstable renal function and has not been validated in children and those over 70. Current interpretive data was last reviewed 2021. Blood 12/07/2024 11:1 5 AM CDT 12/07/2024 2:01 PM CDT us Mahamed Richard MD LAB BLOOD ORDERABLES Final R esult [facility] [address] Department [place] [address] * Differential, auto (12/07/2024 11:15 AM CDT) Neutrophil abs 4.5 1.5 - 6.5 K/cumm Imm gran abs 0.0 0.0 - 0.1 K/cumm [facility] Lymphocyte abs 1.9 0.8 - 3.3 K/cumm [facility] Monocyte abs 0.5 0.2 - 0.8 K/cumm [facility] Eosinophil abs 0.1 0.0 - 0.5 K/cumm [facility] Basophil abs 0.1 0.0 - 0.1 K/cumm [facility] Neutrophil pct 64.1 % [facility] Comment: Interpretive Data Percent cell count reference ranges are not reported, since discordance with absolute values may lead to misinterpretation of CBC data. Current Interpretive Data was last revised on 2018. Imm gran pct 0.3 % [facility] Comment: Interpretive Data Percent cell count reference ranges are not reported, since discordance with absolute values may lead to misinterpretation of CBC data. Current Interpretive Data was last revised on 2018. Lymphocyte pct 26.5 % [facility] Comment: Interpretive Data Percent cell count reference ranges are not reported, since discordance with absolute values may lead to misinterpretation of CBC data. Current Interpretive Data was last revised on 2018. Monocyte pct 7.1 % [facility] Comment: Interpretive Data Percent cell count reference ranges are not reported, since discordance with absolute values may lead to misinterpretation of CBC data. Current Interpretive Data was last revised on 2018. Eosinophil pct 1.0 % [facility] Comment: Interpretive Data Percent cell count reference ranges are not reported, since discordance with absolute values may lead to misinterpretation of CBC data. Current Interpretive Data was last revised on 2018. Basophil pct 1.0 % [facility] Comment: Interpretive Data Percent cell count reference ranges are not reported, since discordance with absolute values may lead to misinterpretation of CBC data. Current Interpretive Data was last revised on 2018. Blood 12/07/2024 11:1 5 AM CDT 12/07/2024 1:54 PM CDT us Mahamed Richard MD LAB BLOOD ORDERABLES Final R esult [facility] [address] Department [place] [address] * (ABNORMAL) CBC with auto differential (12/07/2024 11:15 AM CDT) WBC 7.0 3.8 - 9.9 K/cumm Hgb 12.2(L) 13.0 - 17.5 g/dL [facility] Hct 39.1 38.9 - 50.3 % [facility] Plt 187 150 - 400 K/cumm [facility] MPV 10.9 9.1 - 12.3 fL [facility] RBC 4.03(L) 4.30 - 5.80 M/cumm [facility] MCV 97.0(H) 81.3 - 96.4 fL [facility] MCH 30.3 27.1 - 33.3 pg [facility] MCHC 31.2(L) 32.3 - 35.7 g/dL [facility] RDW CV 13.8 11.1 - 14.9 % [facility] RDW SD 49.2(H) 35.7 - 48.1 fL [facility] NRBC abs 0.00 0.00 - 0.01 K/cumm [facility] Blood 12/07/2024 11:1 5 AM CDT 12/07/2024 1:54 PM CDT Narrative [facility] - 12/07/2024 2:11 PM CDT Fax results To Dr Mahamed Richard [phone] us Mahamed Richard MD LAB BLOOD ORDERABLES Final R esult [facility] [address] Department [place] [address] * Lipid panel (12/07/2024 11:15 AM CDT) Cholesterol 186 30 - 199 mg/dL Comment: Interpretive Data Ages < or = 19 years Acceptable: <170 mg/dL Borderline high: 170-199 mg/dL High: >or= 200 mg/dL Ages > or = 20 years Desirable: <200 mg/dL Borderline high: 200-239 mg/dL High: >or= 240 mg/dL Literature References: 1. Expert Panel on Integrated Guidelines for Cardiovascular Health and Risk Reduction in Children and Adolescents. Pediatrics 2011;128:S213 2. NCEP Expert Panel. Circulation 2004;110:227 Current Interpretive Data was last revised on 2018. Triglycerides 78 <=149 mg/dL [facility] Comment: Interpretive Data Ages < or = 9 years Acceptable: <75 mg/dL Borderline high: 75-99 mg/dL High: >or= 100 mg/dL Ages 10 to 20 years Acceptable: <90 mg/dL Borderline high: 90-129 mg/dL High: >or= 130 mg/dL Ages > or = 20 years Desirable: <150 mg/dL Borderline high: 150-199 mg/dL High: 200-499 mg/dL Very high: >or= 499 mg/dL Literature References: 1. Expert Panel on Integrated Guidelines for Cardiovascular Health and Risk Reduction in Children and Adolescents. Pediatrics 2011;128:S213 2. NCEP Expert Panel. Circulation 2004;110:227 Current Interpretive Data was last revised on 2018. HDL 60 >=40 mg/dL [facility] Comment: Interpretive Data Ages < or = 19 years Acceptable: >45 mg/dL Borderline low: 40-45 mg/dL Low: <40 mg/dL Ages > or = 20 years Desirable: >or= 60 mg/dL Low: <40 mg/dL Literature References: 1. Expert Panel on Integrated Guidelines for Cardiovascular Health and Risk Reduction in Children and Adolescents. Pediatrics 2011;128:S213 2. NCEP Expert Panel. Circulation 2004;110:227 Current Interpretive Data was last revised on 2018. LDL, calculated 112 <=129 mg/dL [facility] Comment: Interpretive Data Ages < or = 19 years Acceptable: <110 mg/dL Borderline high: 110-129 mg/dL High: >or= 130 mg/dL Ages > or = 20 years Optimal: <100 mg/dL Near optimal: 100-129 mg/dL Borderline high: 130-159 mg/dL High: >160 mg/dL Calculated using the Soham LDL-C estimating equation. This equation was implemented on 2024. Prior to this date LDL-C was estimated using the Friedewald equation. Literature References: 1. Expert Panel on Integrated Guidelines for Cardiovascular Health and Risk Reduction in Children and Adolescents. Pediatrics 2011;128:S213 2. NCEP Expert Panel. Circulation 2004;110:227 3. Soham Frost et al. KEVON Cardiol. 2020 January 25;5(5):540-548. doi: 10.1001/[email or web address].2020.0013 Current Interpretive Data was last revised on 2024. Non-HDL Cholesterol 126 mg/dL [facility] Comment: Interpretive Data Ages < or = 19 years Acceptable: <120 mg/dL Borderline high: 120-144 mg/dL High: >145 mg/dL Ages > or = 20 years When triglycerides are >200 mg/dL, Non-HDL cholesterol is a secondary target of therapy with treatment goals that are 30 mg/dL greater than the LDL cholesterol target. Literature References: 1. Expert Panel on Integrated Guidelines for Cardiovascular Health and Risk Reduction in Children and Adolescents. Pediatrics 2011;128:S213 2. NCEP Expert Panel. Circulation 2004;110:227 Current Interpretive Data was last revised on 2018. Chol/HDL ratio 3 [facility] Blood Venous blood specimen / Unknown 12/07/2024 11:15 AM CDT 12/07/2024 1:54 PM CDT Narrative [facility] - 12/07/2024 2:23 PM CDT Fax results To Dr Mahamed Richard [phone] Mahamed Richard MD LAB BLOOD ORDERABLES Final R esult [facility] [address] Department [place] [address] * (ABNORMAL) Comprehensive metabolic panel (12/07/2024 11:15 AM CDT) Sodium 141 135 - 145 mmol/L Potassium, pl 4.3 3.3 - 4.9 mmol/L [facility] Chloride 104 97 - 110 mmol/L [facility] CO2 27 22 - 32 mmol/L [facility] Anion gap 10 2 - 15 mmol/L [facility] BUN 22 6 - 25 mg/dL [facility] Creatinine 1.40(H) 0.80 - 1.30 mg/dL [facility] Glucose 107 70 - 199 mg/dL [facility] Comment: Interpretive Data Fasting glucose >/= 126 mg/dl is diagnostic for diabetes. Fasting is defined as no caloric intake for at least 8 hours. Fasting glucose between 100 mg/dl to 125 mg/dl is diagnostic of prediabetes. In a patient with classic symptoms of hyperglycemia or hyperglycemic crisis, a random glucose >/= 200 mg/dl is diagnostic for diabetes. In the absence of unequivocal hyperglycemia, results should be confirmed by repeat testing. The classification and Diagnosis of Diabetes Diabetes Care 2021; 46: S19-S40. Current interpretive data was last revised 2022. Calcium 9.9 8.5 - 10.3 mg/dL [facility] Bilirubin, total 0.7 0.1 - 1.2 mg/dL [facility] Protein, pl 7.0 6.5 - 8.5 g/dL [facility] Albumin 4.1 3.5 - 5.0 g/dL [facility] Alk phos 56 40 - 130 Units/L [facility] ALT 13 7 - 55 Units/L [facility] AST 26 10 - 50 Units/L [facility] Blood Venous blood specimen / Unknown 12/07/2024 11:15 AM CDT 12/07/2024 1:54 PM CDT Narrative [facility] - 12/07/2024 2:23 PM CDT Fax results To Dr Mahamed Richard [phone] Mahamed Richard MD LAB BLOOD ORDERABLES Final R esult [facility] [address] Department [place] [address] from Last 3 Months Insurance [employer] MEDICARE Care Teams Dental Surgery Doctor Relationship Specialty Start Date End Date Mahamed Richard MD PCP - General Internal Medicine 01/08/21
--- OUTSIDE RECORDS SUMMARY | 2025-01-03 08:06 | XMS_ITS | Clinical Summary ---
Author Organization [facility] [address] [facility] [address] Address [address] [place] [address] Care Team Providers Care Audience Development Manager Name Role Phone Mahamed Richard MD Primary Care Provider [phone] Allergies No known active allergies Medications lisinopril-hydro CHLOROthiazide (ZESTORETIC) 20-25 mg per tablet 12/17/2020 Active simvastatin (ZOCOR) 40 mg tablet 12/17/2020 Active tamsulosin (FLOMAX) 0.4 mg extended release capsule 12/17/2020 Active allopurinoL (ZYLOPRIM) 300 mg tablet 12/17/2020 Active nmndtlnd-wzs-PB- lycopen-lutein (Centrum Silver) 0.4-300-250 mg-mcg-mcg tablet Centrum [...] - 12/07/2024 11:59 PM CDT Hospital Encounter [address] [address] Hyperlipemia; Need for prophylactic chemotherapy Discharge Disposition: Discharge to home or self care 12/07/2024 11:15 AM CDT Lab [facility] Outpatient Lab at [address] [address] Hyperlipemia (Primary Dx); Need for prophylactic chemotherapy from Last 3 Months Medical History Medical [...] on file 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 Gender Identity Not on file Sexual Orientation Not on file Obstetrics History Last Filed Vital Signs Vital Sign Reading Time Taken Comments Blood Pressure 110/60 08/31/2024 11:24 AM QUALITY ASSURANCE ASSISTANT Pulse 76 08/31/2024 11:24 AM QUALITY ASSURANCE ASSISTANT Temperature - - Respiratory Rate - - Oxygen Saturation 98% 08/31/2024 11:24 AM QUALITY ASSURANCE ASSISTANT Inhaled Oxygen Concentration - - Weight 84.9 kg (187 lb 1.6 oz) 08/31/2024 11:24 AM QUALITY ASSURANCE ASSISTANT Height 177.8 cm (5' 10 ) 08/31/2024 11:24 AM QUALITY ASSURANCE ASSISTANT Body Mass Index 26.85 08/31/2024 11:24 AM QUALITY ASSURANCE ASSISTANT Plan of Treatment Health Maintenance Due Date Last Done Comments Depression Screening 1940 Fall Risk Assessment 1940 DTaP/Tdap/Td Vaccine (1 - Tdap) 1950 Hepatitis B Screening 1957 Zoster Vaccine (1 of 2) 1989 Well Visit 65+ 2004 Pneumococcal vaccine 65+ (2 of 2 - PPSV23) 08/20/2021 08/20/2020 Influenza Vaccine (#1) 2024 0, 07/25/2019, 07/05/2018, Additional history exists Procedures Procedure Name Priority Date/Time Associated Diagnosis [...] MD LAB BLOOD ORDERABLES Final R esult [facility] [address] Department [place] [address] * Differential, auto (12/07/2024 11:15 AM CDT) Neutrophil abs 4.5 1.5 - 6.5 K/cumm Imm gran abs 0.0 0.0 - 0.1 K/cumm [facility] Lymphocyte abs 1.9 0.8 - 3.3 K/cumm [facility] Monocyte abs 0.5 0.2 - 0.8 K/cumm [facility] Eosinophil abs 0.1 0.0 - 0.5 K/cumm [facility] Basophil abs 0.1 0.0 - 0.1 K/cumm [facility] Neutrophil pct 64.1 % [facility] Comment: Interpretive Data Percent cell count reference ranges are not reported, since discordance with absolute values may lead to misinterpretation of CBC data. Current Interpretive Data was last revised on 2018. Imm gran pct 0.3 % [facility] Comment: Interpretive Data Percent cell count reference ranges are not reported, since discordance with absolute values may lead to misinterpretation of CBC data. Current Interpretive Data was last revised on 2018. Lymphocyte pct 26.5 % [facility] Comment: Interpretive Data Percent cell count reference ranges are not reported, since discordance with absolute values may lead to misinterpretation of CBC data. Current Interpretive Data was last revised on 2018. Monocyte pct 7.1 % [facility] Comment: Interpretive Data Percent cell count reference ranges are not reported, since discordance with absolute values may lead to misinterpretation of CBC data. Current Interpretive Data was last revised on 2018. Eosinophil pct 1.0 % [facility] Comment: Interpretive Data Percent cell count reference ranges are not reported, since discordance with absolute values may lead to misinterpretation of CBC data. Current Interpretive Data was last revised on 2018. Basophil pct 1.0 % [facility] Comment: Interpretive Data Percent cell count reference ranges are not reported, since discordance with absolute values may lead to misinterpretation of CBC data. Current Interpretive Data was last revised on 2018. Blood 12/07/2024 11:1 5 AM CDT 12/07/2024 1:54 PM CDT Mahamed Richard MD LAB BLOOD ORDERABLES Final R esult Performing Organization Address City/[facility] Co de Phone Number [facility] [id number] Department [place] [address] * (ABNORMAL) CBC with auto differential (12/07/2024 11:15 AM CDT) WBC 7.0 3.8 - 9.9 K/cumm Hgb 12.2(L) 13.0 - 17.5 g/dL [facility] Hct 39.1 38.9 - 50.3 % [facility] Plt 187 150 - 400 K/cumm [facility] MPV 10.9 9.1 - 12.3 fL [facility] RBC 4.03(L) 4.30 - 5.80 M/cumm [facility] MCV 97.0(H) 81.3 - 96.4 fL [facility] MCH 30.3 27.1 - 33.3 pg [facility] MCHC 31.2(L) 32.3 - 35.7 g/dL [facility] RDW CV 13.8 11.1 - 14.9 % [facility] RDW SD 49.2(H) 35.7 - 48.1 fL [facility] NRBC abs 0.00 0.00 - 0.01 K/cumm [facility] Blood 12/07/2024 11:1 5 AM CDT 12/07/2024 1:54 PM CDT Narrative [facility] - 12/07/2024 2:11 PM CDT Fax results To Dr Mahamed Richard [phone] Mahamed Richard MD LAB BLOOD ORDERABLES Final R esult Performing Organization Address City/[facility]/ZIP Co de Phone Number [facility] [phone] [facility] Department [place] [address] * Lipid panel (12/07/2024 11:15 AM CDT) [...] on 2018. Triglycerides 78 <=149 mg/dL [facility] Comment: Interpretive Data Ages < or = [...] on 2018. HDL 60 >=40 mg/dL [facility] Comment: Interpretive Data Ages < or = [...] 2018. LDL, calculated 112 <=129 mg/dL [facility] Comment: Interpretive Data Ages < or = [...] NCEP Expert Panel. Circulation 2004;110:227 3. Soham M et al. KEVON Cardiol. 2020 January 25;5(5):540-548. doi: [email or web address] Current Interpretive Data was last revised on 2024. Non-HDL Cholesterol 126 mg/dL [facility] Comment: Interpretive Data Ages < [...] last revised on 2018. Chol/HDL ratio 3 [facility] Blood Venous blood specimen / Unknown 12/07/2024 11:15 AM CDT 12/07/2024 1:54 PM CDT Narrative [facility] - 12/07/2024 2:23 PM CDT Fax results To Dr Mahamed Richard [phone] us Mahamed Richard MD LAB BLOOD ORDERABLES Final R esult [facility] [address] Department [place] [address] * (ABNORMAL) Comprehensive metabolic panel (12/07/2024 11:15 AM CDT) Sodium 141 135 - 145 mmol/L Potassium, pl 4.3 3.3 - 4.9 mmol/L [facility] Chloride 104 97 - 110 mmol/L [facility] CO2 27 22 - 32 mmol/L [facility] Anion gap 10 2 - 15 mmol/L [facility] BUN 22 6 - 25 mg/dL [facility] Creatinine 1.40(H) 0.80 - 1.30 mg/dL [facility] Glucose 107 70 - 199 mg/dL [facility] Comment: Interpretive Data Fasting glucose >/= 126 [...] CDT Fax results To Dr Mahamed Richard [phone] Mahamed Richard MD LAB BLOOD ORDERABLES Final R esult [facility] [address] Department [place] [address] from Last 3 Months Insurance [employer] MEDICARE Care Teams Audience Development Manager Relationship Specialty Start Date End Date Mahamed Richard MD PCP - General Internal Medicine 01/08/21
[2025-01-17 13:00] VITALS: BMI 27.2
--- NOTE | 2025-01-17 13:00 | P.SLEEP_ITS ---
Sleep Study Date of Study: 01/03/25 Ordering Provider: Mahamed Richard, Interpreting Physician: Rebekah Nino DO Sleep Study Type: CPAP Titration Height: 1.78 m Weight: 86.183 kg Body Mass Index: 27.2 Neck Circumference (inches): 15 Ambler: 3 Reason for Sleep Study Split study on 10/31/2024 showed an overall AHI of 49.7 with desaturation down to 74%. No optimal pressure found during titration portion of study. Sleep History Gera Cruz is an 84-year-old man with Holter monitoring showing pauses and a history of syncopal events. He has atrial fibrillation which is rate controlled, and he is anticoagulated. He also has has chronic diastolic heart failure. He never wakes at night with heartburn, belching or coughing.??He occasion snores. He never has trouble sleeping when he has a cold. He never wakes up gasping for breath during the night. He he occasionally has breathing problems at night. He never sweats excessively at night. He never notices his heart pounding or beating irregularly during the night. He frequently falls asleep during the day. He frequently falls asleep involuntarily, although never falls asleep while driving. He never experiences loss of muscle tone with strong emotion. He she never has daytime difficulty at work due to excessive sleepiness. He never feels paralyzed on waking or falling asleep. He never experiences vivid dreams upon waking or falling asleep. He never feels afraid of going to sleep. He screams at times during the night. He does not recalls his dreams. He frequently has thoughts racing through his mind. He never feels sad or depressed. He never feels anxiety. He never notices parts of his body jerk. He never kicks during the night. He never feels crawling or aching feelings in his legs. He occasionally feels leg pain at night. He never has morning jaw pain, never grinds his teeth at night. He constant feels bothered by pain in his head and back during the day, never awakened by pain during the night. He constantly wakes up feeling stiff in the morning, and he constantly wakes feeling sore or achy. He constantly awakens with pain in his neck, spine, or joints. He has fatigue, dizziness, headaches, and memory problems. He is usually drowsy for an hour after waking. Normal bedtime is 11:30 p.m., falling asleep within 15 minutes, waking for times at night to go to the bathroom. He typically gets between 8 and 10 hours of sleep per night. His wake up time is between 8:00 a.m. and 9:00 a.m.. He maintains the same schedule on weekends. He takes naps in the day, however he is not refreshed after a short 10-15 minute nap. 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 Patient denies any known history of CVA or symptoms. Chronic anticoagulation Paroxysmal atrial fibrillation Essential hypertension Surgical History Surgical History Status post open reduction with internal fixation of fracture Right tibia Hx of cholecystectomy History of colonoscopy with polypectomy (2020) Status post cataract extraction of both eyes with insertion of intraocular lens Family History Family History Mother Cerebrovascular accident Social History Social History Social History: The patient lives at home with his of 62 years. They raised 3 daughters. The patient still drives. 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 He is a lifelong nonsmoker and does not drink alcohol. Code status: DNR/DNI (the patient states that if he were in a pre arrest situation with a cardiac arrhythmia he would be okay with external pacing or medications to keep his heart rate up however if his heart actually stopped he would not want extraordinary measures with CPR or ventilator support.) Surrogate decision maker: Mary Blank () Smoking status: Never smoker Alcohol intake: never Substance use: never Do You Feel Safe in your Home?: Yes Lack of Transportation: No Lack of Food: Never True Current Housing: I Have Housing Concerned About Future Housing: No Difficulty Paying Gas/Electric Bills: No Difficulty Paying for Meds: No Currently Unemployed: No Education: Bachelor's Degree Difficulty w/ Childcare or Family Care: No Living arrangements: with family Gender identity (if verbalized by the patient): Male Spiritual care concerns: No Medications Home Medications ?Medication ?Instructions ?Recorded ?Confirmed ?Type Adult One Daily Multivitamin 1 tablet PO DAILY 12/13/20 07/10/24 History simvastatin 40 mg tablet 40 mg PO DAILY 12/13/20 07/10/24 History tamsulosin 0.4 mg capsule 0.4 mg PO DAILY 12/13/20 07/10/24 History allopurinol 300 mg tablet 300 mg PO DAILY 07/10/24 07/10/24 History lisinopril 20 1 tablet PO DAILY 07/10/24 07/10/24 History mg-hydrochlorothiazide 25 mg tablet rivaroxaban 20 mg tablet (Xarelto) 20 mg PO DAILY 07/10/24 07/10/24 History hydrocodone 5 mg-acetaminophen 325 1 tablet PO Q4H PRN Pain Rated 4-6 07/14/24 Rx mg tablet #30 tabs Sleep Procedure A full night CPAP Titration using the GitHub multi-channel system recorded the standard physiologic parameters including EEG, EOG, submentalis EMG, anterior tibialis EMG, EKG, body position, nasal and oral airflow using nasal pressure sensor and thermistor.? Respiratory parameters of chest and abdominal movements were recorded with Respiratory Inductance Plethysmography belts. Oxygen saturation was recorded by pulse oximetry. Video monitoring was also performed. Sleep stages, periodic limb movements, and EEG arousals were scored in 30 second epochs according to the criteria of the AASM Scoring Manual. The Apnea-Hypopnea Index was calculated using CMS guidelines for definition of hypopnea with 4% O2 desaturations while scoring respiratory events. Sleep Architecture The total recording time was 432.7 minutes.? The total sleep time was 340.0 minutes. Sleep latency was 12.8 minutes. REM latency was 221.5 minutes. Sleep efficiency was 78.6%. The patient had 29 awakenings for an awakening index of 5.1. Wake after Sleep Onset time was 79.5 minutes. The patient spent 20.0 minutes, 5.9% of total sleep time in Stage N1. The patient spent 294.0 minutes, 86.5% in Stage N2. The patient spent 0.0 minutes, 0.0% in Stage N3. The patient spent 26.0 minutes, 7.6% in Stage REM. Respiratory Analysis The patient had 6 hypopneas, 69 obstructive apneas, 12 mixed apneas, and 15 central apneas for an overall Apnea Hypopnea Index of 18.0 events per hour. The REM Apnea Hypopnea Index was 11.5. The NREM Apnea Hypopnea Index was 18.5. The patient had a Central Apnea Hypopnea Index of 2.6. Bao Dinh Respirations were present during this study. The cycle length was 65 seconds. The circulation time was 41.3 seconds. The patient was started CPAP 5 cm H2O and titrated to CPAP 15 cm H2O. The patient was able to fall asleep starting on CPAP 5 cm H2O. The patient was able to achieve REM sleep starting on CPAP 12 cm H2O. The patient was able to achieve a residual AHI less than 5 with both NREM and REM sleep in the supine position on 14 cm H2O. On CPAP 14 cm H2O, the patient spent 77 minutes in NREM and 8.5 minutes in REM with 1 obstructive apnea, 5 central apneas and 1 mixed apnea, resulting in an AHI of 4.9. The patient had a sleep efficiency of 92.4% on this pressure setting. The FITNESS PLAN COORDINATOR resolved on the optimal pressure setting. Arousals There were 61 total arousals for an arousal index of 10.8. There were 21 spontaneous arousals for an index of 3.7. ?There were 18 arousals due to res piratory events for an index of 3.2. There were 15 arousals due to periodic limb movements for an index of 2.6.? There were 8 arousals due to isolated limb movements for an index of 1.4. Periodic Limb Movements The patient had 29 isolated limb movements with an index of 5.1. The patient had 589 periodic limb movements with index of 103.9, which is elevated (normal < 15). Patient had a total of 618 limb movements with a total limb movement index of 109.1. Oximetry Data The patient had an average oxygen saturation of 95.8% in sleep with a minimum oxygen saturation of 76.0% and a maximum oxygen saturation of 99.0%. The patient had 62 oxygen desaturations that were 4% or greater resulting in an Oxygen Desaturation Index of 10.9.? The patient spent 2.4 minutes, 0.6% of total sleep time with an oxygen saturation below 88%. Snoring Profile Mild snoring was present in the beginning of the study. Cardiac Profile The EKG showed normal sinus rhythm with frequent PVCs. Distinct P waves were not seen at times. The patient had an average pulse rate of 53.4 bpm with a minimum pulse rate of 37.0 bpm and a maximum pulse rate of 84.0 bpm. ? EEG Profile No signs of seizure activity seen. Assessment and Plan Assessment and Plan (1) RAMONA (obstructive sleep apnea): Code(s): G47.33 - Obstructive sleep apnea (adult) (pediatric) Status: Acute Assessment and Plan: The patient was started CPAP 5 cm H2O and titrated to CPAP 15 cm H2O. We were able to find a CPAP pressure that resolved his sleep apnea. I recommend that the patient be prescribed CPAP 14 cm H2O, size medium Resmed Mirage Quattro full face mask, CPAP filters/tubing and heated humidity. This should be used with all episodes of sleep.? Compliance should be reviewed within 31-90 days of starting therapy for usage greater than 4 hours per night greater than 70% of the nights. The patient should be asked about symptoms such as?excessive daytime sleepiness, quality of sleep, decreased nocturia, increased?mental functioning such as memory, mood, and concentration. The patient had a significant number of limb movements during the study with the majority being periodic in nature. The patient's sleep history does not suggest Restless Leg Syndrome. I recommend that the patient have a serum ferritin drawn for evaluation of iron deficiency anemia. If the patient has a serum ferritin less than 75 ng/mL, I recommend starting a daily iron supplement and a Vitamin C supplement for better absorption. (2) Bao-Dinh breathing: Code(s): R06.3 - Periodic breathing Status: Acute Assessment and Plan: Bao Dinh Respirations were present during this study. The cycle length was 65 seconds. The circulation time was 41.3 seconds. The FITNESS PLAN COORDINATOR resolved on the optimal pressure setting. Data The data obtained during this sleep study is adequate for interpretation. Certification This sleep study has been reviewed by a board certified sleep medicine physician.
== END 2025-01-04 07:05 | disposition home or self-care (01) ==
LOC: ANHCSM 08:00
PROVIDERS: PCP Internal Medicine; Visit Provider Internal Medicine
DX: G47.30 Sleep apnea, unspecified (principal); G47.33 Obstructive sleep apnea (adult) (pediatric)
CPT/HCPCS: 95811